=== PATIENT | female | born 1970 | race Caucasian/White ===

== ENCOUNTER 2020-02-19 14:56 | Outpatient (REF) | payer BC, SELFPAY | END 2020-02-19 14:57 | disposition home or self-care (01) | LOC: HO.LNP 14:56 | PROVIDERS: Visit Provider Hospitalist | DX: Z20.828 Contact with and (suspected) exposure to other viral communicable diseases (principal) | CPT/HCPCS: 87635 ==

== ENCOUNTER 2020-08-29 07:58 | Outpatient (REF) | payer BC, SELFPAY ==
[2020-08-29 08:45] LABS: MANUAL DIFF FLAG NO
[2020-08-29 08:47] LABS: Color Urine YELLOW; Glucose Urine UA NEG (NEG); Leukocyte Esterase Urine NEG (NEG); Nitrite Urine NEG (NEG); PH 5.5 (5.0-8.0); Specific Gravity - Urine >= 1.030 (1.005-1.025); Urine Blood NEG (NEG); Urine Ketones NEG (NEG); Urine Protein NEG (NEG-TRACE)
[2020-08-29 08:48] LABS: Appearance Urine CLEAR
[2020-08-29 08:51] LABS: Basophils Percent Auto 0.9 % (0-2); Eosinophils Absolute Auto 0.2 X10*3/uL (0.0-0.4); Eosinophils Percent Auto 3.8 % (0-4); Hematocrit 35.8 % (37-47); Hemoglobin 11.8 g/dl (12.0-16.0); Imm Gran Abs Auto 0.01 X10*3/uL (0.00-0.03); Imm Gran Pct Auto 0.2 % (0.0-0.4); Lymphocytes Absolute Auto 1.7 X10*3/uL (1.2-4.9); Lymphocytes Percent Auto 37.5 % (20-40); Mean Platelet Volume 10.1 fL (9.4-12.3); Monocytes Absolute Auto 0.3 X10*3/uL (0.1-1.2); Monocytes Percent Auto 7.1 % (2-11); Neutrophils Absolute Auto 2.3 X10*3/uL (2.0-8.3); Neutrophils Percent Auto 50.5 % (45-73); Platelet Count 261 X10*3/uL (160-400); Red Blood Count 3.81 X10*6/uL (4.20-5.50); Red Cell Distribution Width 12.1 % (11.0-16.0); White Blood Count 4.5 X10*3/uL (4.8-10.8)
[2020-08-29 09:10] LABS: Alanine Aminotransferase 21 U/L (0-31); Albumin Level 4.6 g/dL (3.5-5.0); Alkaline Phosphatase 55 U/L (39-117); Anion Gap 10 (12-20); Aspartate Amino Transferase 21 U/L (5-31); Bilirubin Total 0.3 mg/dL (0.0-1.0); Blood Urea Nitrogen 22 mg/dL (9-16); Calcium 9.3 mg/dL (8.4-10.2); Carbon Dioxide 28 mmol/L (22-29); Chloride 108 mmol/L (96-108); Cholesterol 227 mg/dL; Estimated Glomerular Filt Rate > 60; Glucose Fasting 100 mg/dL (60-99); HDL Cholesterol 51 mg/dL; LDL Cholesterol Calculated 161 mg/dl; Potassium 5.4 mmol/L (3.3-5.1); Sodium 141 mmol/L (135-145); Total Protein 6.8 g/dL (6.5-8.0); Triglycerides 76 mg/dL
[2020-08-29 09:35] LABS: TSH reflex Free T4 0.45 uIU/mL (0.32-4.0)
[2020-08-29 09:36] LABS: Erythrocyte Sedimentation Rate 6 MM/HR (0-20)
== END 2020-08-29 07:59 | disposition home or self-care (01) ==
LOC: HO.LAB 07:58
PROVIDERS: PCP Internal Medicine; Visit Provider Internal Medicine
DX: J30.9 Allergic rhinitis, unspecified (principal); K29.70 Gastritis, unspecified, without bleeding; G90.512 Complex regional pain syndrome I of left upper limb; M19.011 Primary osteoarthritis, right shoulder; M47.26 Other spondylosis with radiculopathy, lumbar region; M47.812 Spondylosis without myelopathy or radiculopathy, cervical region; E66.3 Overweight; E78.00 Pure hypercholesterolemia, unspecified
CPT/HCPCS: 36415; 80053; 80061; 81003; 84443; 85025; 85652

== ENCOUNTER 2020-12-06 12:15 | Outpatient (REF) | payer BC, SELFPAY ==
[2020-12-06 14:01] LABS: MANUAL DIFF FLAG NO
[2020-12-06 14:06] LABS: Basophils Percent Auto 0.5 % (0-2); Eosinophils Absolute Auto 0.2 X10*3/uL (0.0-0.4); Eosinophils Percent Auto 2.5 % (0-4); Hemoglobin 12.2 g/dl (12.0-16.0); Imm Gran Abs Auto 0.02 X10*3/uL (0.00-0.03); Imm Gran Pct Auto 0.3 % (0.0-0.4); Lymphocytes Absolute Auto 2.4 X10*3/uL (1.2-4.9); Lymphocytes Percent Auto 39.6 % (20-40); Mean Corpuscular Hemoglobin 30.7 pg (27.0-33.0); Mean Corpuscular Volume 93.2 fL (80-98); Mean Platelet Volume 10.4 fL (9.4-12.3); Monocytes Absolute Auto 0.4 X10*3/uL (0.1-1.2); Monocytes Percent Auto 6.5 % (2-11); Neutrophils Percent Auto 50.6 % (45-73); Platelet Count 339 X10*3/uL (160-400); Red Blood Count 3.97 X10*6/uL (4.20-5.50); Red Cell Distribution Width 12.1 % (11.0-16.0)
[2020-12-06 14:18] LABS: Anion Gap 13 (12-20); Blood Urea Nitrogen 16 mg/dL (9-16); Calcium 9.2 mg/dL (8.4-10.2); Carbon Dioxide 26 mmol/L (22-29); Chloride 109 mmol/L (96-108); Estimated Glomerular Filt Rate > 60; Glucose Random 94 mg/dL (60-115); Potassium 4.5 mmol/L (3.3-5.1); Sodium 143 mmol/L (135-145)
== END 2020-12-06 12:16 | disposition home or self-care (01) ==
LOC: HO.HMGCLDS 12:15
PROVIDERS: PCP Internal Medicine; Visit Provider Nurse Practitioner Family
DX: Z20.822 Contact with and (suspected) exposure to COVID-19 (principal); R19.7 Diarrhea, unspecified
CPT/HCPCS: 36415; 80048; 85025; U0003; U0005

== ENCOUNTER → 2021-01-16 13:03 | Outpatient (BNVA) | payer BC, SELFPAY | PROVIDERS: PCP Internal Medicine; Visit Provider Internal Medicine ==

== ENCOUNTER 2021-03-01 06:07 | Outpatient (REF) | payer BC, SELFPAY ==
--- NOTE | ~2021-03-01 | FL_ITS ---
EXAMINATION: XR FLUOROSCOPY WITH IMAGES CLINICAL INFORMATION: M47.26 - Other spondylosis with radiculopathy, lumbar region COMPARISON: Radiographs lumbar spine 02/03/2019 TECHNIQUE: Fluoroscopy performed by Dr. Chen. Fluoroscopy time: 1.0 minutes DAP: 2.56 Gycm2 Images: 3 FINDINGS: There are spinal needles overlying the outer left L4, and L5 neural foramen. There is contrast seen in the respective nerve sheaths. Some early transforaminal epidural extension is suggested. No visible vascular communication. FL/FL guidance in treatment room IMPRESSION: Fluoroscopy for pain management procedures.
== END 2021-03-01 06:08 | disposition home or self-care (01) ==
LOC: HO.RADIR 06:07
PROVIDERS: Visit Provider Internal Medicine
DX: M47.26 Other spondylosis with radiculopathy, lumbar region (principal); M53.86 Other specified dorsopathies, lumbar region
CPT/HCPCS: 64483; 64484; J1100; Q9967

== ENCOUNTER → 2021-04-07 08:02 | Outpatient (BNVA) | payer BC, SELFPAY | PROVIDERS: PCP Internal Medicine; Visit Provider Internal Medicine ==

== ENCOUNTER → 2021-05-15 14:17 | Outpatient (BNVA) | payer BC, SELFPAY | PROVIDERS: PCP Internal Medicine; Visit Provider Internal Medicine ==

== ENCOUNTER 2021-06-14 06:21 | Outpatient (REF) | payer BC, SELFPAY ==
--- NOTE | ~2021-06-14 | FL_ITS ---
EXAMINATION: XR FLUOROSCOPY WITH IMAGES CLINICAL INFORMATION: Pain lumbar region COMPARISON: 03/01/2021 TECHNIQUE: Fluoroscopy performed by Dr. Chen. Fluoroscopy time: 0.1 minutes DAP: 0.306 Gycm2 Images: 2 images are saved. FL/FL guidance in treatment room FINDINGS AND IMPRESSION: Fluoroscopic imaging equipment was needed during injection procedure at the left L5-S1 level. For details regarding the procedure, please refer to Dr. Chen' report.
== END 2021-06-14 06:22 | disposition home or self-care (01) ==
LOC: HO.RADIR 06:21
PROVIDERS: Visit Provider Internal Medicine
DX: M53.86 Other specified dorsopathies, lumbar region (principal)
CPT/HCPCS: 62323; J1040; Q9967

== ENCOUNTER → 2021-06-23 11:17 | Outpatient (BNVA) | payer BC, SELFPAY | PROVIDERS: PCP Internal Medicine; Visit Provider Internal Medicine ==

== ENCOUNTER 2021-06-29 11:00 | Outpatient (RCR) | payer BC, SELFPAY ==
--- NOTE | 2021-06-20 18:11 | MHC.PT.EP ---
[facility] [place] Office [place] Office [place] Office [address] Bandra Nichols [address] [phone] F: [phone] F: [phone] F: [phone] F: [phone] Physical Therapy Plan of Care Date of Evaluation: Date of Surgery: N/A Diagnosis: Sciatica associated with lumbar spine Assessment: Pt is a 51yo F who presents to PT with low back pain radiating into L LE. She presents today with current impairments in pain, decreased lumbar ROM, decreased core stab, decreased LE strength, impaired postured, gait, and balance. She had increased pain when assessing L knee extension and L dorsiflexion which may be due to increased neural tension. She is limited functionally by prolonged sitting, prolonged standing, walking, bending, and stair navigation. Her radiating symptoms were centralizing with extension based exercises on initial evaluation. Her signs and symptoms may be consistent with lumbar radiculopathy. She is a good candidate for skilled PT in order to address current impairments to decrease pain and maximize functional mobility. She will be seen 2x/week for 5 weeks and will be reassessed at that time. Frequency and Duration: The patient will be seen 2x/week for 5 weeks Short Term Goals: Pt will be I with HEP to promote self management of symptoms Pt will have centralization of symptoms Pt will demonstrate improvements in postural awareness and body mechanics Vp Home Health Goals: Pt will tolerate ambulation > 30 min with improved gait mechanics with pain < 4 /10 Pt will demonstrate ability to squat to cotton picker object from the floor with proper mechanics Pt will demonstrate improvements in functional mobility as evidenced by statistically significant improvement in Modified Oswestry Low Back Pain Disability Questionnaire Treatment Plan: Modalities to reduce pain, spasms and effusion. Manual therapy to restore motion and function. Therapeutic exercise to improve strength and flexibility. Neuromuscular re-education for posture and balance. Therapeutic activities to return to functional activities of daily living. Electronically signed by: Fallon Bartholomew, PT, DPT Please sign and return to therapist. Thank you for your referral.
--- NOTE | 2021-07-10 10:23 | MHC.PT.DC ---
[facility] [place] Office [place] Office [place] Office [address] Bandar Nichols [address] [phone] F: [phone] F: [phone] F: [phone] F: [phone] Physical Therapy Discharge Report Diagnosis: Sciatica associated with lumbar spine Date of Surgery: N/A Date of Evaluation: 06/20/21 Date of Discharge: 07/10/21 Treatments to Date: 2 Cancellations to Date: 2 No Shows to Date: 0 Discharge Status: Patient Elected to Stop Discharge Summary: Pt attended initial PT evaluation and 1 treatment session. Her last attended PT appointment was 06/29/21. Pt called [facility] 07/06/21 and reports that she fell and requested to self D/C from PT. Pt is being D/C from skilled PT at this time. Pt current level of function unknown at this time. Electronically signed by: Fallon Bartholomew, PT, DPT Please sign and return to therapist. Thank you for your referral.
== END 2021-07-10 10:24 | disposition home or self-care (01) ==
LOC: HO.PT 11:00
PROVIDERS: PCP Internal Medicine; Visit Provider Internal Medicine
DX: M53.88 Other specified dorsopathies, sacral and sacrococcygeal region (principal)
CPT/HCPCS: 97014; 97110; 97162

== ENCOUNTER → 2021-07-14 08:34 | Outpatient (BNVA) | payer BC, SELFPAY | PROVIDERS: PCP Internal Medicine; Visit Provider Internal Medicine ==

== ENCOUNTER 2021-11-25 09:56 | Emergency (ER) | payer BC, SELFPAY ==
--- NOTE | ~2021-11-25 | XR_ITS ---
EXAMINATION: XR HAND, LEFT CLINICAL INFORMATION: Pain. Evaluate for a fracture. COMPARISON: Left hand radiographs dated 02/23/2019. TECHNIQUE: PA, lateral, and oblique views of the left hand. FINDINGS: No acute fracture or dislocation. Severe joint space narrowing with prominent bony remodeling and marginal osteophytes at the 1st carpometacarpal joint. More moderate osteoarthritis at the triscaphe joint as well as scattered throughout the metacarpophalangeal and interphalangeal joints. No abnormal soft tissue calcification. XR/XR hand LT 2V IMPRESSION: No acute fracture or dislocation. Severe osteoarthritis at the 1st carpometacarpal joint with additional osteoarthritis throughout the triscaphe, metacarpophalangeal, and interphalangeal joints, slightly progressed.
[2021-11-25 10:51] VITALS: BP 131/73; PULSE 88; RESP 16; TEMP 35.7; O2SAT 100; BMI 21.7
--- NOTE | 2021-11-25 12:45 | ED.EXTPRO ---
HPI - Extremity Problem General Chief complaint: Extremity Injury, Upper Stated complaint: ? Fx L Thumb Time Seen by Provider: 11/25/21 12:32 Source: patient Mode of arrival: ambulatory Limitations: no limitations History of Present Illness HPI Narrative: Patient is a 51 year old female presenting to the emergency department today with left thumb pain. Patient states that she was attempting to break up a fight between her dog and another dog when her left thumb was pushed backwards and she felt a pop. Patient states that the left thumb still hurts and she is unable to move it. Patient denies any dizziness, lightheadedness, abdominal pain, nausea, vomiting, fever, chills, blurry vision, double vision, loss of vision, chest pain, difficulty breathing, shortness of breath, back pain, night sweats, pain with urination, increased urinary frequency, increased urinary urgency, blood in her urine or stool, syncope or a near syncopal episode, bowel incontinence, bladder incontinence, bowel retention, bladder retention, or any other complaints at this time. MD Complaint: extremity pain Onset (ago): hour(s) Pain Consistency: constant Location: left and other (thumb) Severity scale (1-10): 3 Quality: aching and dull Radiation: none Relieving factors: nothing Exacerbating factors: range of motion Associated symptoms: denies other symptoms Related Data Home Medications Medication Instructions Recorded Confirmed omeprazole 20 mg capsule,delayed 20 mg PO DAILY 02/19/20 10/16/21 release sennosides 8.6 mg tablet (Senna 8.6 mg PO BEDTIME 03/10/20 10/16/21 Laxative) Previous Rx's Medication Instructions Recorded citalopram 20 mg tablet 20 mg PO DAILY 90 days #90 tabs 07/10/21 sumatriptan succinate 100 mg tablet 100 mg PO .COMPLEX 30 days #10 tabs 10/13/21 cyclobenzaprine 10 mg tablet 10 mg PO Q8H PRN for muscle spasm 11/20/21 #90 tabs hydrocodone 7.5 mg-acetaminophen 1 tab PO .4x a day PRN pain 28 11/20/21 325 mg tablet days #112 tabs lorazepam 1 mg tablet 1 mg PO QID PRN anxiety 30 days 11/20/21 #120 tabs Allergies Allergy/AdvReac Type Severity Reaction Status Date / Time amoxicillin [Amoxicillin] Allergy Severe RASH Verified 11/25/21 10:55 Sulfa (Sulfonamide Allergy Severe RASH Verified 11/25/21 10:55 Antibiotics) pravastatin Allergy Unknown myalgia Verified 11/25/21 10:55 pregabalin Allergy Unknown Muscle Verified 11/25/21 10:55 cramps atorvastatin AdvReac Unknown leg pain Verified 11/25/21 10:55 and swelling ezetimibe [Zetia] AdvReac Unknown joint pain Verified 11/25/21 10:55 oxycodone [Percocet] AdvReac Unknown nausea, Verified 11/25/21 10:55 upset stomach, increased headaches rosuvastatin AdvReac Unknown myalgia Verified 11/25/21 10:55 Review of Systems Constitutional: Constitutional: Reports no additional constitutional complaints, Denies chills, Denies fever(s) and Denies night sweats Eyes: Eyes: Reports no additional eye complaints, Denies blurry vision, Denies change in vision, Denies diplopia, Denies eye discharge, Denies loss of vision and Denies eye pain ENT: Denies dizziness Cardiovascular: Cardiovascular: Reports no additional cardiovascular complaints, Denies chest pain, Denies lightheadedness, Denies Loss of Consciousness and Denies dyspnea Respiratory: Respiratory: Reports no additional respiratory complaints and Denies dyspnea Gastrointestinal: Gastrointestinal: Reports no additional gastrointestinal complaints, Denies abdominal pain, Denies melena, Denies hematochezia, Denies change in bowel habits and Denies change in stool character Genitourinary: Genitourinary: Denies hematuria, Denies urinary frequency, Denies dysuria, Denies urinary incontinence, Denies urinary hesitancy and Denies urinary urgency Musculoskeletal: Musculoskeletal: Reports no additional musculoskeletal complaints, Denies numbness and Denies tingling Comments: left thumb pain Neurologic: Denies dizziness, Denies loss of vision, Denies numbness and Denies tingling Psychiatric: Psychiatric: Reports no additional psychiatric complaints Endocrine: Endocrine: Reports no additional endocrine complaints Hematologic/Lymphatic: Hematologic/Lymphatic: Reports no additional hematologic/lymphatic complaints Allergic/Immunologic: Allergic/Immunologic: Reports no additional allergic/immunologic complaints PMFSH Past Medical History Attestation statement: The following information was validated with the patient. Source: old records reviewed Medical History Allergic rhinitis Anxiety Cervical spondylosis Depression Gastritis Migraine Osteoarthritis of spine with radiculopathy, lumbar region Overweight (BMI 25.0-29.9) Primary osteoarthritis of right shoulder Pure hypercholesterolemia Reflex sympathetic dystrophy of left upper extremity Surgical History History of carpal tunnel release History of cervical discectomy History of colonoscopy History of removal of cyst History of repair of rotator cuff S/P JOLENE-BSO (total abdominal hysterectomy and bilateral salpingo-oophorectomy) Family History Family History Father Prostate cancer Mother Lung cancer Hypertension CVD (cardiovascular disease) Diabetes Chronic mental illness Maternal Grandmother Colon cancer Other Mental health problem Social History Social History Housing: House Alcohol intake: never Patient Tobacco Use Status: Former Tobacco user e-Cigarette/Vaping Use: Never Used Second Hand Smoke Exposure: Yes Use of substances other than those prescribed or required for medical reasons: No Advance Directives: No Advance Directives Information Provided: No service: No Current occupational status: employed Cognitive needs: No Hearing needs: No Vision needs: Yes Physical Exam Vital Signs: Vital Signs: Last Vital Signs Temp 96.2 F L 11/25/21 10:51 Pulse 88 11/25/21 10:51 Resp 16 11/25/21 10:51 BP 131/73 11/25/21 10:51 Pulse Ox 100 11/25/21 10:51 O2 Del Method 11/25/21 10:51 BMI result Body Mass Index 21.7 Const: General: cooperative, no acute distress, alert and awake Nutritional Appearance: well nourished Orientation/consciousness: patient oriented x3 Limitations: no limitations HEENT: Head: Yes normal to inspection and Yes atraumatic Ears: hearing grossly normal bilaterally and external ears normal General nose exam: Normal external nose present, no nasal discharge noted and no epistaxis Face and sinus: Yes normal facial exam, No abrasion and No laceration Mouth: Normal oral and palatal mucosa present, no drooling and no muffled voice Eyes: General: appearance normal, both eyes and all related structures Periorbital: periorbital findings normal Eyelids: Yes eyelids normal Conjunctivae: conjunctivae normal Pupils: Equal, round and reactive pupils present EOM: EOMs intact bilaterally Neck: Neck: Yes normal visual inspection, Yes full ROM and Yes no lymphadenopathy Chest: Chest palpation & inspection: normal inspection of the chest Resp: Effort & Inspection: normal respiratory effort and able to speak in complete sentences Auscultation: clear to auscultation bilaterally Cardio: Rate: regular rate Rhythm: regular rhythm GI: Inspection: Yes normal to inspection Neuro: General: patient oriented x3 and moves all extremities Cranial nerves: Yes Equal, round and reactive pupils present Cognition (Neuro): normal cognition Motor exam (neuro): 5/5 motor strength present throughout Sensory Exam: Normal double simultaneous stimulation for sensation Coordination: [id number] test normal Extrem: Other: decreased ROM of the left thumb, unable to touch left thumb to finger tips General: Yes normal to inspection and Yes capillary refill normal Psych: Appearance: grossly normal Mental Status: mental status grossly normal Affect: normal affect Attitude: cooperative Thought process: Normal thought process present Thought content: Normal thought content present Insight: Good insight present (Psych) MDM - Extremity (Nontraumatic) MDM Narrative Medical decision making narrative: Patient is a 51 year old female presenting to the emergency department today with left thumb pain. Patient's physical exam showed decreased ROM of the left thumb. Patient was unable to touch left thumb to left finger tips. Patient's left hand x-ray showed no acute fracture but did show worsening osteoarthritis. I explained my physical exam findings as well as all test results to the patient. I answered all questions asked by the patient. Thumb spica splint applied to the patient's left thumb, without incident. Patient's PMS was in tact prior to and after splint placement. I stressed the importance of the patient taking her medication as prescribed. I stressed the importance of the patient following up with her primary care provider. I stressed the importance of the patient returning to the emergency department immediately if her symptoms were to worsen or if she were to develop any dizziness, shortness of breath, difficulty breathing, chest pain, blurry vision, loss of vision, nausea, vomiting, abdominal pain, fever, chills, back pain, or any other complaints. Patient verbalized agreement and understanding with this treatment plan and discharge. Medical Records Attestation: I reviewed the patient's medical records. Imaging Data Left hand x-ray: Attestation: I personally reviewed and interpreted this imaging study as follows: My impression: No acute fracture. Radiologist's impression: EXAMINATION: XR HAND, LEFT CLINICAL INFORMATION: Pain. Evaluate for a fracture.? COMPARISON: Left hand radiographs dated 02/23/2019.? TECHNIQUE: PA, lateral, and oblique views of the left hand. FINDINGS: No acute fracture or dislocation. Severe joint space narrowing with prominent bony remodeling and marginal osteophytes at the 1st carpometacarpal joint. More moderate osteoarthritis at the triscaphe joint as well as scattered throughout the metacarpophalangeal and interphalangeal joints. No abnormal soft tissue calcification.? XR/XR hand LT 2V IMPRESSION: No acute fracture or dislocation. ? Severe osteoarthritis at the 1st carpometacarpal joint with additional osteoarthritis throughout the triscaphe, metacarpophalangeal, and interphalangeal joints, slightly progressed. Dictated By: Daniel Castellanos MD Signed By: Electronically signed by Daniel Castellanos MD 11/25/21 1137 Procedures Orthopedic Splinting/Casting Injury #1: Side: left Upper Extremity Injury Location: hand Upper Extremity Immobilizer: thumb spica Discharge Plan Discharge Clinical Impression: Skier's thumb Patient Disposition: Home, Self-Care Instructions: Carolinaer's Thumb (ED) Additional Instructions: Follow up with your primary care provider and an orthopedic provider. Return to the emergency department immediately if your symptoms worsen or if you develop any dizziness, shortness of breath, difficulty breathing, chest pain, blurry vision, loss of vision, nausea, vomiting, abdominal pain, fever, chills, back pain, or any other complaints. Prescriptions: No Action sumatriptan succinate 100 mg tablet 100 mg PO .COMPLEX 30 Days Qty: 10 3RF Rx Instructions: 100 mg PO as directed as needed. may repeat one more time if needed; hydrocodone-acetaminophen 7.5-325 mg tablet 1 tab PO .4x a day PRN (Reason: pain) 28 Days Qty: 112 0RF lorazepam 1 mg tablet 1 mg PO QID PRN (Reason: anxiety) 30 Days Qty: 120 1RF cyclobenzaprine 10 mg tablet 10 mg PO Q8H PRN (Reason: for muscle spasm) Qty: 90 1RF omeprazole 20 mg capsule,delayed release(DR/EC) 20 mg PO DAILY sennosides [Senna Laxative] 8.6 mg tablet 8.6 mg PO BEDTIME citalopram 20 mg tablet 20 mg PO DAILY 90 Days Qty: 90 3RF Referrals: [facility] [place] [Provider Group] (Call to establish and follow up with an orthopedic provider. ) Claude Steele MD [Primary Care Provider] - Interventions: ED Discharge Assessment Last Done: 11/25/21 13:03 Discharge Date/Time: 11/25/21 13:04 Print Language: Ethiopian
== END 2021-11-25 13:03 | disposition home or self-care (01) ==
PROVIDERS: Emergency Provider Student in an Organized Health Care Education/Training Program; PCP Internal Medicine
DX: S63.622A Sprain of interphalangeal joint of left thumb, initial encounter (principal); W54.8XXA Other contact with dog, initial encounter; Y93.89 Activity, other specified; Y92.9 Unspecified place or not applicable; Y99.9 Unspecified external cause status; M19.042 Primary osteoarthritis, left hand; M18.12 Unilateral primary osteoarthritis of first carpometacarpal joint, left hand
CPT/HCPCS: 29125; 73120; 99283

== ENCOUNTER 2021-11-28 13:11 | Outpatient (REF) | payer BC, SELFPAY ==
--- NOTE | ~2021-11-28 | XR_ITS ---
EXAMINATION: XR HAND, LEFT CLINICAL INFORMATION: Hand pain COMPARISON: 11/25/2021 TECHNIQUE: PA, lateral, and oblique views of the left hand. FINDINGS: Radiopaque rings are present on the third and fourth digits. No acute fracture or dislocation. Mild degenerative changes at the first interphalangeal joint and first metacarpophalangeal joint with osteophytes present. Severe degenerative change of the first carpometacarpal joint with narrowing, sclerosis, and osteophyte formation. Additional mild degenerative changes throughout the interphalangeal joints of the remaining digits with small osteophytes noted. The soft tissues are unremarkable. XR/XR hand LT min 3V IMPRESSION: Degenerative changes throughout, which are similar to the recent prior imaging.
== END 2021-11-28 13:12 | disposition home or self-care (01) ==
LOC: HO.HOSX 13:11
PROVIDERS: Visit Provider Orthopaedic Surgery
DX: M79.642 Pain in left hand (principal)
CPT/HCPCS: 73130

== ENCOUNTER 2021-12-27 08:27 | Outpatient (REF) | payer BC, SELFPAY ==
--- NOTE | ~2021-12-27 | XR_ITS ---
EXAMINATION: XR WRIST, LEFT CLINICAL INFORMATION: Pain. COMPARISON: None TECHNIQUE: PA, lateral, and oblique views of the left wrist, together with a dedicated navicular view. FINDINGS: There is bony demineralization. There is a neutral ulnar variance. There is marked osteoarthritic change of the first carpometacarpal joint. There is mild to moderate osteoarthritic change of the triscaphe joint. The proximal and distal carpal rows are intact. No fracture or dislocation is seen. There is no abnormal bone erosion. No soft tissue swelling, gas or foreign body is seen. XR/XR wrist LT w scaphoid IMPRESSION: There is osteoarthritic change of the left first carpometacarpal and triscaphe joints. No fracture or dislocation is seen. There is no abnormal bone erosion.
== END 2021-12-27 08:28 | disposition home or self-care (01) ==
LOC: HO.HOSX 08:27
PROVIDERS: Visit Provider Orthopaedic Surgery
DX: M25.532 Pain in left wrist (principal)
CPT/HCPCS: 73110

== ENCOUNTER 2022-01-23 10:01 | Outpatient (REF) | payer BC, SELFPAY ==
--- NOTE | ~2022-01-23 | MR_ITS ---
EXAMINATION: MRI OF THE LEFT WRIST WITHOUT CONTRAST CLINICAL INFORMATION: Left wrist pain. COMPARISON: Radiograph dated 12/27/2021. TECHNIQUE: Multiplanar MR imaging was obtained through the left wrist without contrast on a 1.5 Debra magnet. FINDINGS: LIGAMENTS/TFCC: Ill-defined intermediate signal intensity is present throughout 3 bands of the scapholunate ligament, likely due to intraligamentous degenerative signal. A sprain is less likely. Small ganglion cyst likely arises at the palmar aspect of the scapholunate ligament with small cystic foci extending into the scaphoid and lunate. Lunotriquetral ligament and the TFCC are intact. BONES AND ARTICULAR CARTILAGE: Severe osteoarthritis is evident at the 1st CMC joint with marked nonuniform articular cartilage loss, articular cortical remodeling, subarticular sclerosis, large marginal osteophytes, and subchondral cystic change. There is more [id number] osteoarthritis in the triscaphe joint as well as mild osteoarthritis in the radiocarpal, 2nd CMC, and pisotriquetral joints. Multiple carpal cysts are evident in the carpal bones without appreciable erosions. No fractures. Alignment appears appropriate. JOINT FLUID: No effusion. Small volume of intra-articular debris in the radiocarpal joint. MUSCLES AND TENDONS: Intact. No tendon tears or tenosynovitis. Normal muscle signal.l NERVES: Carpal tunnel and Guyon's canal are unremarkable. SUPERFICIAL SOFT TISSUES: No significant ganglion cysts. MR/MR wrist LT wo con IMPRESSION: 1. Severe osteoarthritis of the 1st CMC joint. More mild osteoarthritis in other wrist joints, most notably the triscaphe joint. 2. Intermediate signal in the scapholunate ligament is likely due to intrasubstance degeneration. No discrete tears. A mild sprain is possible, though felt to be less likely.
== END 2022-01-23 10:02 | disposition home or self-care (01) ==
LOC: HO.MRI 10:01
PROVIDERS: Visit Provider Orthopaedic Surgery
DX: M25.532 Pain in left wrist (principal)
CPT/HCPCS: 73221

== ENCOUNTER 2022-06-12 14:09 | Outpatient (REF) | payer BC, SELFPAY ==
[2022-06-12 15:03] LABS: Influenza A PCR NEGATIVE (Negative); Influenza B PCR NEGATIVE (Negative); Resp Syncy Virus RNA Qual PCR NEGATIVE (Negative); SARS COV2 PCR INHOUSE NEGATIVE (Negative)
== END 2022-06-12 14:10 | disposition home or self-care (01) ==
LOC: HO.LNP 14:09
PROVIDERS: Visit Provider Nurse Practitioner Family
DX: R09.89 Other specified symptoms and signs involving the circulatory and respiratory systems (principal); Z20.822 Contact with and (suspected) exposure to COVID-19
CPT/HCPCS: 0241U

== ENCOUNTER 2022-11-20 09:13 | Outpatient (REF) | payer MEDICAID, SELFPAY ==
[2022-11-20 09:32] LABS: MANUAL DIFF FLAG NO
[2022-11-20 09:58] LABS: Appearance Urine Clear; Color Urine Yellow; Glucose Urine UA Negative (Negative); Leukocyte Esterase Urine Negative (Negative); Nitrite Urine Negative (Negative); PH 5.5 (5.0-9.0); Specific Gravity - Urine 1.025 (1.005-1.025); Urine Blood Negative (Negative); Urine Ketones Negative (Negative); Urine Protein Negative (Neg-Trace)
[2022-11-20 09:58] LABS: Basophils Percent Auto 0.7 % (0-2); Eosinophils Absolute Auto 0.1 X10*3/uL (0.0-0.4); Eosinophils Percent Auto 1.2 % (0-4); Hematocrit 37.3 % (37.0-47.0); Hemoglobin 12.4 g/dl (12.0-16.0); Imm Gran Abs Auto 0.01 X10*3/uL (0.00-0.03); Imm Gran Pct Auto 0.2 % (0.0-0.4); Lymphocytes Absolute Auto 1.6 X10*3/uL (1.2-4.9); Mean Corpuscular HGB Conc 33.2 g/dl (31.0-35.0); Mean Corpuscular Hemoglobin 31.5 pg (27.0-33.0); Mean Corpuscular Volume 94.7 fL (80.0-98.0); Mean Platelet Volume 10.3 fL (9.4-12.3); Monocytes Absolute Auto 0.3 X10*3/uL (0.1-1.2); Monocytes Percent Auto 5.4 % (2-11); Neutrophils Percent Auto 65.5 % (45-73); Platelet Count 312 X10*3/uL (160-400); Red Blood Count 3.94 X10*6/uL (4.20-5.50); Red Cell Distribution Width 12.3 % (11.0-16.0); White Blood Count 6.1 X10*3/uL (4.8-10.8)
[2022-11-20 10:37] LABS: Erythrocyte Sedimentation Rate 4 MM/HR (0-20)
[2022-11-20 10:49] LABS: Alanine Aminotransferase 16 U/L (0-31); Albumin Level 4.7 g/dL (3.5-5.0); Alkaline Phosphatase 60 U/L (39-117); Anion Gap 13 (12-20); Aspartate Amino Transferase 13 U/L (5-31); Bilirubin Total 0.3 mg/dL (0.0-1.0); Blood Urea Nitrogen 19 mg/dL (9-16); Calcium 9.1 mg/dL (8.4-10.2); Carbon Dioxide 25 mmol/L (22-29); Chloride 107 mmol/L (96-108); Cholesterol 231 mg/dL; Estimated Glomerular Filt Rate > 60; Glucose Fasting 97 mg/dL (60-99); HDL Cholesterol 55 mg/dL; LDL Cholesterol Calculated 157 mg/dl; Potassium 4.7 mmol/L (3.3-5.1); Sodium 140 mmol/L (135-145); Total Protein 7.1 g/dL (6.5-8.0); Triglycerides 99 mg/dL
[2022-11-20 11:05] LABS: TSH reflex Free T4 0.46 uIU/mL (0.32-4.0)
== END 2022-11-20 09:14 | disposition home or self-care (01) ==
LOC: HO.LAB 09:13
PROVIDERS: PCP Internal Medicine; Visit Provider Internal Medicine
DX: Z00.00 Encounter for general adult medical examination without abnormal findings (principal); E55.9 Vitamin D deficiency, unspecified; J30.9 Allergic rhinitis, unspecified; E78.00 Pure hypercholesterolemia, unspecified; R30.0 Dysuria; M79.7 Fibromyalgia
CPT/HCPCS: 36415; 80053; 80061; 81003; 82306; 84443; 85025; 85652

== ENCOUNTER 2023-01-31 09:04 | Outpatient (AMB) | payer OTHER, SELFPAY ==
[2023-01-31 09:08] VITALS: BP 124/80; PULSE 75; O2SAT 99; BMI 19.4
--- NOTE | 2023-01-31 09:08 | MHC.PC.OV ---
Vital Signs 01/31/23 09:08 Height 5 ft 6 in Weight 120 lb BMI 19.4 BP 124/80 Blood Pressure Location Lt brachial Position Sitting Pulse 75 Pulse Source Pulse Oximeter Pulse Oximetry (%) 99 Oxygen Delivery Method Room Air Intake Visit Reasons: 3 month f/u Logistician Required: No Accompanied by: Self / Same As Patient Allergies amoxicillin [Amoxicillin] Allergy (Severe, Verified 01/31/23 09:56) RASH Sulfa (Sulfonamide Antibiotics) Allergy (Severe, Verified 01/31/23 09:56) RASH pravastatin Allergy (Unknown, Verified 01/31/23 09:56) myalgia pregabalin Allergy (Unknown, Verified 01/31/23 09:56) Muscle cramps atorvastatin Adverse Reaction (Unknown, Verified 01/31/23 09:56) leg pain and swelling ezetimibe [Zetia] Adverse Reaction (Unknown, Verified 01/31/23 09:56) joint pain oxycodone [Percocet] Adverse Reaction (Unknown, Verified 01/31/23 09:56) nausea, upset stomach, increased headaches rosuvastatin Adverse Reaction (Unknown, Verified 01/31/23 09:56) myalgia Medication List - Last Reconciled 01/31/23 by Claude Steele MD citalopram 20 mg PO DAILY 90 days hydrocodone-acetaminophen 7.5-325 mg 1 tab PO .4x a day PRN 28 days lorazepam 1 mg PO QID PRN 30 days omeprazole 20 mg PO DAILY sennosides (Senna Laxative) 8.6 mg PO BEDTIME sumatriptan succinate 100 mg PO as directed as needed. may repeat one more time if needed; 30 days zolpidem 10 mg PO BEDTIME PRN NS Tobacco use date assessed: 01/31/23 Dental Screening Dental Screen Date: 01/31/23 Did you have a dental visit in the last 12 months?: Yes Did you have a dental problem in the last 6 months where you did not have access to dental care?: No Was dental information given to patient?: Patient has dentist HPI 3 month f/u HPI Details Patient comes in today for her follow up visit States that she has been losing a lot of weight (unintentionally) lately Is still experiencing increased pain (chronic) over her lower back and over her left SI joint area She underwent MIS fixation of the left SI joint for stabilization with Dr. Salvador Hurt last February 2022 at the [facility] States that the surgery helped somewhat in the beginning but her pain seems to have gotten worse again lately She was seen by orthopedics at [facility] last month for her recurrent right shoulder pain Was reportedly diagnosed with a frozen shoulder and given a cortisone injection, which she states helped a lot Relates increased pain over her back at the lower thoracic area bilaterally (at the bra line) for the past 3 months Notes that the pain there feels worse with deep breathing and with movement and exertion Does not recall any recent injury or trauma to her back States that she also had trouble getting her pain med Rx refilled recently due to some dispute between her pharmacy chain and her insurance company and she had to switch her pharmacy now to [facility] in [place] Also relates experiencing recurrent sharp pains in her right ear for over a month now She denies any fever or sore throat; denies any cough or cold symptoms lately Denies any chest pains, no shortness of breath No nausea/ vomiting, no abdominal pain No change in bowel habits noted She had her follow-up labs done a couple of months ago - to discuss her results [facility] Medical History Overweight (BMI 25.0-29.9) Depression Anxiety Allergic rhinitis Gastritis Reflex sympathetic dystrophy of left upper extremity Cervical spondylosis Osteoarthritis of spine with radiculopathy, lumbar region Primary osteoarthritis of right shoulder Pure hypercholesterolemia Migraine Surgical History History of cervical discectomy S/P JOLENE-BSO (total abdominal hysterectomy and bilateral salpingo-oophorectomy) History of carpal tunnel release History of removal of cyst History of colonoscopy History of repair of rotator cuff Family History Father Prostate cancer Mother Lung cancer Hypertension CVD (cardiovascular disease) Diabetes Chronic mental illness Maternal Grandmother Colon cancer Other Mental health problem Social History Housing: House Alcohol intake: never Patient Tobacco Use Status: Former Tobacco user e-Cigarette/Vaping Use: Never Used Second Hand Smoke Exposure: Yes service: No Current occupational status: employed 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 1. Little interest or pleasure in doing things: not at all 2. Feeling down, depressed, or hopeless: not at all 3. Trouble falling or staying asleep, or sleeping too much: not at all 4. Feeling tired or having little energy: not at all 5. Poor appetite or overeating: not at all 6. Feeling bad about yourself - or that you are a failure or have let yourself or your family down: not at all 7. Trouble concentrating on things, such as reading the newspaper or watching television: not at all 8. Moving or speaking so slowly that other people could have noticed. Or the opposite - being so fidgety or restless that you have been moving around a lot more than usual: not at all 9. Thoughts that you would be better off or of hurting yourself in some way: not at all Total score: 0 Depression Screening Interpretation: Negative (is on Rx) 83464 - PHQ-9 Billing: Yes Source: Developed by Drs. Eulogio Obregon, Marianela Smith, Alec Zapata and colleagues, with an educational sunshine from [employer]. Thrive Questionnaire Date Thrive assessed: 01/31/23 I am a: Patient What is your living situation today?: I have a steady place to live Within the past 12 months, did the food you bought not last and you didn't have the money to get more?: Never true Within the past 12 months, did you worry whether your food would run out before you got money to buy more?: Never true Do you have trouble paying for medicines?: No Do you have trouble getting transportation to medical appointments?: No Do you have trouble paying your heating and electricity bill?: No Do you have trouble taking care of your child, family member or friend?: No Do you have trouble with day-to-day activities such as bathing, preparing meals, shopping, managing finances, etc.?: No Are you currently unemployed and looking for a job?: No Are you interested in more education?: No Currently or been in a relationship where the following occur: no concerns reported AUDIT C Alcohol Use Questionnaire (AUDIT-C) 1. How often do you have a drink containing alcohol?: Never 3. How often do you have six or more drinks on one occasion?: Never Total Score: 0 Score Reviewed/Action Taken: Yes WALE-7 AMB Questionnaire WALE-7 Date WALE - 7 assessed: 01/31/23 Feeling nervous, anxious, or on edge: 1 = Several days Not being able to stop or control worryin = Several days Worrying too much about different things: 1 = Several days Trouble relaxin = Several days Being so restless that it is hard to sit still: 1 = Several days Becoming easily annoyed or irritable: 1 = Several days Feeling afraid as if something awful might happen: 1 = Several days Total WALE-7 score (0-4 normal; 5-9 mild; 10-14 moderate; 15-21 severe): 7 Source: Developed by Drs. Eulogio Obregon, Marianela Smith, Alec Zapata and colleagues, with an educational sunshine from [employer]. Review of Systems Const Denies chills, Reports fatigue, Denies fever(s) and Denies headache(s) ENT Denies dysphagia, Denies dizziness, Denies otalgia, Denies headache(s), Reports neck pain (chronic), Denies odynophagia and Denies sore throat Card Denies chest pain, Denies rapid heart rate, Denies irregular heart rhythm, Denies palpitations and Denies dyspnea Resp Denies chest congestion, Denies cough, Denies dyspnea and Denies wheezing GI Denies abdominal pain, Denies bloating, Reports constipation (chronic - mainly due to her pain meds), Denies dysphagia, Denies heartburn, Denies diarrhea, Denies nausea, Denies odynophagia and Denies vomiting Denies hematuria, Denies nocturia, Denies dysuria, Denies urinary incontinence and Denies urinary urgency Musc Reports back pain (chronic, over the lower back), Reports arthralgias (over the left shoulder and left wrist), Denies joint swelling, Denies muscle weakness, Reports neck pain (chronic) and Reports radiating pain into limb (left arm) Skin/Breast Denies rash Neuro Denies dizziness, Denies headache(s) and Denies paresthesias Endo Reports fatigue and Denies palpitations Jose/Lymph Denies easy bruising Aller/Immun Denies wheezing Physical exam (Primary Care) Vital Signs: Last Vital Signs Pulse 75 01/31/23 09:08 BP 124/80 01/31/23 09:08 Pulse Ox 99 01/31/23 09:08 Oxygen Delivery Method Room Air 01/31/23 09:08 BMI result Body Mass Index 19.4 Tobacco/Smoking Status: Tobacco use Status Tobacco use date assessed 01/31/23 01/31/23 09:10 Patient Tobacco Use Status Former Tobacco user 01/31/23 09:10 e-Cigarette/Vaping Use Never Used 01/31/23 09:10 PHQ-9: PHQ-9 Score PHQ-9: Total score 0 01/31/23 21:27 Depression Screening Interpretation: Negative (is on Rx) Thrive Assessment: Date of Thrive Assessment Date Thrive assessed 01/31/23 01/31/23 09:10 Currently or been in a relationship where the following occur: no concerns reported Const General: no acute distress and alert HENMT Ears: TM normal on the left and TM abnormal bulging on the right, erythematous on the right and perforated without discharge on the right Throat: Yes posterior oropharynx normal and Yes tonsils normal (no TP congestion) Neck Neck: Yes no lymphadenopathy and Yes supple Thyroid: Thyroid normal Resp Auscultation: clear to auscultation bilaterally, no rales and no wheezes Cardio Rate: regular rate Rhythm: regular rhythm Heart sounds: no murmurs GI Palpation (GI): Soft to palpation and nontender Auscultation: normal bowel sounds General: Yes no CVA tenderness Back/Spine/Pelvis Back: no CVA tenderness Cervical Spine: Cervical spine tenderness Thoracic/Lumbar Spine: paraspinal muscle tenderness bilaterally in the lower thoracic and lumbar spinal tenderness Sacroiliac joints: on the left tender to palpation Skin Rashes: no rashes Extrem General: Yes no clubbing, cyanosis or edema Left upper extremity: wrist ((+) tenderness) Results Reviewed Results Reviewed: Laboratory Tests 11/20/22 11/20/22 11/20/22 09:28 09:28 09:31 WBC 6.1 Hgb 12.4 Hct 37.3 Plt Count 312 ESR 4 Sodium 140 Potassium 4.7 Creatinine 0.76 Estimated GFR > 60 Fasting Glucose 97 Calcium 9.1 AST 13 ALT 16 Triglycerides 99 Cholesterol 231 LDL Cholesterol, Calc 157 HDL Cholesterol 55 25-OH Vitamin D Total 54.0 TSH Urine pH 5.5 Ur Specific Nelson 1.025 Urine Protein Negative Urine Glucose (UA) Negative Urine Blood Negative 11/20/22 09:31 WBC Hgb Hct Plt Count ESR Sodium Potassium Creatinine Estimated GFR Fasting Glucose Calcium AST ALT Triglycerides Cholesterol LDL Cholesterol, Calc HDL Cholesterol 25-OH Vitamin D Total TSH 0.46 Urine pH Ur Specific Nelson Urine Protein Urine Glucose (UA) Urine Blood Assessment and Plan Assessment & Plan (1) Pure hypercholesterolemia: Code(s): E78.00 - Pure hypercholesterolemia, unspecified Plan: Results of her labs done a couple of months ago reviewed and discussed with patient - advised that her cholesterol levels are still elevated Reinforced low cholesterol diet Patient has been tried on and has not been able to tolerate all of the available statins in the past, including pravastatin, simvastatin, atorvastatin and rosuvastatin; she has also been tried on ezetimibe and could not tolerate that as well Will refer her to cardiology for consultation / recommendations regarding further treatment for her high cholesterol levels (2) Migraine: Code(s): G43.909 - Migraine, unspecified, not intractable, without status migrainosus Qualifiers: Migraine type: unspecified Status migrainosus presence: without status migrainosus Intractability: not intractable Qualified Code(s): G43.909 - Migraine, unspecified, not intractable, without status migrainosus Plan: Reinforced avoidance of migraine triggers Continue Sumatriptan 50 mg PRN (3) Reflex sympathetic dystrophy of left upper extremity: Code(s): G90.512 - Complex regional pain syndrome I of left upper limb Plan: States that her chronic arm pain remains adequately controlled on her current Rx (4) Cervical spondylosis: Comment: S/P C5-C6 ACDF a couple of years ago - neck still feels sore frequently but left arm weakness has improved with surgery Code(s): M47.812 - Spondylosis without myelopathy or radiculopathy, cervical region Plan: Continue Cyclobenzaprine 10 mg 3 times a day as needed (5) Otitis media of right ear: Code(s): H66.91 - Otitis media, unspecified, right ear Qualifiers: Otitis media type: unspecified Qualified Code(s): H66.91 - Otitis media, unspecified, right ear Plan: Will start patient on Cefuroxime 500 mg BID x 10 days (6) Weight loss, unintentional: Code(s): R63.4 - Abnormal weight loss Plan: Will send her for some additional labs MANDI for further evaluation of her recent weight loss (7) Acute bilateral thoracic back pain: Code(s): M54.6 - Pain in thoracic spine Plan: Unclear etiology but advised that this is most likely due to some musculoskeletal strain involving the back muscles along her lower thoracic area Will send her for thoracic spine and chest x-rays for further evaluation but advised it is likely that other than some degenerative changes in the spine, there may not be any other pertinent findings seen (8) Osteoarthritis of spine with radiculopathy, lumbar region: Code(s): M47.26 - Other spondylosis with radiculopathy, lumbar region Plan: Reinforced activity and weight-lifting restrictions Could not tolerate physical therapy in the past; cortisone injections in the past at [facility] have helped temporarily Has also received epidural injections from [facility] for a few months a couple of years ago, with variable results Was seen by Dr. Darien Monroe at [facility] and also had a couple of SI joint injections that she states helped only temporarily as well Has been referred to and she is now seeing Dr. Salvador Hurt in [place]; underwent MIS fixation of left sacroiliac joint for stabilization on 02/28/22, then underwent physical therapy once cleared by surgeon States that the surgery helped her somewhat but we have not received any further updates on her condition via correspondence or OV notes from her doctors in [place] since her surgery Have instructed patient to remind them at her next follow-up appointment with them to continue sending us all of their follow-up notes and records to keep us updated of patient's condition Continue Hydrocodone-Acetaminophen 7.5-325 mg 1 tablet 4 times a day as needed for increased pain (9) Arthritis of carpometacarpal (CMC) joint of left thumb: Code(s): M18.12 - Unilateral primary osteoarthritis of first carpometacarpal joint, left hand Plan: MRI of the left wrist done last year revealed (+) severe OA changes in the wrist Follow up with orthopedics as scheduled (10) Gastritis: Code(s): K29.70 - Gastritis, unspecified, without bleeding Qualifiers: Gastritis type: unspecified gastritis Chronicity: unspecified Gastritis bleeding: without bleeding Qualified Code(s): K29.70 - Gastritis, unspecified, without bleeding Plan: Reinforced dietary restrictions Continue Omeprazole 20 mg QD (11) Allergic rhinitis: Code(s): J30.9 - Allergic rhinitis, unspecified Qualifiers: Allergic rhinitis trigger: unspecified Allergic rhinitis seasonality: unspecified Qualified Code(s): J30.9 - Allergic rhinitis, unspecified Plan: Continue Fluticasone 50 mcg nasal spray QD PRN (12) Anxiety: Code(s): F41.9 - Anxiety disorder, unspecified Plan: Continue Lorazepam 1 mg 4 times a day as needed (13) Depression: Code(s): F32.9 - Major depressive disorder, single episode, unspecified Qualifiers: Depression Type: major depressive disorder Major depression recurrence: recurrent Active/Remission status: currently active Major depression episode severity: unspecified Qualified Code(s): F33.9 - Major depressive disorder, recurrent, unspecified Plan: Continue Citalopram 20 mg once a day Follow-up with Psychiatry as scheduled Plan Follow up in 3 months Orders: Orders TSH reflex Free T4 01/31/23 G90.512 - Complex regional pain syndrome I of left upper limb, R63.4 - Abnormal weight loss Erythrocyte Sedimentation Rate 01/31/23 G90.512 - Complex regional pain syndrome I of left upper limb, R63.4 - Abnormal weight loss C Reactive Protein 01/31/23 G90.512 - Complex regional pain syndrome I of left upper limb, R63.4 - Abnormal weight loss XR thoracic spine 3V 01/31/23 M54.6 - Pain in thoracic spine XR chest 2V 01/31/23 M54.6 - Pain in thoracic spine, R63.4 - Abnormal weight loss Complete Blood Count Auto Diff 01/31/23 G90.512 - Complex regional pain syndrome I of left upper limb, R63.4 - Abnormal weight loss Comprehensive Met. Panel 01/31/23 G90.512 - Complex regional pain syndrome I of left upper limb, R63.4 - Abnormal weight loss UA CC w/rflx Micro + Cult 01/31/23 G90.512 - Complex regional pain syndrome I of left upper limb, R30.0 - Dysuria, R63.4 - Abnormal weight loss Referrals Cardiology Referral E78.00 - Pure hypercholesterolemia, unspecified Medications: New cefuroxime axetil 500 mg PO BID 10 days 20 tabs 0RF H66.91 - Otitis media, unspecified, right ear Coding Level of Care Code Est Pt Level 4 (24021) Diagnoses Pure hypercholesterolemia E78.00 Migraine without status migrainosus, not intractable, unspecified migraine type G43.909 Migraine type: unspecified Status migrainosus presence: without status migrainosus Intractability: not intractable Reflex sympathetic dystrophy of left upper extremity G90.512 Cervical spondylosis M47.812 Right otitis media, unspecified otitis media type H66.91 Otitis media type: unspecified Weight loss, unintentional R63.4 Acute bilateral thoracic back pain M54.6 Osteoarthritis of spine with radiculopathy, lumbar region M47.26 Arthritis of carpometacarpal (CMC) joint of left thumb M18.12 Gastritis without bleeding, unspecified chronicity, unspecified gastritis type K29.70 Gastritis type: unspecified gastritis Chronicity: unspecified Gastritis bleeding: without bleeding Allergic rhinitis, unspecified seasonality, unspecified trigger J30.9 Allergic rhinitis trigger: unspecified Allergic rhinitis seasonality: unspecified Anxiety F41.9 Episode of recurrent major depressive disorder, unspecified depression episode severity F33.9 Depression Type: major depressive disorder Major depression recurrence: recurrent Active/Remission status: currently active Major depression episode severity: unspecified
== END 2023-01-31 10:14 | disposition home or self-care (01) ==
PROVIDERS: PCP Internal Medicine; Visit Provider Internal Medicine
DX: E78.00 Pure hypercholesterolemia, unspecified (principal); G43.909 Migraine, unspecified, not intractable, without status migrainosus; G90.512 Complex regional pain syndrome I of left upper limb; F33.9 Major depressive disorder, recurrent, unspecified; M47.812 Spondylosis without myelopathy or radiculopathy, cervical region; H66.91 Otitis media, unspecified, right ear; R63.4 Abnormal weight loss; M54.6 Pain in thoracic spine; M47.26 Other spondylosis with radiculopathy, lumbar region; M18.12 Unilateral primary osteoarthritis of first carpometacarpal joint, left hand; K29.70 Gastritis, unspecified, without bleeding; J30.9 Allergic rhinitis, unspecified
CPT/HCPCS: 99214

== ENCOUNTER 2023-02-20 12:58 | Outpatient (REF) | payer OTHER, SELFPAY ==
--- NOTE | ~2023-02-20 | XR_ITS ---
EXAMINATION: XR CHEST, THORACIC SPINE CLINICAL INFORMATION: Pain in thoracic spine. COMPARISON: Chest 07/06/2014. TECHNIQUE: 3 views of the thoracic spine. PA and lateral views of the chest. FINDINGS: CHEST: There is no gross pneumothorax. Lungs are well inflated. Heart size is normal. No focal consolidation to suggest pneumonia. No pleural effusion. THORACIC SPINE: Mild multilevel degenerative changes in the thoracic spine. Minimal rightward curvature of the thoracic spine. Anterior plate and screws identified in the partially imaged lower cervical spine. No thoracic vertebral body compression fractures are identified. XR/XR thoracic spine 3V IMPRESSION: 1. No evidence of pneumonia. 2. Mild degenerative changes in the thoracic spine.
--- NOTE | ~2023-02-20 | XR_ITS ---
EXAMINATION: XR CHEST, THORACIC SPINE CLINICAL INFORMATION: Pain in thoracic spine. COMPARISON: Chest 07/06/2014. TECHNIQUE: 3 views of the thoracic spine. PA and lateral views of the chest. FINDINGS: CHEST: There is no gross pneumothorax. Lungs are well inflated. Heart size is normal. No focal consolidation to suggest pneumonia. No pleural effusion. THORACIC SPINE: Mild multilevel degenerative changes in the thoracic spine. Minimal rightward curvature of the thoracic spine. Anterior plate and screws identified in the partially imaged lower cervical spine. No thoracic vertebral body compression fractures are identified. XR/XR chest 2V IMPRESSION: 1. No evidence of pneumonia. 2. Mild degenerative changes in the thoracic spine.
[2023-02-20 13:20] LABS: MANUAL DIFF FLAG NO
[2023-02-20 13:55] LABS: Basophils Percent Auto 0.6 % (0-2); Eosinophils Absolute Auto 0.1 X10*3/uL (0.0-0.4); Eosinophils Percent Auto 1.6 % (0-4); Hematocrit 32.9 % (37.0-47.0); Hemoglobin 11.2 g/dl (12.0-16.0); Imm Gran Abs Auto 0.01 X10*3/uL (0.00-0.03); Imm Gran Pct Auto 0.2 % (0.0-0.4); Lymphocytes Absolute Auto 1.9 X10*3/uL (1.2-4.9); Lymphocytes Percent Auto 38.1 % (20-40); Mean Corpuscular Hemoglobin 31.2 pg (27.0-33.0); Mean Corpuscular Volume 91.6 fL (80.0-98.0); Mean Platelet Volume 10.7 fL (9.4-12.3); Monocytes Absolute Auto 0.3 X10*3/uL (0.1-1.2); Neutrophils Absolute Auto 2.7 x10*3/uL (2.0-8.3); Neutrophils Percent Auto 53.5 % (45-73); Platelet Count 311 X10*3/uL (160-400); Red Blood Count 3.59 X10*6/uL (4.20-5.50); Red Cell Distribution Width 12.5 % (11.0-16.0)
[2023-02-20 14:50] LABS: TSH reflex Free T4 0.91 uIU/mL (0.32-4.0)
[2023-02-20 14:53] LABS: Appearance Urine Clear; Color Urine Yellow; Glucose Urine UA Negative (Negative); Leukocyte Esterase Urine Negative (Negative); Nitrite Urine Negative (Negative); Specific Gravity - Urine 1.025 (1.005-1.025); Urine Blood Negative (Negative); Urine Ketones Negative (Negative); Urine Protein Negative (Neg-Trace)
[2023-02-20 14:53] LABS: Anion Gap 15 (12-20)
[2023-02-20 14:54] LABS: Erythrocyte Sedimentation Rate 4 MM/HR (0-20)
[2023-02-20 14:58] LABS: Alanine Aminotransferase 18 U/L (0-31); Albumin Level 4.6 g/dL (3.5-5.0); Alkaline Phosphatase 52 U/L (39-117); Aspartate Amino Transferase 19 U/L (5-31); Bilirubin Total 0.5 mg/dL (0.0-1.0); Blood Urea Nitrogen 14 mg/dL (9-16); C Reactive Protein < 0.04 mg/dL (< or = 0.50); Calcium 9.6 mg/dL (8.4-10.2); Carbon Dioxide 24 mmol/L (22-29); Chloride 105 mmol/L (96-108); Estimated Glomerular Filt Rate > 60; Glucose Random 143 mg/dL (60-115); Potassium 4.1 mmol/L (3.3-5.1); Sodium 140 mmol/L (135-145); Total Protein 6.7 g/dL (6.5-8.0)
== END 2023-02-20 12:59 | disposition home or self-care (01) ==
LOC: HO.LAB 12:58
PROVIDERS: PCP Internal Medicine; Visit Provider Internal Medicine
DX: M54.6 Pain in thoracic spine (principal); R63.4 Abnormal weight loss; G90.512 Complex regional pain syndrome I of left upper limb; R30.0 Dysuria
CPT/HCPCS: 36415; 71046; 72072; 80053; 81003; 84443; 85025; 85652; 86140

== ENCOUNTER 2023-05-23 13:05 | Outpatient (AMB) | payer OTHER, SELFPAY ==
[2023-05-23 13:27] VITALS: BP 140/50; PULSE 77; BMI 18.1
--- NOTE | 2023-05-23 13:27 | A.OFFVIS_ITS ---
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 Accompanied by: Self / Same As Patient Allergies amoxicillin [Amoxicillin] Allergy (Severe, Verified 01/31/23 09:56) RASH Sulfa (Sulfonamide Antibiotics) Allergy (Severe, Verified 01/31/23 09:56) RASH pravastatin Allergy (Unknown, Verified 01/31/23 09:56) myalgia pregabalin Allergy (Unknown, Verified 01/31/23 09:56) Muscle cramps atorvastatin Adverse Reaction (Unknown, Verified 01/31/23 09:56) leg pain and swelling ezetimibe [Zetia] Adverse Reaction (Unknown, Verified 01/31/23 09:56) joint pain oxycodone [Percocet] Adverse Reaction (Unknown, Verified 01/31/23 09:56) nausea, upset stomach, increased headaches rosuvastatin Adverse Reaction (Unknown, Verified 01/31/23 09:56) myalgia Medication List - Last Reconciled 05/23/23 by Maria Fernanda Bahena NP alirocumab (Praluent Pen) 75 mg subcut Q2W citalopram 20 mg PO DAILY 90 days hydrocodone-acetaminophen 7.5-325 mg 1 tab PO .4x a day PRN 28 days lorazepam 1 mg PO QID PRN 30 days omeprazole 20 mg PO DAILY sennosides (Senna Laxative) 8.6 mg PO BEDTIME sumatriptan succinate 100 mg PO as directed as needed. may repeat one more time if needed; 30 days zolpidem 10 mg PO BEDTIME PRN NS HPI HPI Comments History of Present Illness Details 53-year-old female presents today for a new patient visit for her cholesterol. She has a history of statin intolerance including (zetia, pravastatin, simvastatin, atorvastatin, rosuvastatin) which causes muscle pains, joint pains, and swelling. She reports no cardiac history for herself but her mother had heart disease/multiple heart attacks and her uncles also had heart attacks. She has had unintentional weight loss with poor appetite that she is working on with her primary doctor. She has been eating healthier foods when she can eat and avoiding fatty and fried foods without significant changes in her cholesterol. She has not been exercising due to uninteltional weight loss but she does not get chest pain or shortness of breath. [facility] Medical History (Updated 05/23/23 @ 14:25 by Maria Fernanda Bahena NP) Family history of myocardial infarction Overweight (BMI 25.0-29.9) Depression Anxiety Allergic rhinitis Gastritis Reflex sympathetic dystrophy of left upper extremity Cervical spondylosis Osteoarthritis of spine with radiculopathy, lumbar region Primary osteoarthritis of right shoulder Pure hypercholesterolemia Migraine Surgical History History of cervical discectomy S/P JOLENE-BSO (total abdominal hysterectomy and bilateral salpingo-oophorectomy) History of carpal tunnel release History of removal of cyst History of colonoscopy History of repair of rotator cuff Family History Father Prostate cancer Mother Lung cancer Hypertension CVD (cardiovascular disease) Diabetes Chronic mental illness Maternal Grandmother Colon cancer Other Mental health problem Social History Housing: House Alcohol intake: never Patient Tobacco Use Status: Former Tobacco user e-Cigarette/Vaping Use: Never Used Second Hand Smoke Exposure: Yes service: No Current occupational status: employed 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 Cognitive needs: No Hearing needs: No Vision needs: Yes Review of Systems Const Reports chills, Reports fatigue, Reports fever(s), Reports frequent falls, Reports weakness, Reports weight gain and Reports weight loss ENT Reports dizziness Card Reports chest pain, Reports leg edema, Reports lightheadedness, Reports palpitations, Reports dyspnea, Reports dyspnea on exertion and Reports orthopnea Resp Reports cough, Reports dyspnea and Reports dyspnea on exertion GI Reports bloating and Reports change in bowel habits Musc Reports muscle weakness, Reports numbness and Reports tingling Neuro Reports dizziness, Reports frequent falls, Reports numbness, Reports tingling and Reports weakness Endo Reports fatigue and Reports palpitations Physical Exam Vital Signs: BMI result Body Mass Index 18.1 Office Procedures EKG Details: EKG today Normal Sinus Rhythm. rate 77 bpm. QRS 92ms. QTc 432ms. [id number], Complete Assessment & Plan Assessment & Plan (1) Pure hypercholesterolemia: Code(s): E78.00 - Pure hypercholesterolemia, unspecified (2) Statin intolerance: Code(s): Z78.9 - Other specified health status (3) Family history of myocardial infarction: Code(s): Z82.49 - Family history of ischemic heart disease and other diseases of the circulatory system Plan Will obtain an echo due to close family history of heart disease and residential elevated cholesterol levels for baseline. Will try PCSK9 inhibitor to reduce cholesterol due to history of statin intolerance. Recheck fasting lipids in three months. Continue to eat heart healthy diet and work with primary doctor on the weight loss concern. Orders: Orders Basic Metabolic Panel Today E78.00 - Pure hypercholesterolemia, unspecified Lipid Panel Today E78.00 - Pure hypercholesterolemia, unspecified CA echo transthoracic complete Today E78.00 - Pure hypercholesterolemia, unspecified, Z82.49 - Family history of ischemic heart disease and other diseases of the circulatory system Medications: New alirocumab (Praluent Pen) inject into abdomen, thigh, or upper arm (deltoid muscle); rotate sites 75 mg subcut Q2W 2 mL 3RF Coding Level of Care Code New Pt Level 4 (83314) Diagnoses Pure hypercholesterolemia E78.00 Statin intolerance Z78.9 Family history of myocardial infarction Z82.49 CPT Codes EKG - CPT: 85893-[id number], Complete ([id number])
[2023-05-23 14:05] VITALS: BP 118/62
== END 2023-05-23 14:13 | disposition home or self-care (01) ==
PROVIDERS: PCP Internal Medicine; Visit Provider Nurse Practitioner
DX: E78.00 Pure hypercholesterolemia, unspecified (principal); Z78.9 Other specified health status; Z82.49 Family history of ischemic heart disease and other diseases of the circulatory system
CPT/HCPCS: 93010; 99204

== ENCOUNTER → 2023-05-23 13:05 | Outpatient (BNVA) | payer OTHER, SELFPAY | PROVIDERS: PCP Internal Medicine; Visit Provider Nurse Practitioner | DX: E78.00 Pure hypercholesterolemia, unspecified (principal); Z78.9 Other specified health status; Z82.49 Family history of ischemic heart disease and other diseases of the circulatory system | CPT/HCPCS: 93005; 99202 ==

== ENCOUNTER → 2023-06-26 08:04 | Outpatient (REF) | payer OTHER, SELFPAY ==
--- NOTE | 2023-06-26 08:07 | CA_ITS ---
Transthoracic Echocardiogram Patient (Last, First, Middle): Dulce Junior M Gender: Female Date of : 1970 Age: 53 Procedure Date: 06/26/2023 Procedure Type: Transthoracic Echocardiogram Location: OP Height: 167.64 cm Weight: 48.99 kg BSA: 1.54 m2 Heart Rate: bpm BP: 122 / 68 mmHg Body Designer: STEPHANIE Referring MD: Maria Fernanda Bahena NP Leather Roller: Adam Cornejo MD Symptoms: Z82.49 - Family history of ischemic heart disease and other diseases of ... Study Quality: Fair ECG Rhythm: Sinus Conclusions: - 1. Normal LV ejection fraction of 60 65% with grade 1 diastolic dysfunction 2. Mild mitral regurgitation 3. Normal RV systolic pressure 4. No gross pericardial effusion Findings Left Ventricle Normal left ventricular size, thickness, and systolic function. The visually estimated ejection fraction is between 60-65%. Spectral Doppler is indicative of an impaired relaxation filling pattern. E/E prime ratio is <8, consistent with normal filling pressures. Evidence suggests grade I (mild) diastolic dysfunction. Right Ventricle Normal right ventricular cavity size and systolic function. Atria Both atria are normal in size. There is no evidence of interatrial shunt. Aortic Valve Normal aortic valve structure and function. There is no aortic valve stenosis. There is no aortic valve regurgitation. Mitral Valve Normal mitral valve structure and function. There is mild mitral valve regurgitation. There is no mitral valve stenosis. Pulmonic Valve The pulmonic valve is likely normal. Tricuspid Valve Normal tricuspid valve structure. There is trace tricuspid valve regurgitation. The right ventricular systolic pressure is normal. The right ventricular systolic pressure is 23 mmHg. Normal right atrial pressure. There is no evidence of pulmonary hypertension. Great Vessels All visible segments of the aorta are normal in size. The pulmonary artery was not well visualized. Venous The inferior vena cava is normal in size and collapses greater than 50% with inspiration. Pericardium/Pleural There is no evidence of pericardial effusion. Prior Study Comparison No prior study available for comparison. Measurements 2D Linear Measurements IVSd: 0.75 0.6-0.9/0.6-1.0 cm LVIDd: 4.57 3.9-5.3/4.2-5.9 cm LVIDd Index: 2.97 2.4-3.2/2.2-3.1 cm/m2 LVIDs: 3.10 2.0-3.6 cm LVPWd: 0.92 0.7-1.1 cm Ao Root: 3.10 2.1-3.5 cm LA Diam: 3.50 2.7-3.8/3.0-4.0 cm LAIDs Index: 2.27 1.5-2.3 cm/m2 LV Mass: 152.58 67-162/88-224 g LV Mass Index: 99.08 43-95/49-115 g/m2 LVOT Diam: 2.10 3.0+(-)1.3 cm 2D Systolic Function EF 4C: 63.50 >55% EF 2C: 61.10 >55% EF BiP: 62.20 >55% Mitral Valve MV Pk E: 0.69 MV PK A: 0.82 MV Decel Time: 236.00 E/A: 0.80 E'Lateral: 13.60 E'Medial: 8.92 E/E' Med: 7.70 E/E' Lat: 5.10 PHT: 69.00 MVA PHT: 3.19 Decel [place]: 2.92 Aortic Valve AoV Pk Osvaldo: 1.58 AoV Mn Osvaldo: 0.96 AoV VTI: 0.40 AoV Pk Grad: 10.00 Aov Mn Grad: 5.00 CORINE Cont.VTI: 1.81 LVOT LVOT Pk [place]do: 0.94 LVOT Mn [place]do: 0.60 LVOT VTI: 0.21 LVOT Pk Grad: 4.00 LVOT Mn Grad: 2.00 LVOT Diam: 2.10 LVOT Area: 3.46 Diastolic Function MV Pk E: 0.69 MV Pk A: 0.82 E/A: 0.80 E'Medial: 8.92 E/E' Med: 7.70 E' Laterial: 13.60 E/E' Lat: 5.10 Right Ventricle TAPSE (mm): 24.00 TVS' Osvaldo: 11.00 Tricuspid Valve TR Pk Osvaldo: 2.21 TR Pk Grad: 20.00 RA Press: 3.00 RVSP: 23.00 Great Vessels Aorta Ao Root-2D: 3.10 2.0-3.7 cm Ao Asc: 2.90 2.1-3.4 cm Pulmonary Valve PV Pk Osvaldo: 0.90 Peak PV Grad: 3.00 Updated in Other Vendor System with Status of Final Adam Cornejo MD electronically signed on 06/27/2023 10:38:42 AM with status of Final
== END ==
LOC: HO.CARD 08:04
PROVIDERS: PCP Internal Medicine; Visit Provider Nurse Practitioner
DX: E78.00 Pure hypercholesterolemia, unspecified (principal); Z82.49 Family history of ischemic heart disease and other diseases of the circulatory system
CPT/HCPCS: 93306

== ENCOUNTER → 2023-06-26 08:07 | Outpatient (BNV) | payer OTHER, SELFPAY | PROVIDERS: PCP Internal Medicine; Visit Provider Internal Medicine Cardiovascular Disease | DX: I34.0 Nonrheumatic mitral (valve) insufficiency (principal) | CPT/HCPCS: 93306 ==

== ENCOUNTER 2023-07-15 14:56 | Outpatient (AMB) | payer OTHER, SELFPAY ==
[2023-07-15 15:19] VITALS: BP 122/58; PULSE 80; O2SAT 98; BMI 18.2
--- NOTE | 2023-07-15 15:19 | A.OFFPC_ITS ---
Vital Signs 07/15/23 15:19 Height 5 ft 6 in Weight 113 lb BMI 18.2 BP 122/58 L Blood Pressure Location Lt brachial Position Sitting Pulse 80 Pulse Source Pulse Oximeter Pulse Oximetry (%) 98 Oxygen Delivery Method Room Air Intake Visit Reasons: 3M. F/U- Lumbar DDD/Left SI Joint Dysfunction Intake Note: Secured Entrance Monitor Required: No Level Vial Sealer: Not Required per policy Accompanied by: Self / Same As Patient Allergies amoxicillin [Amoxicillin] Allergy (Severe, Verified 07/16/23 10:23) RASH Sulfa (Sulfonamide Antibiotics) Allergy (Severe, Verified 07/16/23 10:23) RASH pravastatin Allergy (Unknown, Verified 07/16/23 10:23) myalgia pregabalin Allergy (Unknown, Verified 07/16/23 10:23) Muscle cramps atorvastatin Adverse Reaction (Unknown, Verified 07/16/23 10:23) leg pain and swelling ezetimibe [Zetia] Adverse Reaction (Unknown, Verified 07/16/23 10:23) joint pain oxycodone [Percocet] Adverse Reaction (Unknown, Verified 07/16/23 10:23) nausea, upset stomach, increased headaches rosuvastatin Adverse Reaction (Unknown, Verified 07/16/23 10:23) myalgia Medication List - Last Reconciled 07/15/23 by Claude Steele MD alirocumab (Praluent Pen) 75 mg subcut Q2W citalopram 20 mg PO DAILY 90 days hydrocodone-acetaminophen 7.5-325 mg 1 tab PO .4x a day PRN 28 days lorazepam 1 mg PO QID PRN 30 days omeprazole 20 mg PO DAILY sennosides (Senna Laxative) 8.6 mg PO BEDTIME sumatriptan succinate 100 mg PO as directed as needed. may repeat one more time if needed; 30 days zolpidem 10 mg PO BEDTIME PRN NS Tobacco use date assessed: 07/15/23 Dental Screening Dental Screen Date: 07/15/23 Did you have a dental visit in the last 12 months?: Yes Did you have a dental problem in the last 6 months where you did not have access to dental care?: No Was dental information given to patient?: Patient has dentist HPI 3M. F/U- Lumbar DDD/Left SI Joint Dysfunction HPI Details Patient comes in today for her follow up visit She appears to have lost some more weight (7 pounds) since her last visit in January 2023 She weighed about 135 pounds back in October 2022 and is now down to about 117 pounds today Patient states that she is not really trying to lose any weight although she has not been eating well for a while now - feels like her stomach is full and bloated often but she denies any abdominal pain She also continues to experience increased pain (chronic) over her lower back and over her left SI joint area She underwent MIS fixation of the left SI joint for stabilization with Dr. Salvador Hurt back in February 2022 at the [facility] Relates that the surgery helped somewhat in the beginning but her pain seems to have gotten worse again after a few months and that her current pain meds help keep them at least somewhat manageable She denies any headaches or dizziness but she continues to complain of increased pain and discomfort in her right ear She denies any fever or sore throat Denies any chest pains, no SOB No nausea/vomiting and no change in bowel habits noted States that she had her follow up labs done in February 2023, a few weeks after her last visit, and would like to know how she did back then She is also requesting for a referral to OB-Superintendent Tests as it has been a few years now since she had her gynecology exam and pap smear done [facility] Medical History Family history of myocardial infarction Overweight (BMI 25.0-29.9) Depression Anxiety Allergic rhinitis Gastritis Reflex sympathetic dystrophy of left upper extremity Cervical spondylosis Osteoarthritis of spine with radiculopathy, lumbar region Primary osteoarthritis of right shoulder Pure hypercholesterolemia Migraine Surgical History History of cervical discectomy S/P JOLENE-BSO (total abdominal hysterectomy and bilateral salpingo-oophorectomy) History of carpal tunnel release History of removal of cyst History of colonoscopy History of repair of rotator cuff Family History Father Prostate cancer Mother Lung cancer Hypertension CVD (cardiovascular disease) Diabetes Chronic mental illness Maternal Grandmother Colon cancer Other Mental health problem Social History Housing: House Alcohol intake: never Patient Tobacco Use Status: Former Tobacco user e-Cigarette/Vaping Use: Never Used Second Hand Smoke Exposure: Yes service: No Current occupational status: employed 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 1. Little interest or pleasure in doing things: several days 2. Feeling down, depressed, or hopeless: several days 3. Trouble falling or staying asleep, or sleeping too much: nearly every day 4. Feeling tired or having little energy: several days 5. Poor appetite or overeating: nearly every day 6. Feeling bad about yourself - or that you are a failure or have let yourself or your family down: several days 7. Trouble concentrating on things, such as reading the newspaper or watching te levision: nearly every day 8. Moving or speaking so slowly that other people could have noticed. Or the opposite - being so fidgety or restless that you have been moving around a lot more than usual: more than half the days 9. Thoughts that you would be better off or of hurting yourself in some way: not at all Total score: 15 Depression Screening Interpretation: Positive Depression Screening Follow-up: Existing condition and In treatment Depression Screening Done: Yes [id number] - PHQ-9 Billing: Yes Source: Developed by Drs. Eulogio Obregon, Marianela Smith, Alec Zapata and colleagues, with an educational sunshine from [employer]. Thrive Questionnaire Date Thrive assessed: 07/15/23 I am a: Patient What is your living situation today?: I have a steady place to live Within the past 12 months, did the food you bought not last and you didn't have the money to get more?: Never true Within the past 12 months, did you worry whether your food would run out before you got money to buy more?: Never true Do you have trouble paying for medicines?: No Do you have trouble getting transportation to medical appointments?: No Do you have trouble paying your heating and electricity bill?: No Do you have trouble taking care of your child, family member or friend?: No Do you have trouble with day-to-day activities such as bathing, preparing meals, shopping, managing finances, etc.?: No Are you currently unemployed and looking for a job?: No Are you interested in more education?: No Please select the resources that you would like help with: None Currently or been in a relationship where the following occur: no concerns reported THRIVE Score: 0 AUDIT C Alcohol Use Questionnaire (AUDIT-C) 1. How often do you have a drink containing alcohol?: Never 3. How often do you have six or more drinks on one occasion?: Never Total Score: 0 Score Reviewed/Action Taken: Yes WALE-7 AMB Questionnaire WALE-7 Date WALE - 7 assessed: 07/15/23 Feeling nervous, anxious, or on edge: 1 = Several days Not being able to stop or control worryin = Nearly every day Worrying too much about different things: 3 = Nearly every day Trouble relaxin = More than half the days Being so restless that it is hard to sit still: 2 = More than half the days Becoming easily annoyed or irritable: 3 = Nearly every day Feeling afraid as if something awful might happen: 3 = Nearly every day Total WALE-7 score (0-4 normal; 5-9 mild; 10-14 moderate; 15-21 severe): 17 Source: Developed by Drs. Eulogio Obregon, Marianela Smith, Alec Zapata and colleagues, with an educational sunshine from [employer]. Review of Systems Const Denies chills, Reports fatigue, Denies fever(s), Denies headache(s), Reports poor appetite and Reports weight loss ENT Denies dysphagia, Denies dizziness, Reports otalgia (in the right ear), Denies headache(s), Reports neck pain (chronic), Denies odynophagia and Denies sore throat Card Denies chest pain, Denies rapid heart rate, Denies irregular heart rhythm, Denies palpitations and Denies dyspnea Resp Denies chest congestion, Denies cough, Denies dyspnea and Denies wheezing GI Denies abdominal pain, Reports bloating, Reports constipation (chronic - mainly due to her pain meds), Denies dysphagia, Reports early satiety, Denies heartburn, Denies diarrhea, Denies nausea, Denies odynophagia and Denies vomiting Denies hematuria, Denies nocturia, Denies dysuria, Denies urinary incontinence and Denies urinary urgency Musc Reports back pain (chronic, over the lower back), Reports arthralgias (over the left shoulder and left wrist), Denies joint swelling, Denies muscle weakness, Reports neck pain (chronic) and Reports radiating pain into limb (left arm) Skin/Breast Denies rash Neuro Denies dizziness, Denies headache(s) and Denies paresthesias Endo Reports fatigue and Denies palpitations Jose/Lymph Denies easy bruising Aller/Immun Denies wheezing Physical exam (Primary Care) Vital Signs: Last Vital Signs Pulse 80 07/15/23 15:19 BP 122/58 L 07/15/23 15:19 Pulse Ox 98 07/15/23 15:19 Oxygen Delivery Method Room Air 07/15/23 15:19 BMI result Body Mass Index 18.2 Tobacco/Smoking Status: Tobacco use Status Tobacco use date assessed 07/15/23 07/15/23 15:20 Patient Tobacco Use Status Former Tobacco user 07/15/23 15:20 e-Cigarette/Vaping Use Never Used 07/15/23 15:20 PHQ-9: PHQ-9 Score PHQ-9: Total score 15 07/25/23 18:19 Depression Screening Interpretation: Positive Depression Screening Follow-up: Existing condition and In treatment Thrive Assessment: Date of Thrive Assessment Date Thrive assessed 07/15/23 07/15/23 15:20 Currently or been in a relationship where the following occur: no concerns reported Const General: no acute distress and alert HENMT Ears: TM normal on the left and TM abnormal bulging, erythematous (mild) on the right and perforated without discharge on the right; not with effusion Throat: Yes posterior oropharynx normal and Yes tonsils normal (no TP congestion) Neck Neck: Yes no lymphadenopathy and Yes supple Thyroid: Thyroid normal Resp Auscultation: clear to auscultation bilaterally, no rales and no wheezes Cardio Rate: regular rate Rhythm: regular rhythm Heart sounds: no murmurs GI Palpation (GI): Soft to palpation and nontender Auscultation: normal bowel sounds General: Yes no CVA tenderness Back/Spine/Pelvis Back: no CVA tenderness Cervical Spine: Cervical spine tenderness Thoracic/Lumbar Spine: paraspinal muscle tenderness bilaterally in the lower thoracic and lumbar spinal tenderness Sacroiliac joints: on the left tender to palpation Skin Rashes: no rashes Extrem General: Yes no clubbing, cyanosis or edema Left upper extremity: wrist ((+) tenderness) Results Reviewed Results Reviewed: Laboratory Tests 11/20/22 02/20/23 02/20/23 09:31 13:13 13:13 WBC Hgb Hct Plt Count ESR Sodium Potassium Creatinine Estimated GFR Random Glucose Calcium AST ALT 25-OH Vitamin D Total 54.0 TSH Ur Specific [place] 1.025 Urine Protein Negative Urine Glucose (UA) Negative Urine Blood Negative 02/20/23 02/20/23 02/20/23 13:17 13:17 13:17 WBC 5.0 Hgb 11.2 L Hct 32.9 L Plt Count 311 ESR 4 Sodium 140 Potassium 4.1 Creatinine 0.74 Estimated GFR > 60 Random Glucose 143 H Calcium 9.6 AST 19 ALT 18 25-OH Vitamin D Total TSH 0.91 Ur Specific [place] Urine Protein Urine Glucose (UA) Urine Blood Assessment and Plan Assessment & Plan (1) Early satiety: Code(s): R68.81 - Early satiety Plan: Will send patient for an upper GI series MANDI for further evaluation Will also refer her to GI for further evaluation and management (2) Weight loss, unintentional: Code(s): R63.4 - Abnormal weight loss Plan: Will send her for some additional labs MANDI for further evaluation of her recent weight loss Will also refer her to GI for further evaluation and management (3) Gastritis: Code(s): K29.70 - Gastritis, unspecified, without bleeding Qualifiers: Chronicity: unspecified Gastritis bleeding: without bleeding Gastritis type: unspecified gastritis Qualified Code(s): K29.70 - Gastritis, unspecified, without bleeding Plan: Reinforced dietary restrictions Continue Omeprazole 20 mg QD for now but suspect that her gastritis may also be contributing to her recent weight loss and poor oral intake She is being referred to GI for further evaluation and management (4) Pure hypercholesterolemia: Code(s): E78.00 - Pure hypercholesterolemia, unspecified Plan: Results of her labs done back in February 2023 reviewed and discussed with patient but she is advised that her labs back then were non-fasting and did not include her lipid profile She has not had her cholesterol levels checked since November 2022 Reinforced low cholesterol diet Patient has been tried on and has not been able to tolerate all of the available statins in the past, including pravastatin, simvastatin, atorvastatin and rosuvastatin; she has also been tried on ezetimibe and could not tolerate that as well She has been referred to cardiology for consultation / recommendations regarding further treatment for her high cholesterol levels (5) Migraine: Code(s): G43.909 - Migraine, unspecified, not intractable, without status migrainosus Qualifiers: Intractability: not intractable Migraine type: unspecified Status migrainosus presence: without status migrainosus Qualified Code(s): G43.909 - Migraine, unspecified, not intractable, without status migrainosus Plan: Reinforced avoidance of migraine triggers Continue Sumatriptan 50 mg PRN (6) Reflex sympathetic dystrophy of left upper extremity: Code(s): G90.512 - Complex regional pain syndrome I of left upper limb Plan: States that her chronic arm pain remains adequately controlled on her current Rx (7) Cervical spondylosis: Comment: S/P C5-C6 ACDF a couple of years ago - neck still feels sore frequently but left arm weakness has improved with surgery Code(s): M47.812 - Spondylosis without myelopathy or radiculopathy, cervical region Plan: Continue Cyclobenzaprine 10 mg 3 times a day as needed (8) Osteoarthritis of spine with radiculopathy, lumbar region: Code(s): M47.26 - Other spondylosis with radiculopathy, lumbar region Plan: Reinforced activity and weight-lifting restrictions Could not tolerate physical therapy in the past; cortisone injections in the past at [facility] have helped temporarily Has also received epidural injections from [facility] for a few months a couple of years ago, with variable results She was seen by Dr. Darien Monroe at [facility] in the past and also had a couple of SI joint injections that she states helped only temporarily She was then referred to Dr. Salvador Hurt in [place] and underwent MIS fixation of left sacroiliac joint for stabilization on 02/28/22, followed by physical therapy when she was cleared by her surgeon for rehab States that the surgery helped her somewhat but we have not received any further updates on her condition via correspondence or OV notes from her doctors in [place] since her surgery Reports that her pain seems to have gotten worse again a few months after her surgery and her symptoms have persisted since Continue Hydrocodone-Acetaminophen 7.5-325 mg 1 tablet 4 times a day as needed for increased pain (9) Arthritis of carpometacarpal (CMC) joint of left thumb: Code(s): M18.12 - Unilateral primary osteoarthritis of first carpometacarpal joint, left hand Plan: MRI of the left wrist done last year revealed (+) severe OA changes in the wrist Follow up with orthopedics as scheduled (10) Allergic rhinitis: Code(s): J30.9 - Allergic rhinitis, unspecified Qualifiers: Allergic rhinitis seasonality: unspecified Allergic rhinitis trigger: unspecified Qualified Code(s): J30.9 - Allergic rhinitis, unspecified Plan: Continue Fluticasone 50 mcg nasal spray QD PRN (11) Otitis media of right ear: Code(s): H66.91 - Otitis media, unspecified, right ear Qualifiers: Otitis media type: unspecified Qualified Code(s): H66.91 - Otitis media, unspecified, right ear Plan: Will start patient empirically on Doxycycline 100 mg BID x 10 days (12) Anxiety: Code(s): F41.9 - Anxiety disorder, unspecified Plan: Continue Lorazepam 1 mg 4 times a day as needed (13) Depression: Code(s): F32.9 - Major depressive disorder, single episode, unspecified Qualifiers: Active/Remission status: currently active Depression Type: major depressive disorder Major depression episode severity: unspecified Major depression recurrence: recurrent Qualified Code(s): F33.9 - Major depressive disorder, recurrent, unspecified Plan: Continue Citalopram 20 mg once a day Follow-up with Psychiatry as scheduled (14) Cervical cancer screening: Code(s): Z12.4 - Encounter for screening for malignant neoplasm of cervix Plan: Per request, will refer her to gynecology for her annual pap smear and gynecology exam, as it has been a few years now since she had her gynecology ex am done Plan Follow up in 3 months Orders: Orders FL upper GI small bowel 07/15/23 R68.81 - Early satiety, R13.10 - Dysphagia, unspecified, R63.4 - Abnormal weight loss Complete Blood Count Auto Diff 07/15/23 D64.9 - Anemia, unspecified Comprehensive [place]. Panel Fast 07/15/23 E78.00 - Pure hypercholesterolemia, unspecified TSH reflex Free T4 07/15/23 E78.00 - Pure hypercholesterolemia, unspecified C Reactive Protein 07/15/23 R68.81 - Early satiety, R63.4 - Abnormal weight loss Lipid Panel 07/15/23 E78.00 - Pure hypercholesterolemia, unspecified UA CC w/rflx Micro + Cult 07/15/23 R30.0 - Dysuria Vitamin D 25-OH Total 07/15/23 E55.9 - Vitamin D deficiency, unspecified Vitamin B12 and Folate 07/15/23 E53.8 - Deficiency of other specified B group vitamins Erythrocyte Sedimentation Rate 07/15/23 R68.81 - Early satiety, R63.4 - Abnormal weight loss Referrals Gastroenterology Referral R68.81 - Early satiety, R13.10 - Dysphagia, unspecif ied, R63.4 - Abnormal weight loss HOUSING INSPECTOR Referral Z12.4 - Encounter for screening for malignant neoplasm of cervix Medications: New doxycycline monohydrate 100 mg PO BID 20 caps 0RF 10 days Coding Level of Care Code Est Pt Level 4 (19615) Diagnoses Early satiety R68.81 Weight loss, unintentional R63.4 Gastritis without bleeding, unspecified chronicity, unspecified gastritis type K29.70 Chronicity: unspecified Gastritis bleeding: without bleeding Gastritis type: unspecified gastritis Pure hypercholesterolemia E78.00 Migraine without status migrainosus, not intractable, unspecified migraine type G43.909 Intractability: not intractable Migraine type: unspecified Status migrainosus presence: without status migrainosus Reflex sympathetic dystrophy of left upper extremity G90.512 Cervical spondylosis M47.812 Osteoarthritis of spine with radiculopathy, lumbar region M47.26 Arthritis of carpometacarpal (CMC) joint of left thumb M18.12 Allergic rhinitis, unspecified seasonality, unspecified trigger J30.9 Allergic rhinitis seasonality: unspecified Allergic rhinitis trigger: unspecified Right otitis media, unspecified otitis media type H66.91 Otitis media type: unspecified Anxiety F41.9 Episode of recurrent major depressive disorder, unspecified depression episode severity F33.9 Active/Remission status: currently active Depression Type: major depressive disorder Major depression episode severity: unspecified Major depression recurrence: recurrent Cervical cancer screening Z12.4
== END 2023-07-15 16:30 | disposition home or self-care (01) ==
PROVIDERS: PCP Internal Medicine; Visit Provider Internal Medicine
DX: R68.81 Early satiety (principal); F33.9 Major depressive disorder, recurrent, unspecified; R63.4 Abnormal weight loss; K29.70 Gastritis, unspecified, without bleeding; E78.00 Pure hypercholesterolemia, unspecified; G43.909 Migraine, unspecified, not intractable, without status migrainosus; G90.512 Complex regional pain syndrome I of left upper limb; M47.812 Spondylosis without myelopathy or radiculopathy, cervical region; M47.26 Other spondylosis with radiculopathy, lumbar region; M18.12 Unilateral primary osteoarthritis of first carpometacarpal joint, left hand; J30.9 Allergic rhinitis, unspecified; H66.91 Otitis media, unspecified, right ear
CPT/HCPCS: 99214

== ENCOUNTER 2023-07-16 10:09 | Outpatient (AMB) | payer OTHER, SELFPAY ==
[2023-07-16 10:15] VITALS: BMI 18.2
--- NOTE | 2023-07-16 10:15 | MHC.OFFVIS ---
Intake Vital Signs 07/16/23 10:15 Height 5 ft 6 in Weight 113 lb BMI 18.2 Intake Visit Reasons: OV-Skiers thumb, left Intake Note: Dulce 53 yr old female presents today for her follow up visit for her Left thumb ulnar collateral ligament sprain/ skiers thumb, from an injury DOI: 11/25/21. Patient reports she is still limited with her thumb ROM. She is experiencing a sharp pain in her MCP with grabbing and gripping. Also she is on pain medication due to a recent back surgery and in ABX for an current ear infection. Allergies amoxicillin [Amoxicillin] Allergy (Severe, Verified 07/16/23 10:23) RASH Sulfa (Sulfonamide Antibiotics) Allergy (Severe, Verified 07/16/23 10:23) RASH pravastatin Allergy (Unknown, Verified 07/16/23 10:23) myalgia pregabalin Allergy (Unknown, Verified 07/16/23 10:23) Muscle cramps atorvastatin Adverse Reaction (Unknown, Verified 07/16/23 10:23) leg pain and swelling ezetimibe [Zetia] Adverse Reaction (Unknown, Verified 07/16/23 10:23) joint pain oxycodone [Percocet] Adverse Reaction (Unknown, Verified 07/16/23 10:23) nausea, upset stomach, increased headaches rosuvastatin Adverse Reaction (Unknown, Verified 07/16/23 10:23) myalgia HPI OV-Skiers thumb, left HPI Details Dulce is a 53 year old right hand dominant woman returning with complaints of left thumb pain & stiffness. She has a hx of a left UCL sprain, from an injury on 11/25/21, as well as severe basal joint OA. She complains of sharp pain at the base of her thumb, worse with pinching & gripping activities. She also complains of some stiffness in her thumb and says this causes her pain when trying to bend it. She denies any locking or catching. She says she is currently on Alexandria due to a back surgery ~1 year ago, and is on Abx for a right ear infection. She also reports having a torn RTC & biceps in 2020. [facility] Medical History Family history of myocardial infarction Overweight (BMI 25.0-29.9) Depression Anxiety Allergic rhinitis Gastritis Reflex sympathetic dystrophy of left upper extremity Cervical spondylosis Osteoarthritis of spine with radiculopathy, lumbar region Primary osteoarthritis of right shoulder Pure hypercholesterolemia Migraine Surgical History History of cervical discectomy S/P JOLENE-BSO (total abdominal hysterectomy and bilateral salpingo-oophorectomy) History of carpal tunnel release History of removal of cyst History of colonoscopy History of repair of rotator cuff Family History Father Prostate cancer Mother Lung cancer Hypertension CVD (cardiovascular disease) Diabetes Chronic mental illness Maternal Grandmother Colon cancer Other Mental health problem Social History Housing: House Alcohol intake: never Patient Tobacco Use Status: Former Tobacco user e-Cigarette/Vaping Use: Never Used Second Hand Smoke Exposure: Yes service: No Current occupational status: employed 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 Cognitive needs: No Hearing needs: No Vision needs: Yes Review of Systems Const All systems reviewed & are unremarkable except as noted in HPI and below Physical Exam Vital Signs: BMI result Body Mass Index 18.2 Const General: cooperative, healthy appearing and no acute distress Orientation/consciousness: patient oriented x3 Neuro General: patient oriented x3 Extrem Other: Evaluation of Left Upper Extremity: The patient is alert, oriented, and in no acute distress Neuro: Median, Ulnar, Radial nerves motor and sensory intact and sensation is normal to the tips of all digits Vascular: Cap refill brisk ROM: Can bring fingers closed to a fist and back out to full extension. She continues to have some generalized stiffness in her wrist and thumb Using a 0-10 pain scale: 5/10 Basal joint tenderness + Shoulder sign 4 MCP joint tenderness MCP joint stable on exam 3/10 a1 abel tenderness No locking or catching Not tender over the distal radius, DRUJ, or distal Ulna DRUJ is stable No snuffbox tenderness and scaphoid tubercle tenderness Radiographs: 3 views of the left hand, with attention to the thumb, plus a scaphoid view, from 12/27/21 were reviewed by me today in clinic. They show end-stage BJA with near complete loiss of joint space, posteophyte formation, subchondral sclerosis Psych Appearance: grossly normal Affect: normal affect Attitude: cooperative Office Procedures Fracture Care Details: No fracture, injection Fracture Billing Code: Fracture Billing Code Assessment & Plan Assessment & Plan (1) Arthritis of carpometacarpal (CMC) joint of left thumb: Code(s): M18.12 - Unilateral primary osteoarthritis of first carpometacarpal joint, left hand Plan Assessment & Plan: 1. Left Basal joint Arthritis This appears to be her chief complaint today. I educated her about this condition, and about activity modification I discussed operative and non-operative treatment options. The patient would like to proceed with an injection I discussed activity modification, she should limit or avoid any heavy or repetitive pinching or gripping activities She was fitted for a comfort cool brace to wear with daily activity Injection #1 : The risks and benefits of a steroid injection including but not limited to risk of damage to blood vessels, nerve, tendon, infection, skin bleaching, persistent or worsening pain, and failure to improve symptoms were discussed with the patient and they wish to proceed with the steroid injection. Once consent was obtained the skin over the dorsum of the Left basal joint was sterilely prepped. The joint was then injected with a combination of 1 mL of (40 mg/ml} Depo-Medrol and 1% plain Lidocaine. The patient appears to have tolerated the procedure well and with no complications. She had good early relief before leaving clinic today. She knows that they may not have another steroid injection into this joint for least 4 months. Please note that she is taking Alexandria 7.5/325 daily for chronic back pain following back surgery a year ago 2. Left thumb UCL tear DOI: 11/25/21 Treated non operatively with casting. The went on to heal well with good MCP stability. She complains about some mild stiffness. I did offer OT hand therapy, but she would rather just continue to work on range of motion exercises at home. Scribed for Kaylynn Thomas MD by Travis Roy, medical record administrator, on 07/16/23 at 10:37 AM, EST. Coding Level of Care Code Est Pt Level 3 (96373) Diagnoses Arthritis of carpometacarpal (CMC) joint of left thumb M18.12 CPT Codes Fracture Care - Fracture Billing Code: Fracture Billing Code ([id number])
== END 2023-07-16 10:55 | disposition home or self-care (01) ==
PROVIDERS: PCP Internal Medicine; Visit Provider Orthopaedic Surgery
DX: M18.12 Unilateral primary osteoarthritis of first carpometacarpal joint, left hand (principal)
CPT/HCPCS: 20600; 99213

== ENCOUNTER → 2023-07-16 10:09 | Outpatient (BNVA) | payer OTHER, SELFPAY | PROVIDERS: PCP Internal Medicine; Visit Provider Orthopaedic Surgery | DX: M18.12 Unilateral primary osteoarthritis of first carpometacarpal joint, left hand (principal) | CPT/HCPCS: 20600; 99212; J1020 ==

== ENCOUNTER 2023-09-09 08:15 | Outpatient (REF) | payer MEDICARE, MEDICAID, SELFPAY ==
[2023-09-09 08:30] LABS: MANUAL DIFF FLAG NO
[2023-09-09 09:05] LABS: Basophils Absolute Auto 0.1 X10*3/uL (0.0-0.2); Eosinophils Absolute Auto 0.1 X10*3/uL (0.0-0.4); Eosinophils Percent Auto 2.3 % (0-4); Hematocrit 36.8 % (37.0-47.0); Hemoglobin 12.2 g/dl (12.0-16.0); Imm Gran Abs Auto 0.01 X10*3/uL (0.00-0.03); Imm Gran Pct Auto 0.2 % (0.0-0.4); Lymphocytes Absolute Auto 1.7 X10*3/uL (1.2-4.9); Lymphocytes Percent Auto 32.6 % (20-40); Mean Corpuscular HGB Conc 33.2 g/dl (31.0-35.0); Mean Corpuscular Hemoglobin 31.9 pg (27.0-33.0); Mean Corpuscular Volume 96.3 fL (80.0-98.0); Monocytes Absolute Auto 0.3 X10*3/uL (0.1-1.2); Monocytes Percent Auto 6.6 % (2-11); Neutrophils Percent Auto 57.3 % (45-73); Platelet Count 279 X10*3/uL (160-400); Red Blood Count 3.82 X10*6/uL (4.20-5.50); Red Cell Distribution Width 12.2 % (11.0-16.0); White Blood Count 5.2 X10*3/uL (4.8-10.8)
[2023-09-09 09:15] LABS: Appearance Urine Clear; Color Urine Yellow; Glucose Urine UA Negative (Negative); Leukocyte Esterase Urine Negative (Negative); Nitrite Urine Negative (Negative); Specific Gravity - Urine 1.025 (1.005-1.025); Urine Blood Negative (Negative); Urine Ketones Negative (Negative); Urine Protein Negative (Neg-Trace)
[2023-09-09 09:41] LABS: Erythrocyte Sedimentation Rate 3 MM/HR (0-20)
[2023-09-09 09:58] LABS: Alanine Aminotransferase 30 U/L (0-31); Albumin Level 4.7 g/dL (3.5-5.0); Alkaline Phosphatase 45 U/L (39-117); Anion Gap 15 (12-20); Aspartate Amino Transferase 21 U/L (5-31); Bilirubin Total 0.4 mg/dL (0.0-1.0); Blood Urea Nitrogen 23 mg/dL (9-16); C Reactive Protein < 0.04 mg/dL (< or = 0.50); Calcium 9.6 mg/dL (8.4-10.2); Carbon Dioxide 27 mmol/L (22-29); Chloride 106 mmol/L (96-108); Cholesterol 147 mg/dL (<200); Estimated Glomerular Filt Rate > 60; Glucose Fasting 90 mg/dL (60-99); HDL Cholesterol 68 mg/dL (>40); LDL Cholesterol Calculated 58 mg/dL (<100); Sodium 143 mmol/L (135-145); Triglycerides 105 mg/dL (<150)
[2023-09-09 10:10] LABS: TSH reflex Free T4 1.08 uIU/mL (0.32-4.0)
[2023-09-09 10:17] LABS: Folate 15.6 ng/mL (> or = 4.0); Vitamin B12 1336 pg/mL (200-900)
== END 2023-09-09 08:16 | disposition home or self-care (01) ==
LOC: HO.LAB 08:15
PROVIDERS: PCP Internal Medicine; Visit Provider Internal Medicine
DX: E78.00 Pure hypercholesterolemia, unspecified (principal); R68.81 Early satiety; R63.4 Abnormal weight loss; R30.0 Dysuria; E53.8 Deficiency of other specified B group vitamins; D64.9 Anemia, unspecified; E55.9 Vitamin D deficiency, unspecified
CPT/HCPCS: 36415; 80053; 80061; 81003; 82306; 82607; 82746; 84443; 85025; 85652; 86140

== ENCOUNTER 2023-09-12 07:49 | Outpatient (REF) | payer MEDICARE, MEDICAID, SELFPAY ==
--- NOTE | ~2023-09-12 | FL_ITS ---
EXAMINATION: XR FLUOROSCOPY UPPER GI WITH AIR, WITH SMALL BOWEL FOLLOW-THROUGH. CLINICAL INFORMATION: Abdominal pain. Weight loss COMPARISON: None TECHNIQUE: Fluoroscopic air contrast upper GI examination was performed utilizing standard techniques with thin and thick barium and effervescent granules. Numerous spot images were obtained. FINDINGS: Status post ACDF C5-C7. No obvious complication. There is fusion of the left SI joint. Dual and single contrast images of the esophagus demonstrate a normal caliber, and contour. There is felinization of the mid and distal esophageal mucosa. No masses or ulcerations are identified. There is mild narrowing of the GE junction. Esophageal peristalsis is mildly disorganized. No evidence of hiatus hernia identified. No significant gastroesophageal reflux was seen during the course of the examination and on reflux views. Dual contrast and single contrast images of the stomach demonstrated a normal contour. The gastric rugal folds have a thickened appearance. No masses or ulcerations are seen Contrast freely passed into the gastric antrum and duodenal bulb without delay. Single and air-contrast images of the duodenal bulb demonstrate no abnormality. The duodenal sweep has a normal appearance, course, and mucosal fold appearance. No malrotation. The imaged small bowel has a normal fold pattern and caliber. No strictures or masses are present. There is rapid transit of the barium column, with contrast observed in the left colon at 30 minutes. The ileocecal valve could not be visualized. FLUOROSCOPY TIME: 4 minutes 39 seconds Number of Spot Images: 12 Number of Cine: 12 DOSE AREA PRODUCT: 2328 uGy-m2 (microgray-meter squared) FL/FL upper GI small bowel IMPRESSION: 1. Felinization of the mid and distal esophageal mucosa. This is a benign finding that is associated with gastroesophageal reflux. While gastroesophageal reflux was not seen during this examination, suspect at least moderate reflux. 2. Mild narrowing of the GE junction that may represent achalasia. A benign stricture cannot be ruled out. Recommend correlation with EGD. 3. Thickened gastric rugal folds that likely represents gastritis. 4. Rapid transit of the barium column. Contrast is seen in the left colon after 30 minutes. The differential is broad. This procedure was performed by Eugene Collins PA-C, and supervised by Dr. Bahena
== END 2023-09-12 07:50 | disposition home or self-care (01) ==
LOC: HO.XRAY 07:49
PROVIDERS: PCP Internal Medicine; Visit Provider Internal Medicine
DX: R13.10 Dysphagia, unspecified (principal); R68.81 Early satiety; R63.4 Abnormal weight loss
CPT/HCPCS: 74240; 74248

== ENCOUNTER → 2023-09-12 07:50 | Outpatient (BNV) | payer MEDICARE, MEDICAID, SELFPAY | PROVIDERS: PCP Internal Medicine; Visit Provider Physician Assistant Surgical | DX: R63.4 Abnormal weight loss (principal); R10.9 Unspecified abdominal pain | CPT/HCPCS: 74246; 74248 ==

== ENCOUNTER 2023-12-26 12:06 | Outpatient (REF) | payer MEDICARE, MEDICAID, SELFPAY ==
[2023-12-26 15:02] LABS: C Reactive Protein < 0.04 mg/dL (< or = 0.50)
[2023-12-26 15:20] LABS: Erythrocyte Sedimentation Rate 7 MM/HR (0-20)
[2024-01-01 10:57] LABS: Cyclic Citrullinated Peptide <16 UNITS
[2024-01-01 20:04] LABS: Anti Nuclear Antibody Screen NEGATIVE (NEGATIVE)
[2024-01-02 10:38] LABS: ANA Pattern 3 TPN
== END 2023-12-26 12:07 | disposition home or self-care (01) ==
LOC: HO.LAB 12:06
PROVIDERS: PCP Internal Medicine; Visit Provider Nurse Practitioner
DX: D69.6 Thrombocytopenia, unspecified (principal); R63.4 Abnormal weight loss; M25.50 Pain in unspecified joint; R68.81 Early satiety
CPT/HCPCS: 36415; 85652; 86038; 86140; 86200; 99202

== ENCOUNTER 2023-12-26 12:06 | Outpatient (AMB) | payer MEDICARE, MEDICAID, SELFPAY ==
--- NOTE | 2023-12-26 12:18 | A.OFFVIS_ITS ---
Vital Signs 3 12/26/23 12:27 Height 5 ft 6 in Weight 125 lb 3.561 oz BMI 20.2 BP 132/62 Blood Pressure Location Rt brachial Position Sitting Pulse 58 Pulse Source Pulse Oximeter Pulse Oximetry (%) 100 Oxygen Delivery Method Room Air Intake Visit Reasons: Dysphagia Intake Note: Dulce presents in office today for a scheduled initial assessment. CC; Pt reports onset of sx approximately 1 year ago. Pt reports that they have had some significant unintentional weight loss. Pt reports that they have LLQ pain upon any intake. Pt also reports having significant bloating when eating. Pt also reports fatigue and general malaise. Pt has had inconsistent appetite. Pt also reports having dysphagia while eating. Pt reports that they experience a sensation like someone is choking them. Pt also reports having hair loss within the last year as well. Pt states that they are having normal BM, approximately every day if not every other day. Pt reports taking senna at night. Pt does report occasional constipation with significant straining. Pt did notice some mild hematochezia with these episodes. Pt denies any nausea or vomiting. Marketing Underwriter Required: No Accompanied by: Significant Other Allergies amoxicillin [Amoxicillin] Allergy (Severe, Verified 12/26/23 12:27) RASH Sulfa (Sulfonamide Antibiotics) Allergy (Severe, Verified 12/26/23 12:27) RASH pravastatin Allergy (Unknown, Verified 12/26/23 12:27) myalgia pregabalin Allergy (Unknown, Verified 12/26/23 12:27) Muscle cramps atorvastatin Adverse Reaction (Unknown, Verified 12/26/23 12:27) leg pain and swelling ezetimibe [Zetia] Adverse Reaction (Unknown, Verified 12/26/23 12:27) joint pain oxycodone [Percocet] Adverse Reaction (Unknown, Verified 12/26/23 12:27) nausea, upset stomach, increased headaches rosuvastatin Adverse Reaction (Unknown, Verified 12/26/23 12:27) myalgia HPI HPI Dysphagia: Details: 53-year-old female here for initial evaluation of dysphagia. She is referred by Claude Steele PMX Overweight High cholesterol Generalized osteoarthritis Degenerative disc disease of the lumbar thoracic and cervical spines Depression with anxiety Allergic rhinitis Migraines * SURGICAL HISTORY Cervical diskectomy Total hysterectomy Carpal tunnel release bilateral Left breast cyst removal Rotator cuff repair Colonoscopy 2008, 2009, 2016 with haley normal and hyperplastic polyp * ALLERGIES AMOXICILLIN SULFA STATINS PREGABALIN OXYCODONE * Urbasolar LABS: Laboratory Tests 09/09/23 08:24 WBC 5.2 Hgb 12.2 Hct 36.8 L MCV 96.3 MCH 31.9 Plt Count 279 Total Bilirubin 0.4 AST 21 ALT 30 Alkaline Phosphatase 45 TSH 1.08 UPPER GI WITH SMALL BOWEL FOLLOW THROUGH 09/13/23 FINDINGS: Status post ACDF C5-C7. No obvious complication. There is fusion of the left SI joint. Dual and single contrast images of the esophagus demonstrate a normal caliber, and contour. There is felinization of the mid and distal esophageal mucosa. No masses or ulcerations are identified. There is mild narrowing of the GE junction. Esophageal peristalsis is mildly disorganized. No evidence of hiatus hernia identified. No significant gastroesophageal reflux was seen during the course of the examination and on reflux views. Dual contrast and single contrast images of the stomach demonstrated a normal contour. The gastric rugal folds have a thickened appearance. No masses or ulcerations are seen Contrast freely passed into the gastric antrum and duodenal bulb without delay. Single and air-contrast images of the duodenal bulb demonstrate no abnormality. The duodenal sweep has a normal appearance, course, and mucosal fold appearance. No malrotation. The imaged small bowel has a normal fold pattern and caliber. No strictures or masses are present. There is rapid transit of the barium column, with contrast observed in the left colon at 30 minutes. The ileocecal valve could not be visualized. FLUOROSCOPY TIME: 4 minutes 39 seconds Number of Spot Images: 12 Number of Cine: 12 DOSE AREA PRODUCT: 2328 uGy-m2 (microgray-meter squared) FL/FL upper GI small bowel IMPRESSION: 1. Felinization of the mid and distal esophageal mucosa. This is a benign finding that is associated with gastroesophageal reflux. While gastroesophageal reflux was not seen during this examination, suspect at least moderate reflux. 2. Mild narrowing of the GE junction that may represent achalasia. A benign stricture cannot be ruled out. Recommend correlation with EGD. 3. Thickened gastric rugal folds that likely represents gastritis. 4. Rapid transit of the barium column. Contrast is seen in the left colon after 30 minutes. The differential is broad. TODAY'S VISIT Onset 1 year ago with rapid wt loss and a severe lack of appetite not hungry after 2 bites. She started losing s lot of hair. She will frequently have pain in the LLQ after eating and increased gas and bloating. She is having dy sphagia at the level of the voice box mostly with liquids and I will choke. She also will have the feeling like someone has their hand around my neck and is choking me. This will happen randomly and intermittently and is not r/t eating. She takes senna to offset CIC r/t pain medication. This is working well. No new meds, no illness preceding. Her mother and sister had cholecystectomy and a sister has colitis. She moves her bowels well formed with corn and ice cream at times causing CIC, no diarrhea. No N/V. No pain except LLQ occasional. She is NOT diabetic but has significant early satiety. Getting EGD, US, GES, autoimmune work up as well. Start protonix and ROV 6 weeks. [facility] Medical History (Updated 12/26/23 @ 13:16 by STEVE Lazcano) Encounter for screening laboratory testing for COVID-19 virus Viral syndrome UTI (urinary tract infection) Osteoarthritis of spine with radiculopathy, lumbar region Gastritis Annual physical exam Colon cancer screening Breast cancer screening Osteoporosis screening Sprain of ulnar collateral ligament Tenderness of anatomical snuffbox Arthritis of carpometacarpal (CMC) joint of left thumb Sinusitis URI (upper respiratory infection) Breast cancer screening by mammogram Acute bilateral thoracic back pain Otitis media of right ear Family history of myocardial infarction Cervical cancer screening Overweight (BMI 25.0-29.9) Depression Anxiety Allergic rhinitis Reflex sympathetic dystrophy of left upper extremity Cervical spondylosis Primary osteoarthritis of right shoulder Pure hypercholesterolemia Migraine Surgical History (Updated 12/26/23 @ 12:55 by STEVE Lazcano) History of cervical discectomy S/P JOLENE-BSO (total abdominal hysterectomy and bilateral salpingo-oophorectomy) History of carpal tunnel release History of removal of cyst History of colonoscopy History of repair of rotator cuff Family History (Reviewed 12/26/23 @ 12:26 by Luis Eduardo Lainez [facility]) Father Prostate cancer Mother Lung cancer Hypertension CVD (cardiovascular disease) Diabetes Chronic mental illness Maternal Grandmother Colon cancer Other Mental health problem Social History Housing: House Alcohol intake: never Patient Tobacco Use Status: Former Tobacco user e-Cigarette/Vaping Use: Never Used Second Hand Smoke Exposure: Yes service: No Current occupational status: employed 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 Cognitive needs: No Hearing needs: No Vision needs: Yes Review of Systems Const Denies fatigue, Denies fever(s), Denies night sweats, Denies poor appetite and Reports weight loss ENT Reports Normal hearing present, Denies dental pain, Reports dysphagia, Denies hearing loss, Denies mouth pain, Denies odynophagia, Denies throat swelling, Denies tongue swelling and Reports other (Dentition adequate) Card Reports no additional complaints Resp Reports no additional complaints GI Details: Reports abdominal pain, Denies melena, Denies bloating, Denies hematochezia, Denies constipation, Denies GI cramping, Reports dysphagia, Denies excessive flatus, Denies early satiety, Reports heartburn, Reports diarrhea, Reports nausea, Denies odynophagia, Denies vomiting and Denies hematemesis Skin/Breast Denies pruritus, Denies lesions, Denies rash and Denies jaundice Neuro Reports Normal hearing present and Denies Abnormal speech present Endo Denies fatigue Aller/Immun Denies throat swelling and Denies tongue swelling Physical Exam Vital Signs: Last Vital Signs Pulse 58 12/26/23 12:27 BP 132/62 12/26/23 12:27 Pulse Ox 100 12/26/23 12:27 Oxygen Delivery Method Room Air 12/26/23 12:27 BMI result Body Mass Index 20.2 Const General: cooperative, no acute distress, well developed and well groomed Nutritional Appearance: average body habitus and well nourished Orientation/consciousness: oriented to person, oriented to place and oriented to time Limitations: No language barrier HEENT Head: Yes normocephalic and Yes atraumatic Head images: 2 1. surgical scar Eyes General: appearance normal, both eyes and all related structures Pupils: Equal, round and reactive pupils present Neck Neck: Yes normal visual inspection and Yes no lymphadenopathy Thyroid: Thyroid normal Resp Effort & Inspection: normal respiratory effort and able to speak in complete sentences Auscultation: clear to auscultation bilaterally Cardio Rate: regular rate Rhythm: regular rhythm Heart sounds: Normal, physiologic split S2 sound present Peripheral pulses: radial pulses present and posterior tibial pulses present GI Inspection: No distended and No Abdominal panniculus present Palpation (GI): Soft to palpation, nontender, no guarding, not rigid and No hepatosplenomegaly present Percussion: Yes normal to percussion Auscultation: normal bowel sounds Rectal Exam - Female: deferred Abdomen image: 2 1. surgical scars Skin General skin exam: no rashes or lesions noted, turgor normal, skin not dry, no jaundice, No spider nevi and no striae Rashes: no rashes Nails: normal Neuro General: oriented to person, oriented to place and oriented to time Cranial nerves: Yes Equal, round and reactive pupils present and Yes Normal hearing present Speech: No Abnormal speech present Extrem General: Yes normal to inspection, No clubbing, No cyanosis and No edema Psych Appearance: grossly normal and well kempt Mental Status: mental status grossly normal Speech and movement: Normal speech and movement present Affect: normal affect Attitude: cooperative Thought process: Normal thought process present and not confabulating Thought content: Normal thought content present Insight: Fair insight present (Psych) Judgement: Fair judgement present (Psych) Assessment & Plan Assessment & Plan (1) Dysphagia: Code(s): R13.10 - Dysphagia, unspecified Category: Medical (2) Early satiety: Code(s): R68.81 - Early satiety Category: Medical (3) Weight loss, unintentional: Code(s): R63.4 - Abnormal weight loss Category: Medical (4) Thrombocytopenia: Code(s): D69.6 - Thrombocytopenia, unspecified Category: Medical (5) Arthralgia: Code(s): M25.50 - Pain in unspecified joint Category: Medical Plan Onset 1 year ago with rapid wt loss and a severe lack of appetite not hungry after 2 bites. She started losing s lot of hair. She will frequently have pain in the LLQ after eating and increased gas and bloating. She is having dy sphagia at the level of the voice box mostly with liquids and I will choke. She also will have the feeling like someone has their hand around my neck and is choking me. This will happen randomly and intermittently and is not r/t eating. She takes senna to offset CIC r/t pain medication. This is working well. No new meds, no illness preceding. Her mother and sister had cholecystectomy and a sister has colitis. She moves her bowels well formed with corn and ice cream at times causing CIC, no diarrhea. No N/V. No pain except LLQ occasional. She is NOT diabetic but has significant early satiety. Getting EGD, US, GES, autoimmune work up as well. Start protonix and ROV 6 weeks. Orders: Orders 2 EGD - GI Use Only 12/26/23 R13.10 - Dysphagia, unspecified NM gastric emptying study 12/26/23 R63.4 - Abnormal weight loss, R13.10 - Dysphagia, unspecified C Reactive Protein 12/26/23 D69.6 - Thrombocytopenia, unspecified, R63.4 - Abnormal weight loss, M25.50 - Pain in unspecified joint Cyclic Citrullinated Peptide 12/26/23 D69.6 - Thrombocytopenia, unspecified, R63.4 - Abnormal weight loss, M25.50 - Pain in unspecified joint US abdomen complete 12/26/23 R13.10 - Dysphagia, unspecified FLOYD Reflex Titer and Pattern 12/26/23 D69.6 - Thrombocytopenia, unspecified, R63.4 - Abnormal weight loss, M25.50 - Pain in unspecified joint Erythrocyte Sedimentation Rate 12/26/23 D69.6 - Thrombocytopenia, unspecified, R63.4 - Abnormal weight loss, M25.50 - Pain in unspecified joint Medications: New 2 pantoprazole (Protonix) 40 mg PO DAILY 30 tabs 6RF 30 days Coding Level of Care Code New Pt Level 3 (85743) Diagnoses Dysphagia R13.10 Early satiety R68.81 Weight loss, unintentional R63.4 Thrombocytopenia D69.6 Arthralgia M25.50
[2023-12-26 12:27] VITALS: BP 132/62; PULSE 58; O2SAT 100; BMI 20.2
== END 2023-12-26 13:22 | disposition home or self-care (01) ==
PROVIDERS: PCP Internal Medicine; Visit Provider Nurse Practitioner
DX: R13.10 Dysphagia, unspecified (principal); R68.81 Early satiety; R63.4 Abnormal weight loss; D69.6 Thrombocytopenia, unspecified; M25.50 Pain in unspecified joint
CPT/HCPCS: 99203

== ENCOUNTER 2024-01-29 16:08 | Outpatient (AMB) | payer MEDICARE, MEDICAID, SELFPAY ==
[2024-01-29 16:20] VITALS: BP 124/82; PULSE 67; O2SAT 99; BMI 21.2
--- NOTE | 2024-01-29 16:20 | A.OFFPC_ITS ---
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 Required: No Accompanied by: Self / Same As Patient Allergies amoxicillin [Amoxicillin] Allergy (Severe, Verified 02/02/24 17:57) RASH Sulfa (Sulfonamide Antibiotics) Allergy (Severe, Verified 02/02/24 17:57) RASH pravastatin Allergy (Unknown, Verified 02/02/24 17:57) myalgia pregabalin Allergy (Unknown, Verified 02/02/24 17:57) Muscle cramps atorvastatin Adverse Reaction (Unknown, Verified 02/02/24 17:57) leg pain and swelling ezetimibe [Zetia] Adverse Reaction (Unknown, Verified 02/02/24 17:57) joint pain oxycodone [Percocet] Adverse Reaction (Unknown, Verified 02/02/24 17:57) nausea, upset stomach, increased headaches rosuvastatin Adverse Reaction (Unknown, Verified 02/02/24 17:57) myalgia Medication List - Last Reconciled 01/29/24 by Claude Steele MD alirocumab (Praluent Pen) 75 mg subcut Q2W chlorhexidine gluconate 0.12% PO citalopram 20 mg PO DAILY 90 days clindamycin HCl 150 mg PO Q6H hydrocodone-acetaminophen 7.5-325 mg 1 tab PO .4x a day PRN 28 days lorazepam 1 mg PO QID PRN 30 days pantoprazole (Protonix) 40 mg PO DAILY 30 days sennosides (Senna Laxative) 8.6 mg PO BEDTIME sumatriptan succinate 100 mg PO as directed as needed. may repeat one more time if needed; 30 days zolpidem 10 mg PO BEDTIME PRN NS Tobacco use date assessed: 01/29/24 Dental Screening Dental Screen Date: 01/29/24 Did you have a dental visit in the last 12 months?: Yes Did you have a dental problem in the last 6 months where you did not have access to dental care?: No Was dental information given to patient?: Patient has dentist HPI f\u HPI Details Patient comes in today for her follow up visit She was seen by GI last month for her symptoms of unintentional weight loss, early satiety, difficulty with swallowing and other related GI complaints that she's had over the past year or so and she is being sent for additional testing for further evaluation, including labs, abdominal US, gastric emptying time and EGD Upper GI series done a few months ago revealed findings suggestive of GERD, achalasia and gastritis She denies any headaches or dizziness but she continues to complain of increased pain and discomfort in her right ear She denies any fever or sore throat Denies any chest pains, no SOB No nausea/vomiting and no change in bowel habits noted She would like to know how she did on her labs done back in September 2023 [facility] Medical History (Updated 02/02/24 @ 18:08 by Claude Steele MD) Osteoarthritis of spine with radiculopathy, lumbar region Gastritis Sprain of ulnar collateral ligament Arthritis of carpometacarpal (CMC) joint of left thumb Acute bilateral thoracic back pain Family history of myocardial infarction Overweight (BMI 25.0-29.9) Depression Anxiety Allergic rhinitis Reflex sympathetic dystrophy of left upper extremity Cervical spondylosis Primary osteoarthritis of right shoulder Pure hypercholesterolemia Migraine Surgical History History of cervical discectomy S/P JOLENE-BSO (total abdominal hysterectomy and bilateral salpingo-oophorectomy) History of carpal tunnel release History of removal of cyst History of colonoscopy History of repair of rotator cuff Family History Father Prostate cancer Mother Lung cancer Hypertension CVD (cardiovascular disease) Diabetes Chronic mental illness Maternal Grandmother Colon cancer Sister History of breast cancer, Onset Age: 64 Other Mental health problem Social History Housing: House Alcohol intake: never Patient Tobacco Use Status: Former Tobacco user e-Cigarette/Vaping Use: Never Used Second Hand Smoke Exposure: Yes service: No Current occupational status: employed 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 1. Little interest or pleasure in doing things: several days 2. Feeling down, depressed, or hopeless: several days 3. Trouble falling or staying asleep, or sleeping too much: nearly every day 4. Feeling tired or having little energy: several days 5. Poor appetite or overeating: nearly every day 6. Feeling bad about yourself - or that you are a failure or have let yourself or your family down: several days 7. Trouble concentrating on things, such as reading the newspaper or watching television: nearly every day 8. Moving or speaking so slowly that other people could have noticed. Or the opposite - being so fidgety or restless that you have been moving around a lot more than usual: more than half the days 9. Thoughts that you would be better off or of hurting yourself in some way: not at all Total score: 15 Depression Screening Interpretation: Positive Depression Screening Follow-up: Existing condition and In treatment Depression Screening Done: Yes 09904 - PHQ-9 Billing: Yes Source: Developed by Drs. Eulogio Obregon, Marianela Smith, Alec Zapata and colleagues, with an educational sunshine from [employer]. Thrive Questionnaire Date Thrive assessed: 01/29/24 I am a: Patient What is your living situation today?: I have a steady place to live Within the past 12 months, did the food you bought not last and you didn't have the money to get more?: Never true Within the past 12 months, did you worry whether your food would run out before you got money to buy more?: Never true Do you have trouble paying for medicines?: No Do you have trouble getting transportation to medical appointments?: No Do you have trouble paying your heating and electricity bill?: No Do you have trouble taking care of your child, family member or friend?: No Do you have trouble with day-to-day activities such as bathing, preparing meals, shopping, managing finances, etc.?: No Are you currently unemployed and looking for a job?: No Are you interested in more education?: No Please select the resources that you would like help with: None Currently or been in a relationship where the following occur: No concerns reported THRIVE Score: 0 AUDIT C Alcohol Use Questionnaire (AUDIT-C) 1. How often do you have a drink containing alcohol?: Never 3. How often do you have six or more drinks on one occasion?: Never Total Score: 0 Score Reviewed/Action Taken: Yes WALE-7 AMB Questionnaire WALE-7 Date WALE - 7 assessed: 01/29/24 Feeling nervous, anxious, or on edge: 1 = Several days Not being able to stop or control worryin = Nearly every day Worrying too much about different things: 3 = Nearly every day Trouble relaxin = More than half the days Being so restless that it is hard to sit still: 2 = More than half the days Becoming easily annoyed or irritable: 3 = Nearly every day Feeling afraid as if something awful might happen: 3 = Nearly every day Total WALE-7 score (0-4 normal; 5-9 mild; 10-14 moderate; 15-21 severe): 17 Source: Developed by Drs. Eulogio Obregon, Marianela Smith, Alec Zapata and colleagues, with an educational sunshine from [employer]. Review of Systems Const Denies chills, Reports fatigue, Denies fever(s), Denies headache(s) and Reports poor appetite ENT Reports dysphagia (feels like she is choking at times), Denies dizziness, Reports otalgia (in the right ear), Denies headache(s), Reports neck pain (chronic), Denies odynophagia and Denies sore throat Card Denies chest pain, Denies rapid heart rate, Denies irregular heart rhythm, Denies palpitations and Denies dyspnea Resp Denies chest congestion, Denies cough and Denies dyspnea GI Denies abdominal pain, Reports bloating, Reports constipation (chronic - mainly due to her pain meds), Reports dysphagia (feels like she is choking at times), Reports early satiety, Denies heartburn, Denies diarrhea, Denies nausea, Denies odynophagia and Denies vomiting Denies hematuria, Denies nocturia, Denies dysuria, Denies urinary incontinence and Denies urinary urgency Musc Reports back pain (chronic, over the lower back), Reports arthralgias (over the left shoulder and left wrist), Reports neck pain (chronic) and Reports radiating pain into limb (left arm) Skin/Breast Denies rash Neuro Denies dizziness, Denies headache(s) and Denies paresthesias Endo Reports fatigue and Denies palpitations Jose/Lymph Denies easy bruising Physical exam (Primary Care) Vital Signs: Last Vital Signs Pulse 67 01/29/24 16:20 BP 124/82 01/29/24 16:20 Pulse Ox 99 01/29/24 16:20 Oxygen Delivery Method Room Air 01/29/24 16:20 BMI result Body Mass Index 21.2 Tobacco/Smoking Status: Tobacco use Status Tobacco use date assessed 01/29/24 01/29/24 16:23 Patient Tobacco Use Status Former Tobacco user 01/29/24 16:23 e-Cigarette/Vaping Use Never Used 01/29/24 16:23 PHQ-9: PHQ-9 Score PHQ-9: Total score 15 01/29/24 16:57 Depression Screening Interpretation: Positive Depression Screening Follow-up: Existing condition and In treatment Thrive Assessment: Date of Thrive Assessment Date Thrive assessed 01/29/24 01/29/24 16:27 Currently or been in a relationship where the following occur: No concerns reported Const General: no acute distress and alert HENMT Ears: TM normal on the left and TM abnormal perforated without discharge on the right; not with effusion and not erythematous Throat: Yes posterior oropharynx normal and Yes tonsils normal (no TP congestion) Neck Neck: Yes no lymphadenopathy and Yes supple Thyroid: Thyroid normal Resp Auscultation: clear to auscultation bilaterally, no rales and no wheezes Cardio Rate: regular rate Rhythm: regular rhythm Heart sounds: no murmurs GI Palpation (GI): Soft to palpation and nontender Auscultation: normal bowel sounds General: Yes no CVA tenderness Back/Spine/Pelvis Back: no CVA tenderness Cervical Spine: Cervical spine tenderness Thoracic/Lumbar Spine: paraspinal muscle tenderness bilaterally in the lower thoracic and lumbar spinal tenderness Sacroiliac joints: on the left tender to palpation Skin Rashes: no rashes Extrem General: Yes no clubbing, cyanosis or edema Left upper extremity: wrist ((+) tenderness) Results Reviewed Results Reviewed: Laboratory Tests 09/09/23 09/09/23 08:21 08:24 WBC 5.2 Hgb 12.2 Hct 36.8 L Plt Count 279 Sodium 143 Potassium 5.0 Creatinine 0.81 Estimated GFR > 60 Fasting Glucose 90 AST 21 ALT 30 Triglycerides 105 Cholesterol 147 LDL Cholesterol, Calc 58 HDL Cholesterol 68 Vitamin B12 1336 H 25-OH Vitamin D Total 79.0 TSH 1.08 Urine pH 6.0 Ur Specific [place] 1.025 Urine Protein Negative Urine Glucose (UA) Negative Urine Blood Negative Urine Nitrite Negative Ur Leukocyte Esterase Negative Assessment and Plan Assessment & Plan (1) Early satiety: Code(s): R68.81 - Early satiety Plan: Upper GI series done a few months ago revealed findings suggestive of GERD, achalasia and gastritis She was referred to and seen by GI last month for her GI symptoms and she is being sent for additional testing for further evaluation, including labs, abdominal US, gastric emptying time and EGD Follow up with GI as scheduled (2) Gastritis: Code(s): K29.70 - Gastritis, unspecified, without bleeding Qualifiers: Chronicity: unspecified Gastritis bleeding: without bleeding Gastritis type: unspecified gastritis Qualified Code(s): K29.70 - Gastritis, unspecified, without bleeding Plan: Reinforced dietary restrictions Continue Omeprazole 20 mg QD for now but suspect that her gastritis may also be contributing to her recent GI symptoms She is now seeing GI for further evaluation and management - will likely benefit from EGD for further clarification of her symptoms (3) Pure hypercholesterolemia: Code(s): E78.00 - Pure hypercholesterolemia, unspecified Plan: Results of her labs done back in September 2023 reviewed and discussed with patient - she is advised that her cholesterol levels have improved significantly from previous, with her LDL cholesterol now at 58 mg/dl (was at 157 mg/dl previously) Reinforced low cholesterol diet Patient has been tried on and was not able to tolerate all of the available statins in the past, including pravastatin, simvastatin, atorvastatin and rosuvastatin; she has also been tried on ezetimibe and could not tolerate that as well She is now on Praluent 75 mg SQ every 2 weeks and has been tolerating the Rx so far without any problems Will recheck her labs and fasting lipids in a few months for follow up (4) Migraine: Code(s): G43.909 - Migraine, unspecified, not intractable, without status migrainosus Qualifiers: Intractability: not intractable Migraine type: unspecified Status migrainosus presence: without status migrainosus Qualified Code(s): G43.909 - Migraine, unspecified, not intractable, without status migrainosus Plan: Reinforced avoidance of all potential migraine triggers Continue Sumatriptan 50 mg PRN (5) Reflex sympathetic dystrophy of left upper extremity: Code(s): G90.512 - Complex regional pain syndrome I of left upper limb Plan: States that her chronic arm pain remains adequately controlled on her current Rx (6) Cervical spondylosis: Comment: S/P C5-C6 ACDF a couple of years ago - neck still feels sore frequently but left arm weakness has improved with surgery Code(s): M47.812 - Spondylosis without myelopathy or radiculopathy, cervical region Plan: Continue Cyclobenzaprine 10 mg 3 times a day as needed (7) Osteoarthritis of spine with radiculopathy, lumbar region: Code(s): M47.26 - Other spondylosis with radiculopathy, lumbar region Plan: Reinforced activity and weight-lifting restrictions She could not tolerate physical therapy in the past; cortisone injections in the past at [facility] have helped temporarily She has also received epidural injections from [facility] for a few months a couple of years ago, with variable results She was seen by Dr. Darien Monroe at [facility] in the past and also had a couple of SI joint injections that she states helped only temporarily She was then referred to Dr. Salvador Hurt in [place] and underwent MIS fixation of left sacroiliac joint for stabilization on 02/28/22, followed by physical therapy when she was cleared by her surgeon for rehab States that the surgery helped her somewhat but we have not received any further updates on her condition via correspondence or OV notes from her doctors in [place] since her surgery Reports that her pain seems to have gotten worse again a few months after her surgery and her symptoms have persisted since Continue Hydrocodone-Acetaminophen 7.5-325 mg 1 tablet 4 times a day as needed for increased pain (8) Arthritis of carpometacarpal (CMC) joint of left thumb: Code(s): M18.12 - Unilateral primary osteoarthritis of first carpometacarpal joint, left hand Plan: MRI of the left wrist done last year revealed (+) severe OA changes in the wrist Follow up with orthopedics as scheduled (9) Allergic rhinitis: Code(s): J30.9 - Allergic rhinitis, unspecified Qualifiers: Allergic rhinitis seasonality: unspecified Allergic rhinitis trigger: unspecified Qualified Code(s): J30.9 - Allergic rhinitis, unspecified Plan: Continue Fluticasone 50 mcg nasal spray QD PRN (10) Anxiety: Code(s): F41.9 - Anxiety disorder, unspecified Plan: Continue Lorazepam 1 mg 4 times a day as needed (11) Depression: Code(s): F32.9 - Major depressive disorder, single episode, unspecified Qualifiers: Active/Remission status: currently active Depression Type: major depressive disorder Major depression episode severity: unspecified Major depression recurrence: recurrent Qualified Code(s): F33.9 - Major depressive disorder, recurrent, unspecified Plan: Continue Citalopram 20 mg once a day Follow-up with Psychiatry as scheduled Plan Follow up in 3 months Orders: Orders Complete Blood Count Auto Diff 3 Months D64.9 - Anemia, unspecified Comprehensive [place]. Panel Fast 3 Months E78.00 - Pure hypercholesterolemia, unspecified Lipid Panel 3 Months E78.00 - Pure hypercholesterolemia, unspecified Coding Level of Care Code Est Pt Level 4 (68727) Diagnoses Early satiety R68.81 Gastritis without bleeding, unspecified chronicity, unspecified gastritis type K29.70 Chronicity: unspecified Gastritis bleeding: without bleeding Gastritis type: unspecified gastritis Pure hypercholesterolemia E78.00 Migraine without status migrainosus, not intractable, unspecified migraine type G43.909 Intractability: not intractable Migraine type: unspecified Status migrainosus presence: without status migrainosus Reflex sympathetic dystrophy of left upper extremity G90.512 Cervical spondylosis M47.812 Osteoarthritis of spine with radiculopathy, lumbar region M47.26 Arthritis of carpometacarpal (CMC) joint of left thumb M18.12 Allergic rhinitis, unspecified seasonality, unspecified trigger J30.9 Allergic rhinitis seasonality: unspecified Allergic rhinitis trigger: unspecified Anxiety F41.9 Episode of recurrent major depressive disorder, unspecified depression episode severity F33.9 Active/Remission status: currently active Depression Type: major depressive disorder Major depression episode severity: unspecified Major depression recurrence: recurrent
== END 2024-01-29 16:59 | disposition home or self-care (01) ==
PROVIDERS: PCP Internal Medicine; Visit Provider Internal Medicine
DX: K29.70 Gastritis, unspecified, without bleeding (principal); E78.00 Pure hypercholesterolemia, unspecified; F33.9 Major depressive disorder, recurrent, unspecified; R68.81 Early satiety; G43.909 Migraine, unspecified, not intractable, without status migrainosus; G90.512 Complex regional pain syndrome I of left upper limb; M47.812 Spondylosis without myelopathy or radiculopathy, cervical region; M47.26 Other spondylosis with radiculopathy, lumbar region; M18.12 Unilateral primary osteoarthritis of first carpometacarpal joint, left hand; J30.9 Allergic rhinitis, unspecified; F41.9 Anxiety disorder, unspecified

== ENCOUNTER → 2024-01-29 16:08 | Outpatient (BNVA) | payer MEDICARE, MEDICAID, SELFPAY | PROVIDERS: PCP Internal Medicine; Visit Provider Internal Medicine | DX: R68.81 Early satiety (principal); K29.70 Gastritis, unspecified, without bleeding; E78.00 Pure hypercholesterolemia, unspecified; F41.9 Anxiety disorder, unspecified; F33.9 Major depressive disorder, recurrent, unspecified; G43.909 Migraine, unspecified, not intractable, without status migrainosus | CPT/HCPCS: 99212 ==

== ENCOUNTER 2024-01-31 13:02 | Outpatient (AMB) | payer MEDICARE, MEDICAID, SELFPAY ==
--- NOTE | 2024-01-31 13:27 | A.OFFVIS_ITS ---
Vital Signs 01/31/24 13:28 Height 5 ft 6 in Weight 132 lb BMI 21.3 BP 122/80 Intake Visit Reasons: New patient Annual Musician Instrumental: Musician Instrumental Present (Danielle) Allergies amoxicillin [Amoxicillin] Allergy (Severe, Verified 01/31/24 13:28) RASH Sulfa (Sulfonamide Antibiotics) Allergy (Severe, Verified 01/31/24 13:28) RASH pravastatin Allergy (Unknown, Verified 01/31/24 13:28) myalgia pregabalin Allergy (Unknown, Verified 01/31/24 13:28) Muscle cramps atorvastatin Adverse Reaction (Unknown, Verified 01/31/24 13:28) leg pain and swelling ezetimibe [Zetia] Adverse Reaction (Unknown, Verified 01/31/24 13:28) joint pain oxycodone [Percocet] Adverse Reaction (Unknown, Verified 01/31/24 13:28) nausea, upset stomach, increased headaches rosuvastatin Adverse Reaction (Unknown, Verified 01/31/24 13:28) myalgia HPI Comments Details: She is a postmenopausal woman 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 She is doing well with no concerns. Attempting to eat a healthy diet with calcium and vitamin D and stays active with exercise. Currently not sexually active. Denies any vaginal dryness or irritation. STI testing offered; she declines. Hysterectomy in 2011 due to endometriosis. JOLENE and BSO. Last mammogram; 2023. Colonoscopy is UTD. Family history of breast cancer sister, has 2nd occurrence requiring surgery next week, unknown if she has had BRCA testing. Colon cancer-maternal grandmother. [facility] Medical History Encounter for screening laboratory testing for COVID-19 virus Viral syndrome UTI (urinary tract infection) Osteoarthritis of spine with radiculopathy, lumbar region Gastritis Annual physical exam Colon cancer screening Breast cancer screening Osteoporosis screening Sprain of ulnar collateral ligament Tenderness of anatomical snuffbox Arthritis of carpometacarpal (CMC) joint of left thumb Sinusitis URI (upper respiratory infection) Breast cancer screening by mammogram Acute bilateral thoracic back pain Otitis media of right ear Family history of myocardial infarction Cervical cancer screening Overweight (BMI 25.0-29.9) Depression Anxiety Allergic rhinitis Reflex sympathetic dystrophy of left upper extremity Cervical spondylosis Primary osteoarthritis of right shoulder Pure hypercholesterolemia Migraine Surgical History History of cervical discectomy S/P JOLENE-BSO (total abdominal hysterectomy and bilateral salpingo-oophorectomy) History of carpal tunnel release History of removal of cyst History of colonoscopy History of repair of rotator cuff Family History (Updated 01/31/24 @ 14:00 by Mary Grace Cedillo CNM) Father Prostate cancer Mother Lung cancer Hypertension CVD (cardiovascular disease) Diabetes Chronic mental illness Maternal Grandmother Colon cancer Sister History of breast cancer, Onset Age: 64 Other Mental health problem Social History Housing: House Alcohol intake: never Patient Tobacco Use Status: Former Tobacco user e-Cigarette/Vaping Use: Never Used Second Hand Smoke Exposure: Yes service: No Current occupational status: employed 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 Cognitive needs: No Hearing needs: No Vision needs: Yes Female Reproductive History Menstrual Menopause type: surgical Total pregnancies: 0 Date of Mammogram: 06/14/23 (Birad 1) Review of Systems Const All systems reviewed & are unremarkable except as noted in HPI and below Reports as per HPI Eyes Reports no additional complaints ENT Reports no additional complaints Card Reports no additional complaints Resp Reports no additional complaints GI Reports as per HPI and Reports no additional complaints Reports as per HPI Musc Reports no additional complaints Skin/Breast Reports as per HPI Neuro Reports no additional complaints Psych Reports no additional complaints Endo Reports no additional complaints Jose/Lymph Reports no additional complaints Aller/Immun Reports no additional complaints Physical Exam Vital Signs: Last Vital Signs BP 122/80 01/31/24 13:28 BMI result Body Mass Index 21.3 Const General: cooperative, healthy appearing, no acute distress, well developed and alert Orientation/consciousness: patient oriented x3 HEENT Head: Yes normal to inspection Eyes General: appearance normal, both eyes and all related structures Neck Neck: Yes normal visual inspection Thyroid: Thyroid normal Chest Other: Scar right breast Chest palpation & inspection: normal inspection of the chest and other (no puckering, dimpling, peau de orange, retraction, discharge, masses) Breast/axilla inspection: normal inspection of the breasts Breast/axilla palpation: normal palpation of the breasts Resp Effort & Inspection: normal respiratory effort GI Inspection: Yes normal to inspection Palpation (GI): Soft to palpation Rectal Exam - Female: deferred General: Yes bladder normal to palpation External Female Exam: normal external appearance and normal appearance of the urethra Speculum Exam - Vagina: normal appearance of the vagina, normal palpation, normal vaginal discharge and vagina atrophic Speculum Exam - Cervix: Cervix absent (Vaginal cuff no lesions or nodules) Bimanual exam- vagina & uterus: normal bimanual exam, normal palpation, bladder normal to palpation and uterus absent Bimanual Exam- Adnexa, other: no masses Skin General skin exam: no rashes or lesions noted Rashes: no rashes Neuro General: patient oriented x3 Cognition (Neuro): normal cognition Extrem General: Yes normal to inspection Psych Attitude: cooperative Thought process: Normal thought process present Assessment & Plan Assessment & Plan (1) Encounter for well woman exam with routine gynecological exam: Code(s): Z01.419 - Encounter for gynecological examination (general) (routine) without abnormal findings Category: Medical Plan Discussed: Current recommendations for pap smears per ASCCP guidelines-not required Breast awareness, periodic self breast exams and yearly mammogram. Maintain a healthy lifestyle, well balanced diet including Calcium 1,200 mg and Vitamin D 600 IU daily, and routine exercise. Replens moisturizer, lubricants. BRCA testing, call if considering, will check with sister if had BRCA testing. Patient verbalizes understanding and agrees to the plan of care. She was given opportunity to ask questions and all questions were answered to the best of my ability. RTO in 1 year for annual personal injury paralegal exam. This note is constructed using voice recognition software. While every effort has been made to ensure accuracy, molder closed molds errors may have been included. Coding Level of Care Code New Pt Prev Care 40-64y(77857) Diagnoses Encounter for well woman exam with routine gynecological exam Z01.419
[2024-01-31 13:28] VITALS: BP 122/80; BMI 21.3
== END 2024-01-31 14:12 | disposition home or self-care (01) ==
PROVIDERS: PCP Internal Medicine; Visit Provider Advanced Practice Midwife
DX: Z01.419 Encounter for gynecological examination (general) (routine) without abnormal findings (principal)
CPT/HCPCS: G0101

== ENCOUNTER → 2024-01-31 13:02 | Outpatient (BNVA) | payer MEDICARE, SELFPAY | PROVIDERS: PCP Internal Medicine; Visit Provider Advanced Practice Midwife | DX: Z01.419 Encounter for gynecological examination (general) (routine) without abnormal findings (principal) | CPT/HCPCS: G0101 ==

== ENCOUNTER 2024-03-19 11:57 | Outpatient (REF) | payer MEDICARE, MEDICAID, SELFPAY | END 2024-03-19 11:58 | disposition home or self-care (01) | LOC: HO.LAB 11:57 | PROVIDERS: PCP Internal Medicine; Visit Provider Nurse Practitioner Family | DX: Z13.89 Encounter for screening for other disorder (principal) ==

== ENCOUNTER 2024-05-07 09:28 | Outpatient (AMB) | payer MEDICARE, MEDICAID, SELFPAY ==
[2024-05-07 09:29] VITALS: BP 102/66; PULSE 75; O2SAT 97; BMI 21.1
--- NOTE | 2024-05-07 09:29 | MHC.PC.OV ---
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 Accompanied by: Self / Same As Patient Allergies amoxicillin [Amoxicillin] Allergy (Severe, Verified 05/07/24 10:14) RASH Sulfa (Sulfonamide Antibiotics) Allergy (Severe, Verified 05/07/24 10:14) RASH pravastatin Allergy (Unknown, Verified 05/07/24 10:14) myalgia pregabalin Allergy (Unknown, Verified 05/07/24 10:14) Muscle cramps atorvastatin Adverse Reaction (Unknown, Verified 05/07/24 10:14) leg pain and swelling ezetimibe [Zetia] Adverse Reaction (Unknown, Verified 05/07/24 10:14) joint pain oxycodone [Percocet] Adverse Reaction (Unknown, Verified 05/07/24 10:14) nausea, upset stomach, increased headaches rosuvastatin Adverse Reaction (Unknown, Verified 05/07/24 10:14) myalgia Medication List - Last Reconciled 05/07/24 by Claude Steele MD alirocumab (Praluent Pen) 75 mg subcut Q2W citalopram 20 mg PO DAILY 90 days hydrocodone-acetaminophen 7.5-325 mg 1 tab PO .4x a day PRN 28 days lorazepam 1 mg PO QID PRN 30 days pantoprazole (Protonix) 40 mg PO DAILY 30 days sennosides (Senna Laxative) 8.6 mg PO BEDTIME sumatriptan succinate 100 mg PO as directed as needed. may repeat one more time if needed; 30 days zolpidem 10 mg PO BEDTIME PRN NS Tobacco use date assessed: 05/07/24 Dental Screening Dental Screen Date: 05/07/24 Did you have a dental visit in the last 12 months?: Yes Did you have a dental problem in the last 6 months where you did not have access to dental care?: No Was dental information given to patient?: Patient has dentist HPI 3 month f/u HPI Details Patient comes in today for her follow-up visit States that she has been experiencing increased sinus congestion, pressure and discomfort for the past 1-1/2 weeks Notes (+) sinus tenderness at times (R>L) and thinks that she may have a sinus infection as she's had a couple of episodes of bloody nasal discharge lately She denies any fever or sore throat; denies any headaches or dizziness Denies any chest pains, no increased shortness of breath No nausea/vomiting, no abdominal pain No change in bowel habits noted Adds that she has been feeling very depressed lately and does not think that her current Rx is helping She was not able to get her follow up labs done prior to her appointment today [facility] Medical History (Updated 05/10/24 @ 21:25 by Claude Steele MD) Arthritis of carpometacarpal (CMC) joint of left thumb Gastritis Osteoarthritis of spine with radiculopathy, lumbar region Sprain of ulnar collateral ligament Acute bilateral thoracic back pain Family history of myocardial infarction Overweight (BMI 25.0-29.9) Depression Anxiety Allergic rhinitis Reflex sympathetic dystrophy of left upper extremity Cervical spondylosis Primary osteoarthritis of right shoulder Pure hypercholesterolemia Migraine Surgical History History of cervical discectomy S/P JOLENE-BSO (total abdominal hysterectomy and bilateral salpingo-oophorectomy) History of carpal tunnel release History of removal of cyst History of colonoscopy History of repair of rotator cuff Family History Father Prostate cancer Mother Lung cancer Hypertension CVD (cardiovascular disease) Diabetes Chronic mental illness Maternal Grandmother Colon cancer Sister History of breast cancer, Onset Age: 64 Other Mental health problem Social History Housing: House Alcohol intake: never Patient Tobacco Use Status: Former Tobacco user e-Cigarette/Vaping Use: Never Used Second Hand Smoke Exposure: Yes service: No Current occupational status: employed 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 1. Little interest or pleasure in doing things: several days 2. Feeling down, depressed, or hopeless: several days 3. Trouble falling or staying asleep, or sleeping too much: nearly every day 4. Feeling tired or having little energy: several days 5. Poor appetite or overeating: nearly every day 6. Feeling bad about yourself - or that you are a failure or have let yourself or your family down: several days 7. Trouble concentrating on things, such as reading the newspaper or watching television: nearly every day 8. Moving or speaking so slowly that other people could have noticed. Or the opposite - being so fidgety or restless that you have been moving around a lot more than usual: more than half the days 9. Thoughts that you would be better off or of hurting yourself in some way: not at all Total score: 15 Depression Screening Interpretation: Positive Depression Screening Follow-up: Existing condition, In treatment, New Medication prescribed and Change in Medication (dose increase) Depression Screening Done: Yes 77169 - PHQ-9 Billing: Yes Source: Developed by Drs. Eulogio Obregon, Marianela Smith, Alec Zapata and colleagues, with an educational sunshine from [employer]. Thrive Questionnaire Date Thrive assessed: 05/07/24 I am a: Patient What is your living situation today?: I have a steady place to live Within the past 12 months, did the food you bought not last and you didn't have the money to get more?: Never true Within the past 12 months, did you worry whether your food would run out before you got money to buy more?: Never true Do you have trouble paying for medicines?: No Do you have trouble getting transportation to medical appointments?: No Do you have trouble paying your heating and electricity bill?: No Do you have trouble taking care of your child, family member or friend?: No Do you have trouble with day-to-day activities such as bathing, preparing meals, shopping, managing finances, etc.?: No Are you currently unemployed and looking for a job?: No Are you interested in more education?: No Please select the resources that you would like help with: None Currently or been in a relationship where the following occur: No concerns reported THRIVE Score: 0 AUDIT C Alcohol Use Questionnaire (AUDIT-C) 1. How often do you have a drink containing alcohol?: Monthly or less 2. How many drinks containing alcohol do you have on a typical day when you are drinking?: 1 or 2 3. How often do you have six or more drinks on one occasion?: Never Total Score: 1 Score Reviewed/Action Taken: Yes WALE-7 AMB Questionnaire WALE-7 Date WALE - 7 assessed: 05/07/24 Feeling nervous, anxious, or on edge: 1 = Several days Not being able to stop or control worryin = Nearly every day Worrying too much about different things: 3 = Nearly every day Trouble relaxin = More than half the days Being so restless that it is hard to sit still: 2 = More than half the days Becoming easily annoyed or irritable: 3 = Nearly every day Feeling afraid as if something awful might happen: 3 = Nearly every day Total WALE-7 score (0-4 normal; 5-9 mild; 10-14 moderate; 15-21 severe): 17 Source: Developed by Drs. Eulogio Obregon, Marianela Smith, Alec Zapata and colleagues, with an educational sunshine from [employer]. Review of Systems Const Denies chills, Reports fatigue, Denies fever(s) and Denies headache(s) ENT Reports dysphagia (feels like she is choking at times), Denies dizziness, Reports otalgia (in the right ear), Denies headache(s), Reports nasal congestion, Reports nasal discharge, Reports neck pain (chronic), Denies odynophagia, Reports sinus pain, Reports sinus pressure and Denies sore throat Card Denies chest pain, Denies rapid heart rate, Denies irregular heart rhythm, Denies palpitations and Denies dyspnea Resp Denies chest congestion, Denies cough and Denies dyspnea GI Denies abdominal pain, Reports bloating (at times), Reports constipation (chronic - mainly due to her pain meds), Reports dysphagia (feels like she is choking at times), Denies heartburn, Denies diarrhea, Denies nausea, Denies odynophagia and Denies vomiting Denies hematuria, Denies nocturia, Denies dysuria, Denies urinary incontinence and Denies urinary urgency Musc Reports back pain (chronic, over the lower back), Reports arthralgias (over the left shoulder and left wrist), Reports neck pain (chronic) and Reports radiating pain into limb (left arm) Skin/Breast Denies rash Neuro Denies dizziness, Denies headache(s) and Denies paresthesias Endo Reports fatigue and Denies palpitations Jose/Lymph Denies easy bruising Physical exam (Primary Care) Vital Signs: Last Vital Signs Pulse 75 05/07/24 09:29 BP 102/66 05/07/24 09:29 Pulse Ox 97 05/07/24 09:29 Oxygen Delivery Method Room Air 05/07/24 09:29 BMI result Body Mass Index 21.1 Tobacco/Smoking Status: Tobacco use Status Tobacco use date assessed 05/07/24 05/07/24 09:33 Patient Tobacco Use Status Former Tobacco user 05/07/24 09:33 e-Cigarette/Vaping Use Never Used 05/07/24 09:33 PHQ-9: PHQ-9 Score PHQ-9: Total score 15 05/07/24 10:18 Depression Screening Interpretation: Positive Depression Screening Follow-up: Existing condition, In treatment, New Medication prescribed and Change in Medication (dose increase) Thrive Assessment: Date of Thrive Assessment Date Thrive assessed 05/07/24 05/07/24 09:33 Currently or been in a relationship where the following occur: No concerns reported Const General: no acute distress and alert HENMT Ears: TM normal on the left and TM abnormal perforated without discharge on the right; not with effusion and not erythematous Face and sinus: Yes sinus tenderness (R>L) Throat: Yes posterior oropharynx normal and Yes tonsils normal (no TP congestion) Neck Neck: Yes no lymphadenopathy and Yes supple Thyroid: Thyroid normal Resp Auscultation: clear to auscultation bilaterally, no rales and no wheezes Cardio Rate: regular rate Rhythm: regular rhythm Heart sounds: no murmurs GI Palpation (GI): Soft to palpation and nontender Auscultation: normal bowel sounds General: Yes no CVA tenderness Back/Spine/Pelvis Back: no CVA tenderness Cervical Spine: Cervical spine tenderness Thoracic/Lumbar Spine: paraspinal muscle tenderness bilaterally in the lower thoracic and lumbar spinal tenderness Sacroiliac joints: on the left tender to palpation Skin Rashes: no rashes Extrem General: Yes no clubbing, cyanosis or edema Left upper extremity: wrist ((+) tenderness) Coding Level of Care Code Est Pt Level 4 (40588) Diagnoses Acute non-recurrent frontal sinusitis J01.10 Sinusitis location: frontal Chronicity: acute Recurrence: non-recurrent Early satiety R68.81 Gastritis without bleeding, unspecified chronicity, unspecified gastritis type K29.70 Gastritis type: unspecified gastritis Chronicity: unspecified Gastritis bleeding: without bleeding Pure hypercholesterolemia E78.00 Migraine without status migrainosus, not intractable, unspecified migraine type G43.909 Migraine type: unspecified Status migrainosus presence: without status migrainosus Intractability: not intractable Reflex sympathetic dystrophy of left upper extremity G90.512 Cervical spondylosis M47.812 Osteoarthritis of spine with radiculopathy, lumbar region M47.26 Arthritis of carpometacarpal (CMC) joint of left thumb M18.12 Allergic rhinitis, unspecified seasonality, unspecified trigger J30.9 Allergic rhinitis trigger: unspecified Allergic rhinitis seasonality: unspecified Anxiety F41.9 Episode of recurrent major depressive disorder, unspecified depression episode severity F33.9 Depression Type: major depressive disorder Major depression recurrence: recurrent Active/Remission status: currently active Major depression episode severity: unspecified Additional Codes PHQ-9 - 17398 - PHQ-9 Billing: Yes ([id number]) Assessment & Plan Assessment & Plan (1) Sinusitis: Code(s): J32.9 - Chronic sinusitis, unspecified Category: Medical Qualifiers: Sinusitis location: frontal Chronicity: acute Recurrence: non-recurrent Qualified Code(s): J01.10 - Acute frontal sinusitis, unspecified Plan: Will start patient empirically on Azithromycin QD x 5 days - she has responded well to this in the past and is allergic to Amoxicillin and Sulfas, which would be the first 2 Abx of choice for sinus and respiratory infections (2) Early satiety: Code(s): R68.81 - Early satiety Category: Medical Plan: Upper GI series done last year revealed findings suggestive of GERD, achalasia and gastritis She was referred to and seen by GI a few months ago for her GI symptoms and she was sent for additional testing for further evaluation, including labs, abdominal US, gastric emptying time and EGD For unclear reasons, she has not yet been scheduled for her EGD Follow up with GI as scheduled (3) Gastritis: Code(s): K29.70 - Gastritis, unspecified, without bleeding Category: Medical Qualifiers: Gastritis type: unspecified gastritis Chronicity: unspecified Gastritis bleeding: without bleeding Qualified Code(s): K29.70 - Gastritis, unspecified, without bleeding Plan: Reinforced dietary restrictions Continue Pantoprazole 40 mg QD She is now seeing GI for further evaluation and management - will likely benefit from EGD for further clarification of her symptoms (4) Pure hypercholesterolemia: Code(s): E78.00 - Pure hypercholesterolemia, unspecified Category: Medical Plan: Patient was not able to get her follow-up labs done prior to her appointment today - states that she will try to get these done MANDI Reinforced low-cholesterol diet Continue Praluent injections 75 mg SQ every 2 weeks Will recheck her labs and fasting lipids again in 3 months for follow-up (5) Migraine: Code(s): G43.909 - Migraine, unspecified, not intractable, without status migrainosus Category: Medical Qualifiers: Migraine type: unspecified Status migrainosus presence: without status migrainosus Intractability: not intractable Qualified Code(s): G43.909 - Migraine, unspecified, not intractable, without status migrainosus Plan: Reinforced avoidance of all potential migraine triggers Continue Sumatriptan 50 mg PRN (6) Reflex sympathetic dystrophy of left upper extremity: Code(s): G90.512 - Complex regional pain syndrome I of left upper limb Category: Medical Plan: Patient states that her chronic arm pain remains adequately controlled on her current Rx (7) Cervical spondylosis: Comment: S/P C5-C6 ACDF a couple of years ago - neck still feels sore frequently but left arm weakness has improved with surgery Code(s): M47.812 - Spondylosis without myelopathy or radiculopathy, cervical region Category: Medical Plan: Continue Cyclobenzaprine 10 mg 3 times a day as needed (8) Osteoarthritis of spine with radiculopathy, lumbar region: Code(s): M47.26 - Other spondylosis with radiculopathy, lumbar region Category: Medical Plan: Reinforced activity and weight-lifting restrictions She could not tolerate physical therapy in the past; cortisone injections in the past at [facility] have helped temporarily She has also received epidural injections from [facility] for a few months a couple of years ago, with variable results She was seen by Dr. Darien Monroe at [facility] in the past and also had a couple of SI joint injections that she states helped only temporarily She was then referred to Dr. Salvador Hurt in [place] and underwent MIS fixation of left sacroiliac joint for stabilization on 02/28/22, followed by physical therapy when she was cleared by her surgeon for rehab States that the surgery helped her somewhat but we have not received any further updates on her condition via correspondence or OV notes from her doctors in [place] since her surgery Reports that her pain seems to have gotten worse again a few months after her surgery and her symptoms have persisted since Continue Hydrocodone-Acetaminophen 7.5-325 mg 1 tablet 4 times a day as needed for increased pain (9) Arthritis of carpometacarpal (CMC) joint of left thumb: Code(s): M18.12 - Unilateral primary osteoarthritis of first carpometacarpal joint, left hand Category: Medical Plan: MRI of the left wrist done last year revealed (+) severe OA changes in the wrist Follow up with orthopedics as scheduled (10) Allergic rhinitis: Code(s): J30.9 - Allergic rhinitis, unspecified Category: Medical Qualifiers: Allergic rhinitis trigger: unspecified Allergic rhinitis seasonality: unspecified Qualified Code(s): J30.9 - Allergic rhinitis, unspecified Plan: Continue Fluticasone 50 mcg nasal spray QD PRN (11) Anxiety: Code(s): F41.9 - Anxiety disorder, unspecified Category: Medical Plan: Continue Lorazepam 1 mg 4 times a day as needed (12) Depression: Code(s): F32.9 - Major depressive disorder, single episode, unspecified Category: Medical Qualifiers: Depression Type: major depressive disorder Major depression recurrence: recurrent Active/Remission status: currently active Major depression episode severity: unspecified Qualified Code(s): F33.9 - Major depressive disorder, recurrent, unspecified Plan: Will increase her Citalopram from 20 mg to 40 mg once a day Will start her additionally on Mirtazapine 7.5 mg Q HS Follow-up with Psychiatry as scheduled Plan Follow up in 3 months Orders: Orders Comprehensive [place]. Panel Fast 3 Months E78.00 - Pure hypercholesterolemia, unspecified Lipid Panel 3 Months E78.00 - Pure hypercholesterolemia, unspecified Medications: New azithromycin take 500 mg today (day 1), then 250 mg for 4 days (days 2-5) PO 6 tabs 0RF mirtazapine 7.5 mg PO BEDTIME 30 days 30 tabs 3RF Changed From citalopram 20 mg PO DAILY 90 days 90 tabs 3RF To citalopram 40 mg PO DAILY 90 days 90 tabs 1RF
== END 2024-05-07 10:28 | disposition home or self-care (01) ==
PROVIDERS: PCP Internal Medicine; Visit Provider Internal Medicine
DX: J01.10 Acute frontal sinusitis, unspecified (principal); R68.81 Early satiety; K29.70 Gastritis, unspecified, without bleeding; F33.9 Major depressive disorder, recurrent, unspecified; E78.00 Pure hypercholesterolemia, unspecified; G43.909 Migraine, unspecified, not intractable, without status migrainosus; G90.512 Complex regional pain syndrome I of left upper limb; M47.812 Spondylosis without myelopathy or radiculopathy, cervical region; M47.26 Other spondylosis with radiculopathy, lumbar region; M18.12 Unilateral primary osteoarthritis of first carpometacarpal joint, left hand; J30.9 Allergic rhinitis, unspecified; F41.9 Anxiety disorder, unspecified

== ENCOUNTER → 2024-05-07 09:28 | Outpatient (BNVA) | payer MEDICARE, MEDICAID, SELFPAY | PROVIDERS: PCP Internal Medicine; Visit Provider Internal Medicine | DX: J01.10 Acute frontal sinusitis, unspecified (principal); R68.81 Early satiety; K29.70 Gastritis, unspecified, without bleeding; E78.00 Pure hypercholesterolemia, unspecified; G43.909 Migraine, unspecified, not intractable, without status migrainosus; M47.812 Spondylosis without myelopathy or radiculopathy, cervical region; G90.512 Complex regional pain syndrome I of left upper limb; M47.26 Other spondylosis with radiculopathy, lumbar region; M18.12 Unilateral primary osteoarthritis of first carpometacarpal joint, left hand; J30.9 Allergic rhinitis, unspecified; F41.9 Anxiety disorder, unspecified; F33.9 Major depressive disorder, recurrent, unspecified | CPT/HCPCS: 96127; 99212 ==

== ENCOUNTER 2024-06-15 08:53 | Outpatient (AMB) | payer MEDICARE, MEDICAID, SELFPAY ==
[2024-06-15 08:57] VITALS: BP 118/60; PULSE 75; BMI 23.1
--- NOTE | 2024-06-15 08:57 | MHC.OFFVIS ---
Vital Signs 06/15/24 08:57 Height 5 ft 6 in Weight 143 lb 4.807 oz BMI 23.1 BP 118/60 Blood Pressure Location Lt brachial Position Sitting Pulse 75 Pulse Source Monitor Intake Visit Reasons: r/s 08/21/23 6 mos followup after echo Crane Engineer Required: No Paint Stock Clerk: Paint Stock Clerk Present Allergies amoxicillin [Amoxicillin] Allergy (Severe, Verified 06/15/24 09:01) RASH Sulfa (Sulfonamide Antibiotics) Allergy (Severe, Verified 06/15/24 09:01) RASH pravastatin Allergy (Unknown, Verified 06/15/24 09:01) myalgia pregabalin Allergy (Unknown, Verified 06/15/24 09:01) Muscle cramps atorvastatin Adverse Reaction (Unknown, Verified 06/15/24 09:01) leg pain and swelling ezetimibe [Zetia] Adverse Reaction (Unknown, Verified 06/15/24 09:01) joint pain oxycodone [Percocet] Adverse Reaction (Unknown, Verified 06/15/24 09:01) nausea, upset stomach, increased headaches rosuvastatin Adverse Reaction (Unknown, Verified 06/15/24 09:01) myalgia Medication List - Last Reconciled 06/15/24 by Kalie Jeff ENVIRONMENTAL LAWYER-C alirocumab (Praluent Pen) 75 mg subcut Q2W citalopram 40 mg PO DAILY 90 days hydrocodone-acetaminophen 7.5-325 mg 1 tab PO .4x a day PRN 28 days lorazepam 1 mg PO QID PRN 30 days mirtazapine 7.5 mg PO BEDTIME 30 days sennosides (Senna Laxative) 8.6 mg PO BEDTIME sumatriptan succinate 100 mg PO as directed as needed. may repeat one more time if needed; 30 days zolpidem 10 mg PO BEDTIME PRN NS HPI HPI r/s 08/21/23 6 mos followup after echo: Details: Dulce is a 54-year-old female past medical history of family history of CAD/MIs, statin intolerance, hyperlipidemia who presents for follow-up. Her last prior visit to our office was 05/23/2023. Today she reports that she has been doing well over the last year. She was having some issues with depression but her medications were adjusted and she is feeling better. She had lost significant weight but is now gaining it back. She has no chest discomfort at rest or with activity. No shortness of breath, heart palpitations, lightheadedness. She has good activity tolerance. She has been taking her Praluent as directed. Her friend is present. [facility] Medical History (Updated 06/15/24 @ 10:30 by Kalie Jeff ENVIRONMENTAL LAWYER-C) Family history of myocardial infarction Arthritis of carpometacarpal (CMC) joint of left thumb Gastritis Osteoarthritis of spine with radiculopathy, lumbar region Sprain of ulnar collateral ligament Acute bilateral thoracic back pain Overweight (BMI 25.0-29.9) Depression Anxiety Allergic rhinitis Reflex sympathetic dystrophy of left upper extremity Cervical spondylosis Primary osteoarthritis of right shoulder Pure hypercholesterolemia Migraine Surgical History History of cervical discectomy S/P JOLENE-BSO (total abdominal hysterectomy and bilateral salpingo-oophorectomy) History of carpal tunnel release History of removal of cyst History of colonoscopy History of repair of rotator cuff Family History Father Prostate cancer Mother Lung cancer Hypertension CVD (cardiovascular disease) Diabetes Chronic mental illness Maternal Grandmother Colon cancer Sister History of breast cancer, Onset Age: 64 Stroke Other Mental health problem Social History Housing: House Alcohol intake: never Patient Tobacco Use Status: Former Tobacco user e-Cigarette/Vaping Use: Never Used Second Hand Smoke Exposure: Yes service: No Current occupational status: employed 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 Cognitive needs: No Hearing needs: No Vision needs: Yes Review of Systems Const All systems reviewed & are unremarkable except as noted in HPI and below ENT Denies dizziness Card Denies chest pain, Denies chest pain at rest, Denies chest pain with activity, Denies rapid heart rate, Denies pedal edema, Denies edema, Denies leg edema, Denies lightheadedness, Denies palpitations, Denies dyspnea, Denies dyspnea on exertion and Denies orthopnea Resp Denies cough, Denies dyspnea and Denies dyspnea on exertion GI Denies hematochezia and Denies change in stool character Musc Details: chronic back pain Reports abnormal gait (uses walker), Denies limited range of motion, Denies muscle cramps, Denies muscle weakness, Denies numbness, Denies radiating pain into limb, Denies stiffness and Denies tingling Neuro Reports abnormal gait (uses walker), Denies dizziness, Denies numbness and Denies tingling Endo Denies palpitations Physical Exam Vital Signs: Last Vital Signs Pulse 75 06/15/24 08:57 BP 118/60 06/15/24 08:57 BMI result Body Mass Index 23.1 Const General: cooperative, healthy appearing, comfortable and no acute distress Orientation/consciousness: patient oriented x3 Neck Other: No carotid bruit noted on exam Neck: Yes normal visual inspection Resp Effort & Inspection: normal respiratory effort Auscultation: clear to auscultation bilaterally, no rales, no rhonchi and no wheezes Cardio Rate: regular rate Rhythm: regular rhythm Heart sounds: S1 normal heart sound present, S2 normal heart sound present, no gallops, no murmurs and no rubs GI Inspection: Yes normal to inspection Skin General skin exam: no rashes or lesions noted Neuro General: patient oriented x3 Extrem General: Yes normal to inspection, No no pedal edema and No calf tenderness Psych Appearance: grossly normal Mental Status: mental status grossly normal Speech and movement: Normal speech and movement present Office Procedures EKG Details: Today, read by me, SR, rate 75, QTc 422ms [id number], Complete Assessment & Plan Assessment & Plan (1) Pure hypercholesterolemia: Code(s): E78.00 - Pure hypercholesterolemia, unspecified Category: Medical Plan: Patient with history of hyperlipidemia. She has no known CAD but does have cardiac risk factors of hyperlipidemia and family history.-she describes MIs in her mother and maternal uncles, brother and she reports her sister had a stroke from carotid disease last year. Lena LDL goal for her will be less than 100. She is intolerant to statins and has tried several in the past. Last year she was started on Praluent and is tolerating it well. Labs done 09/09/2023 showed LDL 58. She is due for upcoming labs including fasting lipids. Recommend that she continue on Praluent, keep weight controlled, follow heart healthy diet and exercise routinely. Signs and symptoms of angina reviewed. Cardiology follow-up in 1 year, sooner if needed (2) Statin intolerance: Code(s): Z78.9 - Other specified health status Category: Medical Plan: As above (3) Family history of myocardial infarction: Code(s): Z82.49 - Family history of ischemic heart disease and other diseases of the circulatory system Category: Medical Plan: As above Plan Time spent on chart review, documentation, interview and assessment Coding Level of Care Code Est Pt Level 3 (88215) Complex EM visit Add On G2211 Diagnoses Pure hypercholesterolemia E78.00 Statin intolerance Z78.9 Family history of myocardial infarction Z82.49 CPT Codes EKG - CPT: 33020-[id number], Complete ([id number]) Time Spent (min) 24
== END 2024-06-15 09:24 | disposition home or self-care (01) ==
PROVIDERS: PCP Internal Medicine; Visit Provider Nurse Practitioner Family
DX: E78.00 Pure hypercholesterolemia, unspecified (principal); Z78.9 Other specified health status; Z82.49 Family history of ischemic heart disease and other diseases of the circulatory system
CPT/HCPCS: 93010; 99213; G2211

== ENCOUNTER → 2024-06-15 08:53 | Outpatient (BNVA) | payer MEDICARE, MEDICAID, SELFPAY | PROVIDERS: PCP Internal Medicine; Visit Provider Nurse Practitioner Family | DX: E78.00 Pure hypercholesterolemia, unspecified (principal); Z78.9 Other specified health status; Z82.49 Family history of ischemic heart disease and other diseases of the circulatory system | CPT/HCPCS: 93005; 99212 ==

== ENCOUNTER 2024-08-17 08:28 | Outpatient (REF) | payer MEDICARE, MEDICAID, SELFPAY ==
[2024-08-17 08:47] LABS: MANUAL DIFF FLAG NO
--- OUTSIDE RECORDS SUMMARY | 2024-08-17 08:55 | XMS_ITS | Encounter Summary ---
Author Organization [facility] Address [address] [place] [address] Care Team Providers Care Practice Or Student Teacher Name Role Phone Darien Monroe MD Unavailable [phone] Claude Steele MD Primary Care Provider [phone] Salvador Hurt MD Unavailable [phone] Encounter Details Date Type Department Care Team (Late st Contact Info) Description 03/26/2022 [facility] Neurosurgery [address] [phone] Salvador Hurt MD [address] [place] [address] SI (sacroiliac) joint dysfunction Social History Tobacco Use Types Packs/Day Years Used Date Smoking Tobacco: Former Cigarettes 1 2013 Smokeless Tobacco: Never Alcohol Use Standard Drinks/Week Comments Not Currently 0 (1 standard drink = 0.6 oz pur e alcohol) AUDIT-C Answer Date Recorded Q1: How often do you have a drink containing alcohol? Never 02/28/2022 Q2: How many drinks containi ng alcohol do you have on a typical day when you are drinking? Patient does not drink Q3: How often do you have si x or more drinks on one occasion? Never 02/28/2022 Sex and Gender Information Value Date Recorded Sex Assigned at Not on file Gender Identity Not on file Sexual Orientation Not on file COVID-19 Exposure Response Date Recorded In the last 10 days, have yo u been in contact with someone who was confirmed or suspected to have Coronavirus/COVID-19? No / Unsure 03/19/2022 1:51 PM EST documented as of this encounter Plan of Treatment Not on file documented as of this encounter Visit Diagnoses Diagnosis SI (sacroiliac) joint dysfunction Nonallopathic lesion of sacral region, not elsewhere classified documented in this encounter Care Teams Practice Or Student Teacher Relationship Specialty Start Date End Date Claude Steele MD [address] [place] [address] Dr Samuel [address] [place] [address] PCP - General Internal Medicine 10/31/21 Darien Monroe MD [address] [place] [address] Physician Psychiatry, General 10/31/21 Salvador Hurt MD [address] [place] [address] [address] [place] [address] Surgery, Neurosurgery 02/08/22 documented as of this encounter
--- OUTSIDE RECORDS SUMMARY | 2024-08-17 08:55 | XMS_ITS | Encounter Summary ---
Author Organization [facility] Address [address] [place] [address] Care Team Providers Care Change Advisor Name Role Phone Darien Monroe MD Unavailable [phone] Claude Steele MD Primary Care Provider [phone] Salvador Hurt MD Unavailable [phone] Encounter Details Date Type Department Care Team (Late st Contact Info) Description 02/22/2022 Scanned Document [facility] Neurosurgery [address] [phone] [address] Social History Tobacco Use Types Packs/Day Years Used Date Smoking Tobacco: Former Cigarettes 2013 Smokeless Tobacco: Never Alcohol Use Standard Drinks/Week Comments Not Currently 0 (1 standard drink = 0.6 oz pur e alcohol) Sex and Gender Information Value Date Recorded Sex Assigned at Not on file Gender Identity Not on file Sexual Orientation Not on file COVID-19 Exposure Response Date Recorded In the last 10 days, have yo u been in contact with someone who was confirmed or suspected to have Coronavirus/COVID-19? No / Unsure 02/22/2022 1:43 PM EDT documented as of this encounter Plan of Treatment Not on file documented as of this encounter Visit Diagnoses Not on filedocumented in this encounter Care Teams Change Advisor Relationship Specialty Start Date End Date Claude Steele MD [address] [place] [address] Dr [address] [place] [address] PCP - General Internal Medicine 10/31/21 Darien Monroe MD [address] [place] [address] Physician Psychiatry, General 10/31/21 Salvador Hurt MD [address] [place] [address] Surgery, Neurosurgery 02/08/22 documented as of this encounter
--- OUTSIDE RECORDS SUMMARY | 2024-08-17 08:55 | XMS_ITS | Clinical Summary ---
Author Organization [employer] Address [address] [facility] 7 [place] [address] Care Team Providers Care Sales Support Coordinator Name Role Phone Unavailable Primary Care Provider Unavailabl e Allergies Active Allergy Reactions Criticality Noted Date Comments Amoxicillin Other,Rash,Unknown Low 04/27/2015 Latex 02/27/2022 Added based on information entered during case entry, please review and add reactions, type, and severity as needed Sulfa Antibiotics Rash,Unknown Low 04/27/2015 Medications zolpidem (Ambien) 10 MG tablet TAKE ONE TABLET BY MOUTH EVERY DAY NEEDED FOR SLEEP 4 Active HYDROcodone-jacky taminophen ([place]) 7.5-325 MG tablet TAKE ONE TABLET BY MOUTH FOUR TIMES A DAY NEEDED FOR PAIN Active LORazepam (Ativan) 2 MG tablet Lorazepam 10 mg Active cyclobenzaprine (Flexeril) 10 MG tablet Take 10 mg by mouth every 8 (eight) hours if needed. 2 Active Active Problems Problem Noted Date Diagnosed Date Severe dental caries 01/16/2024 Non-restorable tooth 01/16/2024 Anxiety 12/23/2023 Depression 12/23/2023 Migraines 12/23/2023 Rectal bleeding 12/23/2023 SI (sacroiliac) joint dysfunction 02/28/2022 Disorder of sacrum 09/13/2021 Social History Tobacco Use Types Packs/Day Years Used Date Smoking Tobacco: Never Passive Smoke Exposure: Never Smokeless Tobacco: Never Tobacco Cessation:Counseling Given: Not Answered Alcohol Use Standard Drinks/Week Comments Never 0 (1 standard drink = 0.6 oz pur e alcohol) Comments Unknown Sex and Gender Information Value Date Recorded Sex Assigned at Female 12/23/2023 8:34 AM EDT Legal Sex Female 8:21 AM EDT Gender Identity Female 12/23/2023 8:34 AM EDT Sexual Orientation Straight 12/23/2023 8: 34 AM EDT Last Filed Vital Signs Vital Sign Reading Time Taken Comments Blood Pressure 118/68 01/16/2024 7:50 AM EDT Pulse - - Temperature - - Respiratory Rate - - Oxygen Saturation - - Inhaled Oxygen Concentration - - Weight - - Height - - Body Mass Index - - Plan of Treatment Health Maintenance Due Date Last Done Comments CT Colonography 1968 Colonoscopy 1968 Colorectal Cancer Screening 1968 Dental Oral Exam 1968 Dental Prophylaxis 1968 Dental X-Ray: Full Mouth 1968 Depression Screening 1968 FIT DNA/Cologuard 1968 FIT 1968 FOBT 1968 HIV Screening 1968 SDOH Screening 1968 Sigmoidoscopy 1968 Alcohol/Substance Use Screening 1980 Hepatitis C Screening 1986 Hepatitis B Vaccines (1 of 3 - 19+ 3-dose series) 1987 Pap Smear 1989 Cervical Cancer Screening 1998 HPV/Cotest 1998 Mammogram 2008 Pneumococcal Vaccine: 50+ Years (1 of 1 - PCV) 2018 Zoster Vaccines (1 of 2) 2018 COVID-19 Vaccine (3 - 2023-2 5 season) 2024 09/18/2020, 08/21/2020 Influenza Vaccine (#1) 2024 03/08/2005 Dental X-Ray: Bitewings 12/23/2024 12/23/2023 Tobacco Screening 01/15/2025 01/16/2024 DTaP/Tdap/Td Vaccines (2 - T d or Tdap) 02/08/2026 02/09/2016 RSV Patients and Patients Aged 60 years or older (1 - 1-dose 75+ series) 2043 HIB Vaccines Aged Out No longer eligi ble based on patient's age to complete this topic HPV Vaccines Aged Out No longer eligi ble based on patient's age to complete this topic Hepatitis A Vaccines Aged Out No long er eligible based on patient's age to complete this topic IPV Vaccines Aged Out No longer eligi ble based on patient's age to complete this topic Meningococcal Vaccine Aged Out No jessica pavel eligible based on patient's age to complete this topic Pneumococcal Vaccine: Pediatrics (0 to 5 Years) and At-Risk Patients (6 to 49) Years) Aged Out No longer eligible b ased on patient's age to complete this topic RSV under 20 months Aged Out No longe r eligible based on patient's age to complete this topic Rotavirus Vaccines Aged Out No longer eligible based on patient's age to complete this topic Procedures Procedure Name Priority Date/Time Associated Diagnosis Comments BITEWING - SINGLE RADIOGRAPHIC IMAGE Routine 12/23/2023 11:30 AM EDT Dental caries Irreversible pulpitis Bruxism from Last 3 Months or Most Recently Relevant to Health Maintenance Insurance [facility] MEDICAID STAND ADULT
--- OUTSIDE RECORDS SUMMARY | 2024-08-17 08:55 | XMS_ITS | Encounter Summary ---
Author Organization [facility] Address [address] [place] [address] Care Team Providers Care Mcat Instructor Name Role Phone Darien Monroe MD Unavailable [phone] Claude Steele MD Primary Care Provider [phone] Salvador Hurt MD Unavailable [phone] Encounter Details Date Type Department Care Team (Late st Contact Info) Description 02/07/2022 Scanned Document [facility] Neurosurgery [address] [phone] Social History Tobacco Use Types Packs/Day Years Used Date Smoking Tobacco: Never Assessed Sex and Gender Information Value Date Recorded Sex Assigned at Not on file Gender Identity Not on file Sexual Orientation Not on file COVID-19 Exposure Response Date Recorded In the last 10 days, have yo u been in contact with someone who was confirmed or suspected to have Coronavirus/COVID-19? No / Unsure 02/08/2022 12:58 PM EDT documented as of this encounter Plan of Treatment Not on file documented as of this encounter Visit Diagnoses Not on filedocumented in this encounter Care Teams Mcat Instructor Relationship Specialty Start Date End Date Claude Steele MD [address] [place] [address] [place] [address] PCP - General Internal Medicine 6/28/22 Darien Monroe MD [address] [place] [address] Physician Psychiatry, General 10/31/21 Salvador Hurt MD [address] [place] [address] Surgery, Neurosurgery 02/08/22 documented as of this encounter
--- OUTSIDE RECORDS SUMMARY | 2024-08-17 08:55 | XMS_ITS | Encounter Summary ---
Author Organization [facility] Address [address] [place] [address] Care Team Providers Care Centrifugal Drier Operator Name Role Phone Darien Monroe MD Unavailable [phone] Claude Steele MD Primary Care Provider [phone] Salvador Hurt MD Unavailable [phone] Encounter Details Date Type Department Care Team (Late st Contact Info) Description 04/10/2022 Scanned Document [facility] Neurosurgery [address] [phone] Neurosurgery, Scan Social History Tobacco Use Types Packs/Day Years [...] on filedocumented in this encounter Care Teams Centrifugal Drier Operator Relationship Specialty Start Date End Date Claude Steele MD [address] [place] [address] PCP - General Internal Medicine 10/31/21 Darien Monroe MD [address] [place] [address] Physician Psychiatry, General 10/31/21 Salvador Hurt MD [address] [place] [address] Surgery, Neurosurgery 02/08/22 documented as of this encounter
--- OUTSIDE RECORDS SUMMARY | 2024-08-17 08:55 | XMS_ITS | Encounter Summary ---
Author Organization [facility] Address [address] [place] [address] Care Team Providers Care Perforator Name Role Phone Darien Monroe MD Unavailable [phone] Claude Steele MD Primary Care Provider [phone] Salvador Hurt MD Unavailable [phone] Encounter Details Date Type Department Care Team (Late st Contact Info) Description 02/22/2022 Scanned Document [facility] Neurosurgery [address] [phone] Salvador Hurt MD [address] [place] [address] Social History Tobacco Use Types Packs/Day Years [...] on filedocumented in this encounter Care Teams Perforator Relationship Specialty Start Date End Date Claude Steele MD [address] [place] [address] Dr Samuel [address] [place] [address] PCP - General Internal Medicine 10/31/21 Darien Monroe MD [address] [place] [address] Physician Psychiatry, General 10/31/21 Salvador Hurt MD [address] [place] [address] [address] [place] [address] Surgery, Neurosurgery 02/08/22 documented as of this encounter
--- OUTSIDE RECORDS SUMMARY | 2024-08-17 08:55 | XMS_ITS | Patient Health Record ---
Author Organization [facility] Address [address] [place] [address] Care Team Providers Care Contact Lens Blocker Name Role Phone Cedric CRUZ, [place] Primary Care Provider Tuan Mata Jr [phone] Allergies Allergen (clinical drug ingredient) Drug/Non Drug Allergy documented on EMR Reaction Allergy Type Onset Date Status Sulfa Unknown Drug Allergy Active Amoxil Unknown Drug Allergy Active Reason For Referral No Information Medications Medication SIG (Take, Route, Fr equency, Duration) Notes Start Date End Date Status Lorazepam 10 mg Acti ve vicodin 750 mg Activ e Flexeril 10 mg Activ e Prozac Active Suprep Bowel Prep 1 as directed Orally 1 for 1 dose 04/27/2015 Active Problems Problem Type SNOMED Code ICD Code Onset Dates Problem Status W/U Status Risk Notes Problem [id number] Rectal bleeding (K62.5) Active confirmed Plan Of Treatment Future Test Test Name Order Date COLONOSCOPY 04/27/2015 Insurance Providers Payer Name Payer Address Payer Phone Subscriber Number Group Number Insured Name Patient Relationship to Insured Coverage Start Date Coverage End Date [facility] [address] [place], [place] [id number] [phone] [id number] DARELL MENENDEZ Self - patient is the insured Medical (General) History Medical History History ICD Code colonoscopy 02-15-2010 colitis Denies [place],DM,CVA,Lung disease,renal dise ase ovarian cysts Surgical History Surgery Date(Month/Year) right shoulder surgery hysterectomy 2011
--- OUTSIDE RECORDS SUMMARY | 2024-08-17 08:55 | XMS_ITS | Clinical Summary ---
Author Organization [address] [facility] Address [address] [place] [address] Phone Care Team Providers Care Gate Manager Name Role Phone Claude Steele MD Primary Care Provider Allergies Active Allergy Reactions Criticality Noted Date Comments Penicillins High 08/08/2005 Amoxicillin 125 Mg [penicillins] Other Reaction(s): Rash/Dermatitis Sulfa (Sulfonamide Antibiotics) High 08/08/2005 Other Reaction(s): Rash/Dermatitis Medications medroxyPROGESTER one (Depo-Provera) 150 mg/mL injection 150 mg IM Q 3 months 09/07/2008 Active Active Problems Problem Noted Date Diagnosed Date Lumbar radiculopathy 05/11/2021 Primary localized osteoarthrosis of shoulder reg ion 04/23/2006 Overview (06/12/2024): IMO update Known medical problems 04/23/2006 Overview (06/12/2024): Other affections of shoulder region, not elsewhere classified Immunizations Name Administration Dates Next Due Influenza trivalent, with pr eservative (Fluzone; Afluria) 6mo and older 03/08/2005 Social History Tobacco Use Types Packs/Day Years Used Date Smoking Tobacco: Never Assessed Comments Unknown Sex and Gender Information Value Date Recorded Sex Assigned at Not on file Legal Sex Female 1:11 PM EST Gender Identity Not on file Sexual Orientation Not on file Plan of Treatment Upcoming Encounters Date Type Department Care Team ([facility] Contact Info) Description 08/19/2024 9:45 AM EDT Consult Orthopedic Surgery [facility] [address] [facility] [address] [place] [address] Ned Meier, DPM [address] [facility] [address] [place] [address] Health Maintenance Due Date Last Done Comments Breast Cancer Screening 1968 DTaP,Tdap,and Td Vaccines (1 - Tdap) 1987 Hepatitis B Vaccines (1 of 3 - 19+ 3-dose series) 1987 Cervical Cancer Screening: P ap Smear 09/08/2011 09/07/2008, 09/07/2008 Pneumococcal Vaccine: 50+ Years (1 of 1 - PCV) 2018 Zoster Vaccines (1 of 2) 2018 Colorectal Cancer Screening: Colonoscopy 04/03/2022 Depression Screening 04/03/2022 HIV Screening 04/03/2022 Hepatitis C Screening 04/03/2022 Medicare Annual Wellness Visit 04/03/2022 Social Influencers of Health Screening 04/03/2022 COVID-19 Vaccine ( - 2023-2 5 season) 2024 Influenza Vaccine (Season Ended) 2025 03/08/2005 HIB Vaccines Aged Out No longer eligi [...] on patient's age to complete this topic MMR Vaccines Aged Out No longer eligi ble based on patient's age to complete this topic Meningococcal ACWY Vaccine Aged Out N o longer eligible based on patient's age to complete this topic Meningococcal B Vaccine Aged Out No l onger eligible based on patient's age to complete this topic Pneumococcal Vaccine: Pediatrics (0 to 5 Years) and At-Risk Patients (6 to 64 Years) Aged Out No longer eligible b ased on patient's age to complete this topic RSV Immunization Patients Under 20 months Aged Out No longer eligible b ased on patient's age to complete this topic Varicella Vaccines Aged Out No longer eligible based on patient's age to complete this topic Procedures Procedure Name Priority Date/Time Associated Diagnosis Comments HPV Routine 09/07/2008 from Last 3 Months or Most Recently Relevant to Health Maintenance Results * Cervical Cancer Screening: HPV (09/07/2008) Cervical Cancer Screening: HPV no interpreta tion,abstr acted Historical Provider HEALTH MAINTENANCE Final Result from Last 3 Months or Most Recently Relevant to Health Maintenance Insurance MEDICAID - [place] MEDICARE Care Teams Gate Manager Relationship Specialty Start Date End Date Claude Steele MD [address] [place] [address] [address] [place], [place] PCP - General Internal Medicine 12/30/17
--- OUTSIDE RECORDS SUMMARY | 2024-08-17 08:55 | XMS_ITS | Clinical Summary ---
Author Organization [facility] Address [address] [place] [address] Care Team Providers Care Women'S Garment Fitter Name Role Phone Darien Monroe MD Unavailable [phone] Claude Steele MD Primary Care Provider [phone] Salvador Hurt MD Unavailable [phone] Allergies Active Allergy Reactions Criticality Noted Date Comments Amoxicillin Rash/Dermatitis,Othe r (See Comments) Low 04/27/2015 Latex 02/27/2022 Added based on information entered during case entry, please review and add reactions, type, and severity as needed Sulfa Antibiotics Rash/Dermatitis Low 04/27/2015 Medications Medication Sig Dispensed Refills Start Date End Date Status citalopram (CeleXA) 20 MG tablet 1 tablet (20 mg total) nightly. 01/07/2022 Active cyclobenzaprine (FLEXERIL) 10 MG tablet Take 1 tablet (10 mg total) by mouth 3 times daily (every 8 hours) as needed. 12/19/2021 Active LORazepam (ATIVAN) 1 MG tablet Take 1 tablet (1 mg total) by mouth 4 times daily (every 6 hours) as needed. 12/19/2021 Active SUMAtriptan (IMITREX) 100 MG tablet TAKE 1 TABLET BY MOUTH DIRECTED NEEDED FOR 30 DAYS. MAY REPEAT 1 MORE TIME IF NEEDED 12/29/2021 Active senna (SENOKOT) 8.6 MG Tab tablet Take 2 tablets by mouth nightly. Active acetaminophen (TYLENOL) 325 MG tabletIndications:SI (sacroiliac) joint dysfunction Take 2 tablets (650 mg total) by mouth 4 (four) times a day as needed for mild pain. 240 tablet 03/01/2022 Active HYDROcodone-acetamin ophen (NORCO) 7.5-325 mg tablet Take 1 tablet by mouth 4 (four) times a day as needed. for pain 03/09/2022 Active oxyCODONE (ROXICODONE) 5 MG immediate release tabletIndications:SI (sacroiliac) joint dysfunction Take 1 tablet (5 mg total) by mouth 4 times daily (every 6 hours) as needed for severe pain or moderate pain. Max Daily Amount: 20 mg 21 tablet 2022 Active Active Problems Problem Noted Date Diagnosed Date SI (sacroiliac) joint dysfunction 02/28/2022 Disorder of sacrum Depression Migraines Anxiety Family History Medical History Relation Name Comments No Known Problems Brother Hypertension Father Prostate cancer Father Alzheimer's disease Mother Diabetes Mother Heart disease Mother Kidney disease Mother Lung cancer Mother Breast cancer Sister 1 Colitis Sister 1 Diabetes Sister 2 Hypertension Sister 2 Relation Name Status Comments Brother Alive Father Mother Sister 1 Alive Sister 2 Alive Social History Tobacco Use Types Packs/Day Years Used Date Smoking Tobacco: Former Cigarettes 1 2013 Smokeless Tobacco: Never Tobacco Cessation:Counseling Given: Not Answered Alcohol Use Standard Drinks/Week Comments Not Currently [...] on file Sexual Orientation Not on file Last Filed Vital Signs Vital Sign Reading Time Taken Comments Blood Pressure 150/71 05/28/2022 1:43 PM EST Pulse 79 05/28/2022 1:43 PM EST Temperature 36.7 ??C (98 ??F) 05/28/2022 1:43 PM EST Respiratory Rate 16 03/01/2022 8:50 AM EDT Oxygen Saturation 100% 05/28/2022 1:43 PM EST Inhaled Oxygen Concentration - - Weight 61.2 kg (135 lb) 08/20/2022 1:16 PM EDT Height 163.8 cm (5' 4.5 ) 08/20/2022 1:16 PM EDT Body Mass Index 22.81 08/20/2022 1:16 PM EDT Plan of Treatment Health Maintenance Due Date Last Done Comments Hepatitis C Virus Screening 1968 HIV Screening 1981 DTaP/Tdap/Td Vaccines (1 - Tdap) 1987 Hepatitis B Vaccines (1 of 3 - 19+ 3-dose series) 1987 Pap Smear (Ages 21-65) 1989 Mammogram 2008 Colonoscopy 2013 Lung Cancer Screening (LDCT) 2018 Pneumococcal Vaccines 50+ (1 of 1 - PCV) 2018 Zoster (Shingles) Vaccine (1 of 2) 2018 Influenza Vaccine 12/05/2023 COVID-19 Vaccine (3 - 2023-2 5 season) 2024 09/18/2020, 08/21/2020 Pneumococcal Vaccine: Pediatric (0-5 Years) and At-Risk Patients (6 to 49 Years) Aged Out No longer eligible b ased on patient's age to complete this topic Medical Devices Implanted Type Area Tobacco Warehouse Manager Device Identifier Shelf Expiration Date Model / Serial / Lot [id number]-90 System Spinal Fixation 50mm 7mm Ifuse-3d Implant 3ang - Sn/A Implanted:Qty: 1 on 02/28/2022 by Salvador Hurt MD at [facility] Spine Left: Sacrum [employer] 03/14/2026 7050M-90 / N/A / [id number] System Spinal Fixation 45mm 7mm Ifuse Implant Sys 3ang - Sn/A Implanted:Qty: 1 on 02/28/2022 by Salvador Hurt MD at [facility] Spine Left: Sacrum [employer] 02/10/2026 7045M-90 / N/A / [id number] System Spinal Fixation 45mm 7mm Ifuse Implant Sys 3ang - Sn/A Implanted:Qty: 1 on 02/28/2022 by Salvador Hurt MD at [facility] Spine Left: Sacrum [employer] 02/20/2026 [id number]-90 / N/A / [id number] Advance Directives * Full Code (Latest Code Status on File) Date Activated Date Inactivated Comments 02/28/2022 12:38 PM * Full Code Date Activated Date Inactivated Comments 02/28/2022 7:53 AM 02/28/2022 12:38 PM Care Teams Women'S Garment Fitter Relationship Specialty Start Date End Date Claude Steele MD [address] [place] [id number] PCP - General Internal Medicine 10/31/21 Darien Monroe MD [address] [place] [address] Physician Psychiatry, General 10/31/21 Salvador Hurt MD [address] [place] [id number] Surgery, Neurosurgery 02/08/22
--- OUTSIDE RECORDS SUMMARY | 2024-08-17 08:55 | XMS_ITS | Encounter Summary ---
Author Organization [facility] Address [address] [place] [address] Care Team Providers Care Telephone Information Supervisor Name Role Phone Darien Monroe MD Unavailable [phone] Claude Steele MD Primary Care Provider Salvador Hurt MD Unavailable [phone] Encounter Details Date Type Department Care Team (Late st Contact Info) Description 01/26/2022 Scanned Document [facility] Neurosurgery [address] [phone] Neurosurgery, Scan Social History Tobacco Use Types [...] suspected to have Coronavirus/COVID-19? No / Unsure 01/15/2022 3:24 PM EDT documented as of this encounter Plan of Treatment Not on file documented as of this encounter Visit Diagnoses Not on filedocumented in this encounter Care Teams Telephone Information Supervisor Relationship Specialty Start Date End Date Claude Steele MD [address] [place] [address] [place] [address] PCP - General Internal Medicine 10/31/21 Darien Monroe MD [address] [place] [address] Physician Psychiatry, General 10/31/21 Salvador Hurt MD [address] [address] Surgery, Neurosurgery 02/08/22 documented as of this encounter
--- OUTSIDE RECORDS SUMMARY | 2024-08-17 08:55 | XMS_ITS | Encounter Summary ---
Author Organization [facility] Address [address] [place] [address] Care Team Providers Care Paramedical Aide Name Role Phone Darien Monroe MD Unavailable [phone] Claude Steele MD Primary Care Provider [phone] Salvador Hurt MD Unavailable [phone] Reason for Visit * Reason Comments Medication Problem Pharmacy needed auth Encounter Details Date Type Department Care Team (Late st Contact Info) Description 03/01/2022 Telephone [facility] Neurosurgery [address] [phone] Jluis Bianchi, PASammC [address] [id number] Medication Problem (Pharmacy needed auth) Social History Tobacco Use Types Packs/Day Years [...] suspected to have Coronavirus/COVID-19? No / Unsure 02/28/2022 6:28 AM EDT documented as of this encounter Miscellaneous Notes * Telephone Encounter - Neri Rangel MA - 03/01/2022 4:54 PM EDT Acknowledged, I spoke with Dyana again and informed her of this. She express understanding and will inform Dulce about this. * Telephone Encounter - Jluis Bianchi PA-C - 03/01/2022 4:52 PM EDT Spoke with the pharmacy. Prescription requires a prior authorization that I won't be able to obtainuntil tomorrow. In the meantime, patient can pay for this prescription and we will contact insurance company for refills. * Telephone Encounter - Jluis Bianchi PA-C - 03/01/2022 4:40 PM EDT Please confirm that her pharmacy is [facility]. We cannot prescribe to Willy in [facility]. documented in this encounter Plan of Treatment Not on file documented as of this encounter Visit Diagnoses Not on filedocumented in this encounter Care Teams Paramedical Aide Relationship Specialty Start Date End Date Claude Steele MD [address] [place] [address] [place] [address] PCP - General Internal Medicine 10/31/21 Darien Monroe MD [address] [place] [address] Physician Psychiatry, General 10/31/21 Salvador Hurt MD [address] [address] Surgery, Neurosurgery 02/08/22 documented as of this encounter
--- OUTSIDE RECORDS SUMMARY | 2024-08-17 08:55 | XMS_ITS | Encounter Summary ---
Author Organization [facility] Address [address] [place] [address] Care Team Providers Care Carton Catcher Name Role Phone Darien Monroe MD Unavailable [phone] Claude Steele MD Primary Care Provider [phone] Salvador Hurt MD Unavailable [phone] Encounter Details Date Type Department Care Team (Late st Contact Info) Description 10/23/2022 Scanned Document [facility] Neurosurgery [address] [phone] Lilia Sampson RN [address] [place] [address] Social History Tobacco Use Types Packs/Day Years [...] on file Sexual Orientation Not on file documented as of this encounter Plan of Treatment Not on file documented as of this encounter Visit Diagnoses Not on filedocumented in this encounter Care Teams Carton Catcher Relationship Specialty Start Date End Date Claude Steele MD [address] [place] [address] PCP - General Internal Medicine 10/31/21 Darien Monore MD [address] [place] [address] Physician Psychiatry, General 10/31/21 Salvador Hurt MD [address] [place] [address] Surgery, Neurosurgery 02/08/22 documented as of this encounter
[2024-08-17 09:26] LABS: Basophils Percent Auto 0.6 % (0-2); Eosinophils Absolute Auto 0.1 X10*3/uL (0.0-0.4); Eosinophils Percent Auto 1.8 % (0-4); Hematocrit 37.4 % (37.0-47.0); Hemoglobin 12.6 g/dl (12.0-16.0); Imm Gran Abs Auto 0.01 X10*3/uL (0.00-0.03); Imm Gran Pct Auto 0.2 % (0.0-0.4); Lymphocytes Absolute Auto 1.8 X10*3/uL (1.2-4.9); Lymphocytes Percent Auto 36.4 % (20-40); Mean Corpuscular HGB Conc 33.7 g/dl (31.0-35.0); Mean Corpuscular Hemoglobin 31.7 pg (27.0-33.0); Mean Corpuscular Volume 94.2 fL (80.0-98.0); Mean Platelet Volume 10.4 fL (9.4-12.3); Monocytes Absolute Auto 0.3 X10*3/uL (0.1-1.2); Monocytes Percent Auto 5.5 % (2-11); Neutrophils Absolute Auto 2.7 x10*3/uL (2.0-8.3); Neutrophils Percent Auto 55.5 % (45-73); Platelet Count 314 X10*3/uL (160-400); Red Blood Count 3.97 X10*6/uL (4.20-5.50); Red Cell Distribution Width 12.1 % (11.0-16.0); White Blood Count 4.9 X10*3/uL (4.8-10.8)
[2024-08-17 10:04] LABS: Alanine Aminotransferase 23 U/L (0-31); Albumin Level 4.7 g/dL (3.5-5.0); Alkaline Phosphatase 49 U/L (39-117); Anion Gap 11 (12-20); Aspartate Amino Transferase 21 U/L (5-31); Bilirubin Total 0.4 mg/dL (0.0-1.0); Blood Urea Nitrogen 26 mg/dL (9-16); Calcium 9.3 mg/dL (8.4-10.2); Carbon Dioxide 26 mmol/L (22-29); Chloride 110 mmol/L (96-108); Cholesterol 238 mg/dL (<200); Estimated Glomerular Filt Rate > 60; Glucose Fasting 93 mg/dL (60-99); HDL Cholesterol 60 mg/dL (>40); LDL Cholesterol Calculated 154 mg/dL (<100); Potassium 4.6 mmol/L (3.3-5.1); Sodium 142 mmol/L (135-145); Total Protein 7.1 g/dL (6.5-8.0); Triglycerides 120 mg/dL (<150)
== END 2024-08-17 08:29 | disposition home or self-care (01) ==
LOC: HO.LAB 08:28
PROVIDERS: PCP Internal Medicine; Visit Provider Internal Medicine
DX: E78.00 Pure hypercholesterolemia, unspecified (principal); D64.9 Anemia, unspecified
CPT/HCPCS: 36415; 80053; 80061; 85025

== ENCOUNTER 2024-08-18 10:54 | Outpatient (AMB) | payer MEDICARE, MEDICAID, SELFPAY ==
[2024-08-18 10:58] VITALS: BP 110/64; PULSE 78; O2SAT 96; BMI 23.6
--- NOTE | 2024-08-18 10:58 | A.OFFPC_ITS ---
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 Required: No Accompanied by: Self / Same As Patient Allergies amoxicillin [Amoxicillin] Allergy (Severe, Verified 08/18/24 11:26) RASH Sulfa (Sulfonamide Antibiotics) Allergy (Severe, Verified 08/18/24 11:26) RASH pravastatin Allergy (Unknown, Verified 08/18/24 11:26) myalgia pregabalin Allergy (Unknown, Verified 08/18/24 11:26) Muscle cramps alirocumab [From Praluent Pen] Adverse Reaction (Intermediate, Verified 08/18/24 11:33) increased joint pains, patricia in hands and knees mirtazapine Adverse Reaction (Intermediate, Verified 08/18/24 11:33) weight gain and increased headaches and brain fog atorvastatin Adverse Reaction (Unknown, Verified 08/18/24 11:26) leg pain and swelling ezetimibe [Zetia] Adverse Reaction (Unknown, Verified 08/18/24 11:26) joint pain oxycodone [Percocet] Adverse Reaction (Unknown, Verified 08/18/24 11:26) nausea, upset stomach, increased headaches rosuvastatin Adverse Reaction (Unknown, Verified 08/18/24 11:26) myalgia Medication List - Last Reconciled 08/18/24 by Claude Steele MD citalopram 40 mg PO DAILY 90 days evolocumab (Repatha SureClick) 140 mg subcut Q2W hydrocodone-acetaminophen 7.5-325 mg 1 tab PO .4x a day PRN 28 days lorazepam 1 mg PO QID PRN 30 days sennosides (Senna Laxative) 8.6 mg PO BEDTIME sumatriptan succinate 100 mg PO as directed as needed. may repeat one more time if needed; 30 days zolpidem 10 mg PO BEDTIME PRN NS Tobacco use date assessed: 08/18/24 Dental Screening Dental Screen Date: 08/18/24 Did you have a dental visit in the last 12 months?: Yes Did you have a dental problem in the last 6 months where you did not have access to dental care?: No Was dental information given to patient?: Patient has dentist HPI hyperlipidemia, depression HPI Details Patient comes in today for her follow-up visit States that she has been experiencing again symptoms of sinus congestion and pressure for the past 1 1/2 weeks and is concerned that she may be coming down again with a sinus infection She denies any fever or sore throat; denies any headaches or dizziness Denies any chest pains, no increased shortness of breath No nausea/vomiting, no abdominal pain No change in bowel habits noted States that she has also been feeling very depressed lately She admitted to stopping her Mirtazapine a few weeks ago as she felt that she was gaining a lot of weight while she was on the medication; she also reports experiencing increased headaches and feeling of a brain fog since she started taking the Rx States that all of these symptoms subsided as soon as she stopped taking the Mirtazapine States that she is still not sleeping well at night, especially since she stopped her Rx She also noticed that her injectable cholesterol Rx (Praluent) was abruptly changed over to another Rx called Repatha States that she has not yet started taking the medication as she was not sure why her Rx was changed Patient also continues to experience increased pain (chronic) over her lower back and over her left SI joint area She underwent MIS fixation of the left SI joint for stabilization with Dr. Salvador luna in February 2022 at the [facility] Recalls that the surgery helped somewhat initially but her pain has gradually gotten worse again since - states that her current pain meds help keep them at least somewhat manageable and she will need her pain med Rx refilled in a few days (due this weekend) She had her follow up labs done yesterday - to discuss her results [facility] Medical History Family history of myocardial infarction Arthritis of carpometacarpal (CMC) joint of left thumb Gastritis Osteoarthritis of spine with radiculopathy, lumbar region Sprain of ulnar collateral ligament Acute bilateral thoracic back pain Overweight (BMI 25.0-29.9) Depression Anxiety Allergic rhinitis Reflex sympathetic dystrophy of left upper extremity Cervical spondylosis Primary osteoarthritis of right shoulder Pure hypercholesterolemia Migraine Surgical History History of cervical discectomy S/P JOLENE-BSO (total abdominal hysterectomy and bilateral salpingo-oophorectomy) History of carpal tunnel release History of removal of cyst History of colonoscopy History of repair of rotator cuff Family History Father Prostate cancer Mother Lung cancer Hypertension CVD (cardiovascular disease) Diabetes Chronic mental illness Maternal Grandmother Colon cancer Sister History of breast cancer, Onset Age: 64 Stroke Other Mental health problem Social History Housing: House Alcohol intake: never Patient Tobacco Use Status: Former Tobacco user e-Cigarette/Vaping Use: Never Used Second Hand Smoke Exposure: Yes service: No Current occupational status: employed 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 1. Little interest or pleasure in doing things: several days 2. Feeling down, depressed, or hopeless: several days 3. Trouble falling or staying asleep, or sleeping too much: nearly every day 4. Feeling tired or having little energy: several days 5. Poor appetite or overeating: nearly every day 6. Feeling bad about yourself - or that you are a failure or have let yourself or your family down: several days 7. Trouble concentrating on things, such as reading the newspaper or watching television: nearly every day 8. Moving or speaking so slowly that other people could have noticed. Or the opposite - being so fidgety or restless that you have been moving around a lot more than usual: more than half the days 9. Thoughts that you would be better off or of hurting yourself in some way: not at all Total score: 15 Depression Screening Interpretation: Positive Depression Screening Follow-up: Existing condition and In treatment Depression Screening Done: Yes 94570 - PHQ-9 Billing: Yes Source: Developed by Drs. Eulogio Obregon, Marianela Smith, Alec Zapata and colleagues, with an educational sunshine from [employer] Thrive Questionnaire Date Thrive assessed: 08/18/24 I am a: Patient What is your living situation today?: I have a steady place to live Within the past 12 months, did the food you bought not last and you didn't have the money to get more?: Never true Within the past 12 months, did you worry whether your food would run out before you got money to buy more?: Never true Do you have trouble paying for medicines?: No Do you have trouble getting transportation to medical appointments?: No Do you have trouble paying your heating and electricity bill?: No Do you have trouble taking care of your child, family member or friend?: No Do you have trouble with day-to-day activities such as bathing, preparing meals, shopping, managing finances, etc.?: No Are you currently unemployed and looking for a job?: No Are you interested in more education?: No Please select the resources that you would like help with: None Currently or been in a relationship where the following occur: No concerns reported THRIVE Score: 0 AUDIT C Alcohol Use Questionnaire (AUDIT-C) 1. How often do you have a drink containing alcohol?: Monthly or less 2. How many drinks containing alcohol do you have on a typical day when you are drinking?: 1 or 2 3. How often do you have six or more drinks on one occasion?: Never Total Score: 1 Score Reviewed/Action Taken: Yes WALE-7 AMB Questionnaire WALE-7 Date WALE - 7 assessed: 08/18/24 Feeling nervous, anxious, or on edge: 1 = Several days Not being able to stop or control worryin = Nearly every day Worrying too much about different things: 3 = Nearly every day Trouble relaxin = More than half the days Being so restless that it is hard to sit still: 2 = More than half the days Becoming easily annoyed or irritable: 3 = Nearly every day Feeling afraid as if something awful might happen: 3 = Nearly every day Total WALE-7 score (0-4 normal; 5-9 mild; 10-14 moderate; 15-21 severe): 17 Source: Developed by Drs. Eulogio Obregon, Marianela Smith, Alec Zapata and colleagues, with an educational sunsihne from [employer] Review of Systems Const Denies chills, Reports difficulty sleeping, Reports fatigue, Denies fever(s) and Denies headache(s) ENT Reports dysphagia (feels like she is being choked at times), Denies dizziness, Denies otalgia, Denies headache(s), Reports nasal congestion, Reports neck pain (chronic), Denies odynophagia, Denies sinus pain, Reports sinus pressure and Denies sore throat Card Denies chest pain, Denies rapid heart rate, Denies irregular heart rhythm, Denies palpitations and Denies dyspnea Resp Denies chest congestion, Denies cough and Denies dyspnea GI Denies abdominal pain, Reports constipation (chronic - mainly due to her pain meds), Reports dysphagia (feels like she is being choked at times), Denies heartburn, Denies diarrhea, Denies nausea, Denies odynophagia and Denies vomiting Denies hematuria, Denies nocturia, Denies dysuria, Denies urinary incontinence and Denies urinary urgency Musc Reports back pain (chronic, over the lower back), Reports arthralgias (over the left shoulder and left wrist), Reports neck pain (chronic) and Reports radiating pain into limb (left arm) Skin/Breast Denies rash Neuro Denies dizziness, Denies headache(s) and Denies paresthesias Endo Reports fatigue and Denies palpitations Jose/Lymph Denies easy bruising Physical exam (Primary Care) Vital Signs: Last Vital Signs Pulse 78 08/18/24 10:58 BP 110/64 08/18/24 10:58 Pulse Ox 96 08/18/24 10:58 Oxygen Delivery Method Room Air 08/18/24 10:58 BMI result Body Mass Index 23.6 Tobacco/Smoking Status: Tobacco use Status Tobacco use date assessed 08/18/24 08/18/24 11:01 Patient Tobacco Use Status Former Tobacco user 08/18/24 11:01 e-Cigarette/Vaping Use Never Used 08/18/24 11:01 PHQ-9: PHQ-9 Score PHQ-9: Total score 15 08/18/24 11:28 Depression Screening Interpretation: Positive Depression Screening Follow-up: Existing condition and In treatment Thrive Assessment: Date of Thrive Assessment Date Thrive assessed 08/18/24 08/18/24 11:01 Currently or been in a relationship where the following occur: No concerns reported Const General: no acute distress and alert HENMT Ears: TM's normal bilaterally and EAC's normal Face and sinus: No sinus tenderness (but (+) mild discomfort on palpation of face/sinuses bilaterally) Throat: Yes posterior oropharynx normal and Yes tonsils normal (no TP congestion) Neck Neck: Yes supple and No lymphadenopathy Thyroid: Thyroid normal Resp Auscultation: clear to auscultation bilaterally, no rales and no wheezes Cardio Rate: regular rate Rhythm: regular rhythm Heart sounds: no murmurs GI Palpation (GI): Soft to palpation and nontender Auscultation: normal bowel sounds General: Yes no CVA tenderness Back/Spine/Pelvis Back: no CVA tenderness Cervical Spine: Cervical spine tenderness Thoracic/Lumbar Spine: paraspinal muscle tenderness bilaterally in the lower thoracic and lumbar spinal tenderness Sacroiliac joints: on the left tender to palpation Skin Rashes: no rashes Extrem General: Yes no clubbing, cyanosis or edema Left upper extremity: wrist ((+) tenderness) Results Reviewed Results Reviewed: Laboratory Tests 08/17/24 08:45 WBC 4.9 Hgb 12.6 Hct 37.4 Plt Count 314 Sodium 142 Potassium 4.6 Creatinine 0.92 Estimated GFR > 60 Fasting Glucose 93 Calcium 9.3 AST 21 ALT 23 Triglycerides 120 Cholesterol 238 H LDL Cholesterol, Calc 154 H HDL Cholesterol 60 Coding Level of Care Code Est Pt Level 4 (37499) Complex EM visit Add On G2211 Diagnoses Pure hypercholesterolemia E78.00 Migraine without status migrainosus, not intractable, unspecified migraine type G43.909 Intractability: not intractable Migraine type: unspecified Status migrainosus presence: without status migrainosus Gastritis without bleeding, unspecified chronicity, unspecified gastritis type K29.70 Chronicity: unspecified Gastritis bleeding: without bleeding Gastritis type: unspecified gastritis Early satiety R68.81 Reflex sympathetic dystrophy of left upper extremity G90.512 Cervical spondylosis M47.812 Osteoarthritis of spine with radiculopathy, lumbar region M47.26 Arthritis of carpometacarpal (CMC) joint of left thumb M18.12 Allergic rhinitis, unspecified seasonality, unspecified trigger J30.9 Allergic rhinitis seasonality: unspecified Allergic rhinitis trigger: unspecified Anxiety F41.9 Episode of recurrent major depressive disorder, unspecified depression episode severity F33.9 Active/Remission status: currently active Depression Type: major depressive disorder Major depression episode severity: unspecified Major depression recurrence: recurrent Additional Codes PHQ-9 - 57774 - PHQ-9 Billing: Yes ([id number]) Assessment & Plan Assessment & Plan (1) Pure hypercholesterolemia: Code(s): E78.00 - Pure hypercholesterolemia, unspecified Category: Medical Plan: Results of her labs done yesterday reviewed and discussed with patient - she is cautioned that her cholesterol levels have increased significantly from previous, likely because she did not take her injections recently This is mostly due to confusions about her Rx - her previous Praluent Rx was switched over to Repatha due to insurance formulary change(s) Patient states that she currently has her Repatha but has not yet started on the medication she wanted to double check with us first about this at today's visit She also recalls experiencing increased joint pains, especially in her hands and knees with her most recent injections of Praluent and she admitted to not taking her shots for a few weeks now Have advised her that she should start back on the medication MANDI as her cholesterol level has increased significantly since she stopped taking her previous injection of Praluent a few weeks ago Reinforced low-cholesterol diet Patient will now start taking her Repatha injections 140 mg SQ every 2 weeks; her Praluent injections will be discontinued Will recheck her labs and fasting lipids again in 3 months for follow-up (2) Migraine: Code(s): G43.909 - Migraine, unspecified, not intractable, without status migrainosus Category: Medical Qualifiers: Intractability: not intractable Migraine type: unspecified Status migrainosus presence: without status migrainosus Qualified Code(s): G43.909 - Migraine, unspecified, not intractable, without status migrainosus Plan: Reinforced avoidance of all potential migraine triggers Continue Sumatriptan 50 mg PRN (3) Gastritis: Code(s): K29.70 - Gastritis, unspecified, without bleeding Category: Medical Qualifiers: Chronicity: unspecified Gastritis bleeding: without bleeding Gastritis type: unspecified gastritis Qualified Code(s): K29.70 - Gastritis, unspecified, without bleeding Plan: Reinforced dietary restrictions Continue Pantoprazole 40 mg QD She is seeing GI for further evaluation and management - will likely benefit from EGD for further clarification of her symptoms (4) Early satiety: Code(s): R68.81 - Early satiety Category: Medical Plan: Upper GI series done last year revealed findings suggestive of GERD, achalasia and gastritis She was referred to and seen by GI last year and was sent for additional testing for further evaluation, including labs, abdominal US, gastric emptying time and EGD For unclear reasons, she has not yet been scheduled for her EGD and it looks like she has not seen GI again since her last visit last summer (December 2023) Have advised patient to reach out to GI to schedule a follow up appt soon - will place a new referral to GI to ensure this gets processed/done (5) Reflex sympathetic dystrophy of left upper extremity: Code(s): G90.512 - Complex regional pain syndrome I of left upper limb Category: Medical Plan: Patient states that her chronic arm pain remains adequately controlled on her current Rx (6) Cervical spondylosis: Comment: S/P C5-C6 ACDF a couple of years ago - neck still feels sore frequently but left arm weakness has improved with surgery Code(s): M47.812 - Spondylosis without myelopathy or radiculopathy, cervical region Category: Medical Plan: Continue Cyclobenzaprine 10 mg 3 times a day as needed (7) Osteoarthritis of spine with radiculopathy, lumbar region: Code(s): M47.26 - Other spondylosis with radiculopathy, lumbar region Category: Medical Plan: Reinforced activity and weight-lifting restrictions She could not tolerate physical therapy in the past; cortisone injections in the past at [facility] have helped temporarily She has also received epidural injections from [facility] for a few months a couple of years ago, with variable results She was seen by Dr. Darien Monroe at [facility] in the past and also had a couple of SI joint injections that she states helped only temporarily She was then referred to Dr. Salvador Hurt in [place] and underwent MIS fixation of left sacroiliac joint for stabilization on 02/28/22, followed by physical therapy when she was cleared by her surgeon for rehab States that the surgery helped her somewhat but we have not received any further updates on her condition via correspondence or OV notes from her doctors in [place] since her surgery Reports that her pain has gradually gotten worse again a few months after her surgery and have progressed since Continue Hydrocodone-Acetaminophen 7.5-325 mg 1 tablet 4 times a day as needed for increased pain - Rx refill sent but patient is advised that she will not be able to get this at the pharmacy yet until this Saturday at the earliest (8) Arthritis of carpometacarpal (CMC) joint of left thumb: Code(s): M18.12 - Unilateral primary osteoarthritis of first carpometacarpal joint, left hand Category: Medical Plan: MRI of the left wrist done last year revealed (+) severe OA changes in the wrist Follow up with orthopedics as scheduled (9) Allergic rhinitis: Code(s): J30.9 - Allergic rhinitis, unspecified Category: Medical Qualifiers: Allergic rhinitis seasonality: unspecified Allergic rhinitis trigger: unspecified Qualified Code(s): J30.9 - Allergic rhinitis, unspecified Plan: Will start patient back on Fluticasone 50 mcg nasal spray QD PRN She is advised that her current sinus pressure and symptoms appear more consistent with allergic rhinitis and she does not appear to have any active sinus infection at present and certainly does not need to be started on Abx again at this time (10) Anxiety: Code(s): F41.9 - Anxiety disorder, unspecified Category: Medical Plan: Continue Lorazepam 1 mg 4 times a day as needed Will try starting her additionally on Doxepin 25 mg Q HS and this will hopefully help with both her anxiety and with her sleep at night (11) Depression: Code(s): F32.9 - Major depressive disorder, single episode, unspecified Category: Medical Qualifiers: Active/Remission status: currently active Depression Type: major depressive disorder Major depression episode severity: unspecified Major depression recurrence: recurrent Qualified Code(s): F33.9 - Major depressive disorder, recurrent, unspecified Plan: Continue Citalopram 40 mg QD - states that the increase in her dose at her last visit appears to have helped and at least offset her coming off her Mirtazapine a few weeks ago for reasons noted above - Mirtazapine will be discontinued from her med list today Follow-up with Psychiatry as scheduled Plan Follow up in 3 months Orders: Orders Complete Blood Count Auto Diff 3 Months D64.9 - Anemia, unspecified Comprehensive Halliday. Panel Fast 3 Months E78.00 - Pure hypercholesterolemia, unspecified Lipid Panel 3 Months E78.00 - Pure hypercholesterolemia, unspecified Referrals Gastroenterology Referral K29.70 - Gastritis, unspecified, without bleeding, R13.10 - Dysphagia, unspecified, R68.81 - Early satiety Medications: New doxepin 25 mg PO BEDTIME 30 days 30 caps 0RF fluticasone propionate 50 mcg/actuation administer into each nostril 2 sprays intranasal DAILY 30 days PRN 16 grams 5RF allergy symptoms Refilled hydrocodone-acetaminophen 7.5-325 mg 1 tab PO .4x a day 28 days PRN 112 tabs 0RF pain
--- OUTSIDE RECORDS SUMMARY | 2024-08-18 13:15 | XMS_ITS | Encounter Summary ---
Author Organization [facility] Address [address] [place] [address] Care Team Providers Care Account Administrator Name Role Phone Darien Monroe MD Unavailable [phone] Claude Steele MD Primary Care Provider Salvador Hurt MD Unavailable [phone] Encounter Details Date Type Department Care Team (Late st Contact Info) Description 01/26/2022 Scanned Document [facility] Neurosurgery [address] [phone] Neurosurgery, Scan Social History Tobacco Use Types [...] on filedocumented in this encounter Care Teams Account Administrator Relationship Specialty Start Date End Date Claude Steele MD [address] [place] [address] [place] [address] PCP - General Internal Medicine 10/31/21 Darien Monroe MD [address] [place] [address] Physician Psychiatry, General 10/31/21 Salvador Hurt MD [address] [address] Surgery, Neurosurgery 02/08/22 documented as of this encounter
--- OUTSIDE RECORDS SUMMARY | 2024-08-18 13:15 | XMS_ITS | Clinical Summary ---
Author Organization [employer] Address [address] [facility] 7 [place] [address] Care Team Providers Care Jd Edwards Name Role Phone Unavailable Primary Care Provider [...] NEEDED FOR SLEEP 4 Active HYDROcodone-jacky taminophen ([place]) 7.5-325 MG tablet TAKE ONE TABLET BY [...] Most Recently Relevant to Health Maintenance Insurance [facility] MEDICA[facility] STAND ADULT
--- OUTSIDE RECORDS SUMMARY | 2024-08-18 13:15 | XMS_ITS | Encounter Summary ---
Author Organization [facility] Address [address] [place] [address] Care Team Providers Care Hooker Machine Tender Name Role Phone Darien Monroe MD Unavailable [phone] Claude Steele MD Primary Care Provider [phone] Salvador Hurt MD Unavailable [phone] Encounter Details Date Type Department Care Team (Late st Contact Info) Description 02/22/2022 Scanned Document [facility] Neurosurgery [address] [phone] [address] Social History Tobacco Use Types [...] on filedocumented in this encounter Care Teams Hooker Machine Tender Relationship Specialty Start Date End Date Claude Steele MD [address] [place] [address] Dr Samuel [address] [place] [id number] PCP - General Internal Medicine 10/31/21 Darien Monroe MD [address] [place] [address] Physician Psychiatry, General 10/31/21 Salvador Hurt MD [address] [place] [id number] Surgery, Neurosurgery 02/08/22 documented as of this encounter
--- OUTSIDE RECORDS SUMMARY | 2024-08-18 13:15 | XMS_ITS | Clinical Summary ---
Author Organization [facility] Address [address] [place] [address] Care Team Providers Care B2B Sales Manager Name Role Phone Darien Monroe MD Unavailable [phone] Claude Steele MD Primary Care Provider [phone] Salvador Hurt MD Unavailable [phone] Allergies Active Allergy Reactions Criticality Noted Date [...] this topic Medical Devices Implanted Type Area Contracts Specialist Device Identifier Shelf Expiration Date Model / Serial / Lot [id number]-90 System Spinal Fixation 50mm 7mm Ifuse-3d Implant 3ang - Sn/A Implanted:Qty: 1 on 02/28/2022 by Salvador Hurt MD at [facility] Spine Left: Sacrum [employer] 03/14/2026 7050M-90 / N/A / [id number]-90 System Spinal Fixation 45mm 7mm Ifuse Implant Sys 3ang - Sn/A Implanted:Qty: 1 on 02/28/2022 by Salvador Hurt MD at [facility] Spine Left: Sacrum [employer] 02/10/2026 7045M-90 / N/A / [id number] System Spinal Fixation 45mm 7mm Ifuse Implant Sys 3ang - Sn/A Implanted:Qty: 1 on 02/28/2022 by Salvador Hurt MD at [facility] Spine Left: Sacrum [employer] 02/20/2026 [id number]-90 / N/A / [id number] Advance Directives * Full Code (Latest Code Status on File) Date Activated Date Inactivated Comments 02/28/2022 12:38 PM * Full Code Date Activated Date Inactivated Comments 02/28/2022 7:53 AM 02/28/2022 12:38 PM Care Teams B2B Sales Manager Relationship Specialty Start Date End Date Claude Steele MD [address] [place] [address] PCP - General Internal Medicine 10/31/21 Darien Monroe MD [address] [place] [address] Physician Psychiatry, General 10/31/21 Salvador Hurt MD [address] [place] [address] Surgery, Neurosurgery 02/08/22
--- OUTSIDE RECORDS SUMMARY | 2024-08-18 13:15 | XMS_ITS | Encounter Summary ---
Author Organization [facility] Address [address] [place] [address] Care Team Providers Care Insurance Biller Name Role Phone Darien Monroe MD Unavailable [phone] Claude Steele MD Primary Care Provider [phone] Salvador Hurt MD Unavailable [phone] Encounter Details Date Type Department Care Team (Late st Contact Info) Description 03/26/2022 [facility] Neurosurgery [address] [phone] Salvador Hurt MD [address] [place] [address] SI (sacroiliac) joint dysfunction Social History [...] classified documented in this encounter Care Teams Insurance Biller Relationship Specialty Start Date End Date Claude Steele MD [address] [place] [address] Dr Samuel [address] [place] [address] PCP - General Internal Medicine 10/31/21 Darien Monroe MD [address] [place] [address] Physician Psychiatry, General 10/31/21 Salvador Hurt MD [address] [place] [address] 5 [place] [address] Surgery, Neurosurgery 02/08/22 documented as of this encounter
--- OUTSIDE RECORDS SUMMARY | 2024-08-18 13:15 | XMS_ITS | Encounter Summary ---
Author Organization [facility] Address [address] [place] [address] Care Team Providers Care Tonger Name Role Phone Darien Monroe MD Unavailable [phone] Claude Steele MD Primary Care Provider [phone] Salvador Hurt MD Unavailable [phone] Encounter Details Date Type Department Care Team (Late st Contact Info) Description 02/07/2022 Scanned Document [facility] Neurosurgery [address] [phone] Social History Tobacco Use Types Packs/Day Years [...] on filedocumented in this encounter Care Teams Tonger Relationship Specialty Start Date End Date Claude Steele MD [address] [place] [address] [place] [address] PCP - General Internal Medicine 6/28/22 Darien Monroe MD [address] [place] [address] Physician Psychiatry, General 10/31/21 Salvador Hurt MD [address] [place] [address] Surgery, Neurosurgery 02/08/22 documented as of this encounter
--- OUTSIDE RECORDS SUMMARY | 2024-08-18 13:15 | XMS_ITS | Encounter Summary ---
Author Organization [facility] Address [address] [place] [address] Care Team Providers Care Bioinformatics Associate Name Role Phone Darien Monroe MD Unavailable [phone] Claude Steele MD Primary Care Provider [phone] Salvador Hurt MD Unavailable [phone] Encounter Details Date Type Department Care Team (Late st Contact Info) Description 10/23/2022 Scanned Document [facility] Neurosurgery [address] [phone] Lilia Sampson RN [address] [place] [address] Social History Tobacco Use Types Packs/Day Years [...] on filedocumented in this encounter Care Teams Bioinformatics Associate Relationship Specialty Start Date End Date Claude Steele MD [address] [place] [address] PCP - General Internal Medicine 10/31/21 Darien Monroe MD [address] [place] [address] Physician Psychiatry, General 10/31/21 Salvador Hurt MD [address] [place] [address] Surgery, Neurosurgery 02/08/22 documented as of this encounter
--- OUTSIDE RECORDS SUMMARY | 2024-08-18 13:15 | XMS_ITS | Clinical Summary ---
Author Organization [address] [facility] Address [address] [place] [address] Phone Care Team Providers Care Lockstitch Machine Operator Name Role Phone Claude Steele MD Primary [...] Upcoming Encounters Date Type Department Care Team (Special Care Hospital Contact Info) Description 08/19/2024 9:45 AM EDT Consult Orthopedic Surgery [facility] [address] [facility] [address] [place] [address] Ned Meier, DPM [address] [facility] [address] [place] [address] Health Maintenance Due Date Last Done Comments [...] Insurance MED[place] - [place] MEDICARE Care Teams Lockstitch Machine Operator Relationship Specialty Start Date End Date Claude Steele MD [address] [place] [address] [address] [place], [place] PCP - General Internal Medicine 12/30/17
--- OUTSIDE RECORDS SUMMARY | 2024-08-18 13:15 | XMS_ITS | Encounter Summary ---
Author Organization [facility] Address [address] [place] [address] Care Team Providers Care Mid Level Java Developer Name Role Phone Darien Monroe MD Unavailable [phone] Claude Steele MD Primary Care Provider [phone] Salvador Hurt MD Unavailable [phone] Encounter Details Date Type Department Care Team (Late st Contact Info) Description 02/22/2022 Scanned Document [facility] Neurosurgery [address] [phone] Salvador Hurt MD [address] [place] [address] Social History Tobacco Use Types Packs/Day [...] on filedocumented in this encounter Care Teams Mid Level Java Developer Relationship Specialty Start Date End Date Claude Steele MD [address] [place] [address] Dr [address] [place] [address] PCP - General Internal Medicine 10/31/21 Darien Monroe MD [address] [place] [address] Physician Psychiatry, General 10/31/21 Salvador Hurt MD [address] [place] [address] 5 [place] [address] Surgery, Neurosurgery 02/08/22 documented as of this encounter
--- OUTSIDE RECORDS SUMMARY | 2024-08-18 13:15 | XMS_ITS | Patient Health Record ---
Author Organization [facility] Address [address] [place] [address] Care Team Providers Care Electronic Component Processor Name Role Phone Cedric CRUZ, [place] Primary Care Provider Tuan Mata Jr [phone] Allergies Allergen (clinical drug ingredient) Drug/Non [...] Problem Status W/U Status Risk Notes Problem [id number] Rectal bleeding (K62.5) Active confirmed Plan Of Treatment Future Test Test Name Order Date COLONOSCOPY 04/27/2015 Insurance Providers Payer Name Payer Address Payer Phone Subscriber Number Group Number Insured Name Patient Relationship to Insured Coverage Start Date Coverage End Date [facility] [address] [place], [place] [id number] [phone] [id number] DARELL MENENDEZ Self - patient is the insured Medical (General) History Medical History History ICD Code colonoscopy 02-15-2010 colitis Denies NM,DM,CVA,Lung disease,renal dise ase ovarian cysts Surgical History Surgery Date(Month/Year) right shoulder surgery hysterectomy 2011
--- OUTSIDE RECORDS SUMMARY | 2024-08-18 13:15 | XMS_ITS | Encounter Summary ---
Author Organization [facility] Address [address] [place] [address] Care Team Providers Care Customer Advocacy Manager Name Role Phone Darien Monroe MD Unavailable [phone] Claude Steele MD Primary Care Provider [phone] Salvador Hurt MD Unavailable [phone] Encounter Details Date Type Department Care Team (Late st Contact Info) Description 04/10/[address] [facility] Neurosurgery [address] [phone] Neurosurgery, Scan Social History Tobacco Use Types [...] on filedocumented in this encounter Care Teams Customer Advocacy Manager Relationship Specialty Start Date End Date Claude Steele MD [address] [place] [address] PCP - General Internal Medicine 10/31/21 Darien Monroe MD [address] [place] [address] Physician Psychiatry, General 10/31/21 Salvador Hurt MD [address] [place] [address] Surgery, Neurosurgery 02/08/22 documented as of this encounter
--- OUTSIDE RECORDS SUMMARY | 2024-08-18 13:15 | XMS_ITS | Encounter Summary ---
Author Organization [facility] Address [address] [place] [address] Care Team Providers Care Firefighting Equipment Specialist Name Role Phone Darien Monroe MD Unavailable [phone] Claude Steele MD Primary Care Provider [phone] Salvador Hurt MD Unavailable [phone] Reason for Visit * Reason Comments Medication Problem Pharmacy needed auth Encounter Details Date Type Department Care Team (Late st Contact Info) Description 03/01/2022 Telephone [facility] Neurosurgery [address] [phone] Jluis Bianchi, PASammC [address] [place] [address] Medication Problem (Pharmacy needed auth) Social History [...] EDT Please confirm that her pharmacy is [facility]. We cannot prescribe to Willy in [facility]. documented in this encounter Plan of Treatment Not on file documented as of this encounter Visit Diagnoses Not on filedocumented in this encounter Care Teams Firefighting Equipment Specialist Relationship Specialty Start Date End Date Claude Steele MD [address] [place] [address] [place] [address] PCP - General Internal Medicine 10/31/21 Darien Monroe MD [address] [place] [address] Physician Psychiatry, General 10/31/21 Salvador Hurt MD [address] [address] Surgery, Neurosurgery 02/08/22 documented as of this encounter
== END 2024-08-18 11:44 | disposition home or self-care (01) ==
LOC: HO.HMCH 10:54
PROVIDERS: PCP Internal Medicine; Visit Provider Internal Medicine
DX: E78.00 Pure hypercholesterolemia, unspecified (principal); G43.909 Migraine, unspecified, not intractable, without status migrainosus; K29.70 Gastritis, unspecified, without bleeding; F33.9 Major depressive disorder, recurrent, unspecified; R68.81 Early satiety; G90.512 Complex regional pain syndrome I of left upper limb; M47.812 Spondylosis without myelopathy or radiculopathy, cervical region; M47.26 Other spondylosis with radiculopathy, lumbar region; M18.12 Unilateral primary osteoarthritis of first carpometacarpal joint, left hand; J30.9 Allergic rhinitis, unspecified; F41.9 Anxiety disorder, unspecified

== ENCOUNTER → 2024-08-18 10:54 | Outpatient (BNVA) | payer MEDICARE, MEDICAID, SELFPAY | PROVIDERS: PCP Internal Medicine; Visit Provider Internal Medicine | DX: E78.00 Pure hypercholesterolemia, unspecified (principal); G43.909 Migraine, unspecified, not intractable, without status migrainosus; K29.70 Gastritis, unspecified, without bleeding; R68.81 Early satiety; M47.812 Spondylosis without myelopathy or radiculopathy, cervical region; G90.512 Complex regional pain syndrome I of left upper limb; M47.26 Other spondylosis with radiculopathy, lumbar region; M18.12 Unilateral primary osteoarthritis of first carpometacarpal joint, left hand; F41.9 Anxiety disorder, unspecified; F33.9 Major depressive disorder, recurrent, unspecified | CPT/HCPCS: 96127; 99212 ==

== ENCOUNTER 2024-12-08 07:24 | Day surgery (SDC) | payer MEDICARE, MEDICAID, SELFPAY ==
--- OUTSIDE RECORDS SUMMARY | 2024-11-17 15:14 | XMS_ITS | Clinical Summary ---
Author Organization [address] [place] [address] Address [address] [place] [address] Phone Care Team Providers Care Supervisor [place] Name Role Phone Claude Steele MD Primary [...] Orientation Not on file Plan of Treatment Health Maintenance Due Date [...] Influencers of Health Screening 04/03/2022 COVID-19 Vaccine (1 - 2023-2 5 season) 2024 Influenza Vaccine (#1) 2025 03/08/2005 HIB Vaccines Aged Out No [...] Cancer Screening: HPV no interpreta tion,abstr acted us Historical Provider HEALTH MAINTENANCE Final Result from Last 3 Months or Most Recently Relevant to Health Maintenance Insurance MEDICA[place] - [place] MEDICARE Care Teams Supervisor [place] Relationship Specialty Start Date End Date Claude Steele MD [address] [place] [address] Jose Roberto [facility] [place] PCP - General Internal Medicine 12/30/17
--- OUTSIDE RECORDS SUMMARY | 2024-11-17 15:14 | XMS_ITS | Clinical Summary ---
Author Organization [employer] [facility] Address [address] [facility] 7 [place] [address] Care Team Providers Care Photography Coordinator Name Role Phone Unavailable Primary Care [...] NEEDED FOR SLEEP 4 Active HYDROcodone-jacky taminophen ([place]) 7.5-325 MG tablet TAKE ONE TABLET BY [...] Screening 1968 SDOH Screening 1968 Sigmoidoscopy 1968 Disability Screening 1968 Alcohol/Substance Use Screening 1980 Hepatitis C Screening 1986 Hepatitis B Vaccines (1 of 3 - 19+ 3-dose series) 1987 Pap Smear 1989 Cervical Cancer Screening 1998 HPV/Cotest 1998 Mammogram 2008 Pneumococcal Vaccine: 50+ Years (1 of 1 - PCV) 2018 Zoster Vaccines (1 of 2) 2018 COVID-19 Vaccine (3 - 2023-2 5 season) 2024 09/18/2020, 08/21/2020 Dental X-Ray: [facility] 12/23/2024 12/23/2023 Influenza Vaccine (#1) 2025 03/08/2005 Tobacco Screening 01/15/2025 01/16/2024 DTaP/Tdap/Td Vaccines (2 [...] Most Recently Relevant to Health Maintenance Insurance [facility] MEDICAID STAND ADULT
--- OUTSIDE RECORDS SUMMARY | 2024-11-17 15:14 | XMS_ITS | Patient Health Record ---
Author Organization [facility] Address [address] [place] [address] Care Team Providers Care School Business Administrator Name Role Phone Cedric CRUZ, [place] Primary Care Provider Tuan Mata Jr [phone] Allergies Allergen (clinical drug ingredient) Drug/Non [...] Problem Status W/U Status Risk Notes Problem [id number] Rectal bleeding (K62.5) Active confirmed Plan Of Treatment Future Test Test Name Order Date COLONOSCOPY 04/27/2015 Insurance Providers Payer Name Payer Address Payer Phone Subscriber Number Group Number Insured Name Patient Relationship to Insured Coverage Start Date Coverage End Date [facility] [address] [place], [place] [id number] DARELL MENENDEZ Self - patient is the insured Medical (General) History Medical History History ICD Code colonoscopy 02-15-2010 colitis Denies DE,DM,CVA,Lung disease,renal dise ase ovarian cysts Surgical History Surgery Date(Month/Year) right shoulder surgery hysterectomy 2011
--- OUTSIDE RECORDS SUMMARY | 2024-11-17 15:14 | XMS_ITS ---
[facility] Name [facility] Organization Unknown History of Medication Use Medication Directions Dispensed Refills Start Date End Date Stat us acetaminophen (TYLENOL) 325 MG tablet Take 2 tablets (650 mg total) by mouth 4 (four) times a day as needed for mild pain. 03/01/2022 04/01/2022 active SUMAtriptan (IMITREX) 100 MG tablet TAKE 1 TABLET BY MOUTH DIRECTED NEEDED FOR 30 DAYS. MAY REPEAT 1 MORE TIME IF NEEDED 12/29/2021 active Allergies Allergen Reaction Severity Comment Documented Date Source Statu s LATEX Added based on information entered during case entry, please review and add reactions, type, and severity as needed 02/27/2022 [facility] active SULFA ANTIBIOTICS RASH/DERMATITI S 04/27/2015 [facility] active AMOXICILLIN OTHER (SEE COMMENTS) [facility] Problems Problem Status Onset Date Problem Type Date of Resoluti on Source Migraines active ProblemAct [facility] S/P fusion of sacroiliac joint active EncounterDiagnosisAct HH [facility] Anxiety active ProblemAct [facility] SI (sacroiliac) joint dysfunction active 2022-02-28 ProblemAct [facility] Depression active ProblemAct [facility] Encounters Encounter Type Encounter Reason Primary Diagnosis Location Date Ambulatory [facility] 12/01/2022 Ambulatory [facility] 11/30/2022 Ambulatory Arthrodesis status [facility] 08/20/2022 Ambulatory Arthrodesis status [facility] 05/28/2022 Ambulatory Sacrococcygeal disorders, not elsewhere classified [facility] 03/19/2022 Ambulatory Lumbago with sci atica, left side [facility] 03/19/2022 Ambulatory Sacrococcygeal disorders, not elsewhere classified [facility] 02/28/2022 Ambulatory Lumbago with sci atica, left side [facility] 02/26/2022 Ambulatory Encounter for preprocedural laboratory examination [facility] 02/26/2022 Ambulatory Radiculopathy, l umbar region [facility] 02/16/2022 Ambulatory Encounter for ot her preprocedural examination [facility] 02/13/2022 Ambulatory [email or web address] 01/16/2022 Ambulatory [email or web address] 01/16/2022 Ambulatory [email or web address] 01/15/2022 Ambulatory [email or web address] 01/15/2022 Ambulatory Sacrococcygeal disorders, not elsewhere classified [facility] 01/15/2022 Care Team Organization Name Specialty Phone Email Start Date End [facility] 11/30/2022 11/30/2022 [facility] 03/19/2022 [facility] 01/15/202203/19 [facility] NO PCP Primary Care 01/02/2022 05/28/2022
--- OUTSIDE RECORDS SUMMARY | 2024-11-17 15:14 | XMS_ITS | Encounter Summary ---
Author Organization [facility] Address [address] [place] [address] Care Team Providers Care Mold Maker Helper Name Role Phone Darien Monroe MD Unavailable [phone] Claude Steele MD Primary Care Provider [phone] Salvador Hurt MD Unavailable [phone] Encounter Details Date Type Department Care Team (Late st Contact Info) Description 01/26/2022 Scanned Document [facility] Neurosurgery [address] [phone] Neurosurgery, Scan Social History Tobacco Use Types Packs/Day Years Used Date Smoking Tobacco: Never Assessed Comments Unknown Sex and Gender Information Value Date Recorded Sex Assigned at Not on file Legal Sex Female 6:52 PM EST Gender Identity Not on file [...] on filedocumented in this encounter Care Teams Mold Maker Helper Relationship Specialty Start Date End Date Claude Steele MD [address] [place] [address] [place] [address] PCP - General Internal Medicine 10/31/21 Darien Monroe MD [address] [place] [address] Physician Psychiatry, General 10/31/21 Salvador Hurt MD [address] [address] Surgery, Neurosurgery 02/08/22 documented as of this encounter
--- NOTE | 2024-12-07 11:57 | HO.ANESPROP2 ---
Documented by User: Erin Stone NP 12/07/24 11:57 HPI - Anesthesia Eval Consult details Narrative: 54yo F for Upper Endoscopy PMFSH Active Problems Active Problems: All Active Problems Family history of myocardial infarction (Acute) Arthritis of carpometacarpal (CMC) joint of left thumb (Acute) Osteoarthritis of spine with radiculopathy, lumbar region (Acute) Gastritis (Acute) Onychomycosis of toenail (Acute) Encounter for well woman exam with routine gynecological exam (Acute) Arthralgia (Acute) Thrombocytopenia (Acute) Dysphagia (Acute) Early satiety (Acute) Statin intolerance (Acute) Weight loss, unintentional (Acute) Sciatica associated with disorder of lumbar spine (Acute) Nausea & vomiting (Acute) Diarrhea (Acute) Overweight (BMI 25.0-29.9) (Acute) Depression (Acute) Anxiety (Acute) Allergic rhinitis (Acute) Reflex sympathetic dystrophy of left upper extremity (Acute) Cervical spondylosis (Acute) Primary osteoarthritis of right shoulder (Acute) Pure hypercholesterolemia (Acute) Migraine (Acute) Past Medical History Medical History Family history of myocardial infarction Arthritis of carpometacarpal (CMC) joint of left thumb Gastritis Osteoarthritis of spine with radiculopathy, lumbar region Sprain of ulnar collateral ligament Acute bilateral thoracic back pain Overweight (BMI 25.0-29.9) Depression Anxiety Allergic rhinitis Reflex sympathetic dystrophy of left upper extremity Cervical spondylosis Primary osteoarthritis of right shoulder Pure hypercholesterolemia Migraine Family History Family History Father Prostate cancer Mother Lung cancer Hypertension CVD (cardiovascular disease) Diabetes Chronic mental illness Maternal Grandmother Colon cancer Sister History of breast cancer, Onset Age: 64 Stroke Other Mental health problem Surgical History Surgical History History of cervical discectomy S/P JOLENE-BSO (total abdominal hysterectomy and bilateral salpingo-oophorectomy) History of carpal tunnel release History of removal of cyst History of colonoscopy History of repair of rotator cuff Social History Social History Housing: House Are you a primary career orientation teacher to a significant other at home: No Do you presently have visiting nurse or other home services: No Alcohol intake: never Patient Tobacco Use Status: Former Tobacco user e-Cigarette/Vaping Use: Never Used Second Hand Smoke Exposure: Yes Have you been hit, kicked, punched, or otherwise hurt by someone within the past year? 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 Cognitive needs: No Hearing needs: No Vision needs: Yes Meds Allergies Allergy/AdvReac Type Severity Reaction Status Date / Time amoxicillin (Amoxicillin) Allergy Severe RASH Verified 12/08/24 07:58 Sulfa (Sulfonamide Allergy Severe RASH Verified 12/08/24 07:58 Antibiotics) pravastatin Allergy Unknown myalgia Verified 12/08/24 07:58 pregabalin Allergy Unknown Muscle Verified 12/08/24 07:58 cramps alirocumab (From Praluent AdvReac Intermediate increased Verified 12/08/24 07:58 Pen) joint pains, patricia in hands and knees mirtazapine AdvReac Intermediate weight Verified 12/08/24 07:58 gain and increased headaches and brain fog atorvastatin AdvReac Unknown leg pain Verified 12/08/24 07:58 and swelling ezetimibe (Zetia) AdvReac Unknown joint pain Verified 12/08/24 07:58 oxycodone (Percocet) AdvReac Unknown nausea, Verified 12/08/24 07:58 upset stomach, increased headaches rosuvastatin AdvReac Unknown myalgia Verified 12/08/24 07:58 Home Medications ?Medication ?Instructions ?Recorded ?Confirmed ?Last Taken ?Type sennosides 8.6 mg tablet (Senna 8.6 mg PO BEDTIME 03/10/20 12/08/24 Unknown History Laxative) Assessment and Plan Assessment Anesthesia Assessment: Chart Reviewed Documented by User: Jaspal Davila MD 12/08/24 08:57 PMFSH Past Medical History Medical History Family history of myocardial infarction Arthritis of carpometacarpal (CMC) joint of left thumb Gastritis Osteoarthritis of spine with radiculopathy, lumbar region Sprain of ulnar collateral ligament Acute bilateral thoracic back pain Overweight (BMI 25.0-29.9) Depression Anxiety Allergic rhinitis Reflex sympathetic dystrophy of left upper extremity Cervical spondylosis Primary osteoarthritis of right shoulder Pure hypercholesterolemia Migraine Family History Family History Father Prostate cancer Mother Lung cancer Hypertension CVD (cardiovascular disease) Diabetes Chronic mental illness Maternal Grandmother Colon cancer Sister History of breast cancer, Onset Age: 64 Stroke Other Mental health problem Family history of problems with anesthesia: No Surgical History Surgical History History of cervical discectomy S/P JOLENE-BSO (total abdominal hysterectomy and bilateral salpingo-oophorectomy) History of carpal tunnel release History of removal of cyst History of colonoscopy History of repair of rotator cuff History of Problems with Anesthesia: No Social History Social History Housing: House Are you a primary career orientation teacher to a significant other at home: No Do you presently have visiting nurse or other home services: No Alcohol intake: never Patient Tobacco Use Status: Former Tobacco user e-Cigarette/Vaping Use: Never Used Second Hand Smoke Exposure: Yes Have you been hit, kicked, punched, or otherwise hurt by someone within the past year? 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 Cognitive needs: No Hearing needs: No Vision needs: Yes Meds Allergies Allergy/AdvReac Type Severity Reaction Status Date / Time amoxicillin (Amoxicillin) Allergy Severe RASH Verified 12/08/24 07:58 Sulfa (Sulfonamide Allergy Severe RASH Verified 12/08/24 07:58 Antibiotics) pravastatin Allergy Unknown myalgia Verified 12/08/24 07:58 pregabalin Allergy Unknown Muscle Verified 12/08/24 07:58 cramps alirocumab (From Praluent AdvReac Intermediate increased Verified 12/08/24 07:58 Pen) joint pains, patricia in hands and knees mirtazapine AdvReac Intermediate weight Verified 12/08/24 07:58 gain and increased headaches and brain fog atorvastatin AdvReac Unknown leg pain Verified 12/08/24 07:58 and swelling ezetimibe (Zetia) AdvReac Unknown joint pain Verified 12/08/24 07:58 oxycodone (Percocet) AdvReac Unknown nausea, Verified 12/08/24 07:58 upset stomach, increased headaches rosuvastatin AdvReac Unknown myalgia Verified 12/08/24 07:58 Home Medications ?Medication ?Instructions ?Recorded ?Confirmed ?Last Taken ?Type sennosides 8.6 mg tablet (Senna 8.6 mg PO BEDTIME 03/10/20 12/08/24 Unknown History Laxative) Exam Airway Mallampati Class: II TM Dist: >3cm Neck ROM: Full Heart: ok Lungs: ok Assessment and Plan Assessment Anesthesia Assessment: Anesthesia Plan Discussed Final Anesthetic Review Family History of Problems with Anesthesia: No History of Problems with Anesthesia: No NPO: Yes ASA Class: II Final Preanesthetic Review: No Changes in Pt Med Stat, Meds/Allgs Chart Reviewed, Consent Obtained/Reviewed and Anes Risks/Benef Reviewed Patient Risk: Intermediate Procedure Risk: Intermediate Anesthetic Plan Anesthetic Plan: Agree w/ Assess. and Plan and TIVA Disposition: Standard PACU
[2024-12-08 07:47] VITALS: BP 108/48; PULSE 69; RESP 18; TEMP 36.7; O2SAT 97
[2024-12-08 07:56] VITALS: BMI 24.6
[2024-12-08] MEDS: Lactated Ringers 1,000 ML 100 ML IVCONT (08:10)
--- NOTE | 2024-12-08 08:15 | MHC.SHP ---
Pre-Procedural Eval Section A - 24 Hr Update-Section A only Date of Service: 12/08/24 Section B - Complete if H&P > 30 days Chief Complaint: Dysphagia, early satiety Details of Present Illness: PMX Overweight High cholesterol Generalized osteoarthritis Degenerative disc disease of the lumbar thoracic and cervical spines Depression with anxiety Allergic rhinitis Migraines * SURGICAL HISTORY Cervical diskectomy Total hysterectomy Carpal tunnel release bilateral Left breast cyst removal Rotator cuff repair Colonoscopy 2008, 2009, 2016 with haley normal and hyperplastic polyp * ALLERGIES AMOXICILLIN SULFA STATINS PREGABALIN OXYCODONE * Present Medications: see Short Stay Collaborative assessment Allergies: Allergies Allergy/AdvReac Type Severity Reaction Status Date / Time amoxicillin (Amoxicillin) Allergy Severe RASH Verified 12/08/24 07:58 Sulfa (Sulfonamide Allergy Severe RASH Verified 12/08/24 07:58 Antibiotics) pravastatin Allergy Unknown myalgia Verified 12/08/24 07:58 pregabalin Allergy Unknown Muscle Verified 12/08/24 07:58 cramps alirocumab (From Praluent AdvReac Intermediate increased Verified 12/08/24 07:58 Pen) joint pains, patricia in hands and knees mirtazapine AdvReac Intermediate weight Verified 12/08/24 07:58 gain and increased headaches and brain fog atorvastatin AdvReac Unknown leg pain Verified 12/08/24 07:58 and swelling ezetimibe (Zetia) AdvReac Unknown joint pain Verified 12/08/24 07:58 oxycodone (Percocet) AdvReac Unknown nausea, Verified 12/08/24 07:58 upset stomach, increased headaches rosuvastatin AdvReac Unknown myalgia Verified 12/08/24 07:58 Review of Systems Review of Systems Comment: Ten point ROS negative Exam Exam Comment: Gen appear: No acute distress HEENT: no icterus Chest: No overt resp distress Abd: soft, nontender, nondistended Psych: Stable affect, answering questions appropriately Neuro: A/Ox3 noted to move all extremities spontaneously Ext: no peripheral edema Plan Diagnosis/Plan: Unchanged I have reviewed the history and physical and performed a pertinent physical examination on my patient. No changes have occurred unless specified. Time Spent With Patient Time: Total time managing care of this patient today ____ minutes.
[2024-12-08 09:21] VITALS: BP 92/43; PULSE 62; RESP 18; TEMP 36.6; O2SAT 96
--- NOTE | 2024-12-08 09:21 | P.OP_ITS ---
Operative Note Operative Note Date of Service: 01/06/25 Narrative: Procedure: Esophagogastroduodenoscopy Endoscopist: Nadine Biggs MD Indication: Dysphagia Anesthesia Provider: Dr Jaspal Davila Anesthesia Type: MAC ?? EGD Procedure:?? The procedure, indications, preparation and potential complications were reviewed with the patient, who indicated understanding and gave written informed consent to proceed. A physical exam was performed. The endoscope was introduced through the mouth, and advanced to the second part of duodenum. The mucosa was carefully examined on slow withdrawal of the endoscope. The patient tolerated the procedure well. There were no immediate complications.? ? EGD Findings:? * Esophagus:? Trachealization and linear furrows noted in middle and lower third of the esophagus suspicious for eosinophilic esophagitis. No obvious stricture or stenosis noted. The Z line was at 37 cm. Middle and lower esophagus forceps biopsies were obtained to rule out eosinophilic esophagitis. * Stomach:? Erythema and erosions noted in the antrum. Retroflexion was performed in the cardia. Random gastric biopsies were taken to rule out H Pylori infection. * Duodenum:? Erythema and edema noted in the duodenal bulb. Remaining mucosa was noted to be normal to the extent examined. Cold forceps biopsies were taken for histology. Additional intervention: Soft tip Savary wire was introduced through the biopsy channel of the gastroscope and advanced to the antrum. ?The gastroscope was then backed out. ?Savary Nelson bougie was advanced over the guidewire and the esophagus was dilated to 17 mm without any resistance felt. ?On relook, no heme or tear was noted. ? ? EGD Impressions:? * Abnormal esophageal mucosa (biopsy) * Gastritis (biopsy) * Duodenitis (biopsy) ?? Recommendations:?? * Follow biopsy results. Our office will call or send a letter with results within 7-10 days. * If EoE confirmed, would recommend topical steroid therapy. * Start PPI therapy. * If H pylori +, patient will be prescribed eradication therapy followed by test of cure. * Avoid NSAIDs. Above has been reviewed with the patient.
[2024-12-08 09:35] VITALS: BP 109/56; PULSE 64; RESP 16; TEMP 36.6; O2SAT 96
== END 2024-12-08 09:57 | disposition home or self-care (01) ==
PROVIDERS: PCP Internal Medicine; Visit Provider Internal Medicine
PROC: 0DJ08ZZ Inspection of Upper Intestinal Tract, Via Natural or Artificial Opening Endoscopic (ICD-10-PCS; CPT 43235; principal; 2024-12-08 09:10)
DX: R13.10 Dysphagia, unspecified (principal); K29.60 Other gastritis without bleeding; K31.7 Polyp of stomach and duodenum; K22.10 Ulcer of esophagus without bleeding; K29.80 Duodenitis without bleeding; R68.81 Early satiety; E78.00 Pure hypercholesterolemia, unspecified; Z87.891 Personal history of nicotine dependence
CPT/HCPCS: 43248; 43239; 88305; 88313; 88342; C1769; J2003; J2704

== ENCOUNTER → 2024-12-08 07:24 | Outpatient (BNV) | payer MEDICARE, MEDICAID, SELFPAY | PROVIDERS: PCP Internal Medicine; Visit Provider Internal Medicine | DX: R13.10 Dysphagia, unspecified (principal); K22.89 Other specified disease of esophagus; K29.70 Gastritis, unspecified, without bleeding; K29.80 Duodenitis without bleeding | CPT/HCPCS: 43239; 43248 ==

== ENCOUNTER 2024-12-21 10:38 | Outpatient (AMB) | payer MEDICARE, MEDICAID, SELFPAY ==
[2024-12-21 10:41] VITALS: BP 110/72; PULSE 69; O2SAT 79; BMI 24.1
--- NOTE | 2024-12-21 10:41 | MHC.PC.OV ---
Vital Signs 12/21/24 10:41 Height 5 ft 6 in Weight 149 lb 8 oz BMI 24.1 BP 110/72 Blood Pressure Location Lt brachial Position Sitting Pulse 69 Pulse Source Pulse Oximeter Pulse Oximetry (%) 79 L Oxygen Delivery Method Room Air Intake Visit Reasons: 3 Months f/u Head Of English Required: No Accompanied by: Self / Same As Patient Allergies amoxicillin (Amoxicillin) Allergy (Severe, Verified 12/21/24 11:18) RASH Sulfa (Sulfonamide Antibiotics) Allergy (Severe, Verified 12/21/24 11:18) RASH pravastatin Allergy (Unknown, Verified 12/21/24 11:18) myalgia pregabalin Allergy (Unknown, Verified 12/21/24 11:18) Muscle cramps alirocumab (From Praluent Pen) Adverse Reaction (Intermediate, Verified 12/21/24 11:18) increased joint pains, patricia in hands and knees mirtazapine Adverse Reaction (Intermediate, Verified 12/21/24 11:18) weight gain and increased headaches and brain fog atorvastatin Adverse Reaction (Unknown, Verified 12/21/24 11:18) leg pain and swelling ezetimibe (Zetia) Adverse Reaction (Unknown, Verified 12/21/24 11:18) joint pain oxycodone (Percocet) Adverse Reaction (Unknown, Verified 12/21/24 11:18) nausea, upset stomach, increased headaches rosuvastatin Adverse Reaction (Unknown, Verified 12/21/24 11:18) myalgia Medication List - Last Reconciled 12/21/24 by Claude Steele MD citalopram 40 mg PO DAILY 90 days evolocumab (Jerome Major) 140 mg subcut Q2W fluticasone propionate 50 mcg/actuation 2 sprays intranasal DAILY PRN 30 days hydrocodone-acetaminophen 7.5-325 mg 1 tab PO .4x a day PRN 28 days lorazepam 1 mg PO QID PRN 30 days omeprazole 40 mg PO DAILY 90 days sennosides (Senna Laxative) 8.6 mg PO BEDTIME sumatriptan succinate 100 mg PO as directed as needed. may repeat one more time if needed; 30 days zolpidem 10 mg PO BEDTIME PRN NS Tobacco use date assessed: 12/21/24 Dental Screening Dental Screen Date: 12/21/24 Did you have a dental visit in the last 12 months?: No Did you have a dental problem in the last 6 months where you did not have access to dental care?: No Was dental information given to patient?: No HPI 3 Months f/u HPI Details Patient comes in today for her follow up visit States that she continues to feel very fatigued often and is wondering if she can be checked for a thyroid condition called Yojana's disease, which one of her friends has and she reports feeling the exact same way that patient does often Patient also continues to struggle with falling sleeping and sleeping through the night - states that she still wakes up a few times in the middle of the night for no particular reason She denies any headaches or dizziness Denies any chest pains, no increased SOB No nausea/vomiting but she reports experiencing frequent and sometimes sharp periumbilical and lower abdominal pains lately shortly after she eats something No change in bowel habits noted States that she had an upper endoscopy done by Dr. Biggs at [facility] a couple of weeks ago and she was started on Omeprazole 40 mg QD recently She has a follow up appointment with GI tomorrow to discuss her recent EGD findings and treatment plan going forward She needs her Lorazepam Rx refilled today She was not able to get her follow up labs done prior to coming in for her appointment today [facility] Medical History (Updated 12/21/24 @ 12:43 by Claude Steele MD) Family history of myocardial infarction Arthritis of carpometacarpal (CMC) joint of left thumb Gastritis Osteoarthritis of spine with radiculopathy, lumbar region Sprain of ulnar collateral ligament Acute bilateral thoracic back pain Overweight (BMI 25.0-29.9) Depression Anxiety Allergic rhinitis Reflex sympathetic dystrophy of left upper extremity Cervical spondylosis Primary osteoarthritis of right shoulder Pure hypercholesterolemia Migraine Surgical History (Updated 12/21/24 @ 12:08 by Claude Steele MD) History of esophagogastroduodenoscopy History of cervical discectomy S/P JOLENE-BSO (total abdominal hysterectomy and bilateral salpingo-oophorectomy) History of carpal tunnel release History of removal of cyst History of colonoscopy History of repair of rotator cuff Family History Father Prostate cancer Mother Lung cancer Hypertension CVD (cardiovascular disease) Diabetes Chronic mental illness Maternal Grandmother Colon cancer Sister History of breast cancer, Onset Age: 64 Stroke Other Mental health problem Social History Housing: House Are you a primary care director rn to a significant other at home: No Do you presently have visiting nurse or other home services: No Alcohol intake: never Patient Tobacco Use Status: Former Tobacco user e-Cigarette/Vaping Use: Never Used Second Hand Smoke Exposure: Yes service: No Current occupational status: employed 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 1. Little interest or pleasure in doing things: several days 2. Feeling down, depressed, or hopeless: several days 3. Trouble falling or staying asleep, or sleeping too much: several days 4. Feeling tired or having little energy: several days 5. Poor appetite or overeating: several days 6. Feeling bad about yourself - or that you are a failure or have let yourself or your family down: several days 7. Trouble concentrating on things, such as reading the newspaper or watching television: several days 8. Moving or speaking so slowly that other people could have noticed. Or the opposite - being so fidgety or restless that you have been moving around a lot more than usual: several days 9. Thoughts that you would be better off or of hurting yourself in some way: not at all Total score: 8 Depression Screening Interpretation: Positive Depression Screening Follow-up: Existing condition and In treatment Depression Screening Done: Yes 01050 - PHQ-9 Billing: Yes Source: Developed by Drs. Eulogio Obregon, Marianela Smith, Alec Zapata and colleagues, with an educational sunshine from [employer]. Thrive Questionnaire Date Thrive assessed: 12/21/24 I am a: Patient What is your living situation today?: I have a steady place to live Within the past 12 months, did the food you bought not last and you didn't have the money to get more?: Never true Within the past 12 months, did you worry whether your food would run out before you got money to buy more?: Never true Do you have trouble paying for medicines?: No Do you have trouble getting transportation to medical appointments?: No Do you have trouble paying your heating and electricity bill?: I choose not to answer this question Do you have trouble taking care of your child, family member or friend?: No Do you have trouble with day-to-day activities such as bathing, preparing meals, shopping, managing finances, etc.?: No Are you currently unemployed and looking for a job?: I choose not to answer this question Are you interested in more education?: No Please select the resources that you would like help with: None Currently or been in a relationship where the following occur: No concerns reported THRIVE Score: 0 AUDIT C Alcohol Use Questionnaire (AUDIT-C) 1. How often do you have a drink containing alcohol?: Never 3. How often do you have six or more drinks on one occasion?: Never Total Score: 0 Score Reviewed/Action Taken: Yes WALE-7 AMB Questionnaire WALE-7 Date WALE - 7 assessed: 12/21/24 Feeling nervous, anxious, or on edge: 1 = Several days Not being able to stop or control worryin = Several days Worrying too much about different things: 1 = Several days Trouble relaxin = Several days Being so restless that it is hard to sit still: 1 = Several days Becoming easily annoyed or irritable: 1 = Several days Feeling afraid as if something awful might happen: 1 = Several days Total WALE-7 score (0-4 normal; 5-9 mild; 10-14 moderate; 15-21 severe): 7 Source: Developed by Drs. Eulogio Obregon, Marianela Smith, Alec Zapata and colleagues, with an educational sunshine from [employer]. Review of Systems Const Denies chills, Reports difficulty sleeping, Reports fatigue (increased lately), Denies fever(s) and Denies headache(s) ENT Reports dysphagia (feels like she is being choked at times), Denies dizziness, Denies otalgia, Denies headache(s), Reports neck pain (chronic), Denies odynophagia and Denies sore throat Card Denies chest pain, Denies rapid heart rate, Denies irregular heart rhythm, Denies palpitations and Denies dyspnea Resp Denies chest congestion, Denies cough and Denies dyspnea GI Reports abdominal pain (on and off sharp pains usually when she eats something - see HPI), Reports constipation (chronic - mainly due to her pain meds), Reports dysphagia (feels like she is being choked at times), Denies heartburn, Denies diarrhea, Denies nausea, Denies odynophagia and Denies vomiting Denies hematuria, Denies difficulty voiding, Denies nocturia, Denies dysuria, Denies urinary incontinence and Denies urinary urgency Musc Reports back pain (over the lower back - chronic), Reports arthralgias (over the left shoulder and left wrist), Reports neck pain (chronic) and Reports radiating pain into limb (left arm) Skin/Breast Denies rash Neuro Denies dizziness, Denies headache(s) and Denies paresthesias Endo Reports fatigue (increased lately) and Denies palpitations Jose/Lymph Denies easy bruising Physical exam (Primary Care) Vital Signs: Last Vital Signs Pulse 69 12/21/24 10:41 BP 110/72 12/21/24 10:41 Pulse Ox 79 L 12/21/24 10:41 Oxygen Delivery Method Room Air 12/21/24 10:41 BMI result Body Mass Index 24.1 Tobacco/Smoking Status: Tobacco use Status Tobacco use date assessed 12/21/24 12/21/24 10:42 Patient Tobacco Use Status Former Tobacco user 12/21/24 10:42 e-Cigarette/Vaping Use Never Used 12/21/24 10:42 PHQ-9: PHQ-9 Score PHQ-9: Total score 8 12/21/24 10:42 Depression Screening Interpretation: Positive Depression Screening Follow-up: Existing condition and In treatment Thrive Assessment: Date of Thrive Assessment Date Thrive assessed 12/21/24 12/21/24 10:48 Currently or been in a relationship where the following occur: No concerns reported Const General: no acute distress and alert HENMT Ears: TM's normal bilaterally and EAC's normal Throat: Yes posterior oropharynx normal and Yes tonsils normal (no TP congestion) Neck Neck: No lymphadenopathy and Yes tender Thyroid: Thyroid normal Resp Auscultation: clear to auscultation bilaterally, no rales and no wheezes Cardio Rate: regular rate Rhythm: regular rhythm Heart sounds: no murmurs GI Palpation (GI): Soft to palpation and nontender Auscultation: normal bowel sounds General: Yes no CVA tenderness Back/Spine/Pelvis Back: no CVA tenderness Cervical Spine: Cervical spine tenderness Thoracic/Lumbar Spine: paraspinal muscle tenderness bilaterally in the lower thoracic and lumbar spinal tenderness Sacroiliac joints: on the left tender to palpation Skin Rashes: no rashes Extrem General: Yes no clubbing, cyanosis or edema Left upper extremity: wrist ((+) tenderness) Coding Level of Care Code Est Pt Level 4 (62343) Diagnoses Pure hypercholesterolemia E78.00 Migraine without status migrainosus, not intractable, unspecified migraine type G43.909 Migraine type: unspecified Status migrainosus presence: without status migrainosus Intractability: not intractable Gastritis without bleeding, unspecified chronicity, unspecified gastritis type K29.70 Gastritis type: unspecified gastritis Chronicity: unspecified Gastritis bleeding: without bleeding Reflex sympathetic dystrophy of left upper extremity G90.512 Cervical spondylosis M47.812 Osteoarthritis of spine with radiculopathy, lumbar region M47.26 Arthritis of carpometacarpal (CMC) joint of left thumb M18.12 Chronic fatigue R53.82 Fatigue type: chronic, unspecified Episode of recurrent major depressive disorder, unspecified depression episode severity F33.9 Depression Type: major depressive disorder Major depression recurrence: recurrent Active/Remission status: currently active Major depression episode severity: unspecified Allergic rhinitis, unspecified seasonality, unspecified trigger J30.9 Allergic rhinitis trigger: unspecified Allergic rhinitis seasonality: unspecified Anxiety F41.9 Additional Codes PHQ-9 - 67410 - PHQ-9 Billing: Yes ([id number]) Assessment & Plan Assessment & Plan (1) Pure hypercholesterolemia: Code(s): E78.00 - Pure hypercholesterolemia, unspecified Category: Medical Plan: Patient was not able to get her previously ordered labs done before coming in for her appointment today so we do not have her follow up cholesterol numbers to go over at this visit She is again cautioned that her cholesterol levels have increased significantly from previous when they were previously checked a few months ago in August 2024 (LDL cholesterol was up at 154 mg/dl), most likely because she was not taking her cholesterol Rx injections at the time Patient states that she has been taking her Repatha injections regularly since her last visit and appears to be tolerating the medication without any significant issues (she had problems tolerating Praluent due to increased joint pains while on the Rx) Hve advised her to go and get her follow up labs done MANDI and we will reach out to her if any of her labs come back with unexpected results Reinforced low-cholesterol diet Continue Repatha injections 140 mg SQ every 2 weeks Will have patient recheck her labs and fasting lipids again in 4 months for follow-up (2) Migraine: Code(s): G43.909 - Migraine, unspecified, not intractable, without status migrainosus Category: Medical Qualifiers: Migraine type: unspecified Status migrainosus presence: without status migrainosus Intractability: not intractable Qualified Code(s): G43.909 - Migraine, unspecified, not intractable, without status migrainosus Plan: Reinforced avoidance of all potential migraine triggers Continue Sumatriptan 50 mg PRN (3) Gastritis: Code(s): K29.70 - Gastritis, unspecified, without bleeding Category: Medical Qualifiers: Gastritis type: unspecified gastritis Chronicity: unspecified Gastritis bleeding: without bleeding Qualified Code(s): K29.70 - Gastritis, unspecified, without bleeding Plan: Dietary restrictions reinforced Continue Omeprazole 40 mg QD - she was on Pantoprazole previously Patient underwent EGD with Dr. Biggs at [facility] a couple of weeks ago on 12/09/2024 - EGD revealed (+) finding of abnormal esophageal mucosa (eosinophilic esophagitis was suspected), gastritis and duodenitis Biopsies done all came out negative for intestinal metaplasia or dysplasia; gastric Bx was negative for H. pylori The duodenal biopsy did mention (+) detached fragment of fibrino-inflammatory exudate suggesting erosion/ulcer - patient is advised to speak to GI about this at her follow up appointment tomorrow for more clarity on this as well as her recent postprandial abdominal pain, which patient feels started after her EGD a couple of weeks ago (4) Reflex sympathetic dystrophy of left upper extremity: Code(s): G90.512 - Complex regional pain syndrome I of left upper limb Category: Medical Plan: Patient states that her chronic arm pain remains adequately controlled on her current Rx (5) Cervical spondylosis: Comment: S/P C5-C6 ACDF a couple of years ago - neck still feels sore frequently but left arm weakness has improved with surgery Code(s): M47.812 - Spondylosis without myelopathy or radiculopathy, cervical region Category: Medical Plan: Continue Cyclobenzaprine 10 mg 3 times a day as needed (6) Osteoarthritis of spine with radiculopathy, lumbar region: Code(s): M47.26 - Other spondylosis with radiculopathy, lumbar region Category: Medical Plan: Reinforced activity and weight-lifting restrictions She could not tolerate physical therapy in the past; cortisone injections in the past at [facility] have helped temporarily She has also received epidural injections from [facility] for a few months a couple of years ago, with variable results She was seen by Dr. Darien Monroe at [facility] in the past and also had a couple of SI joint injections that she states helped only temporarily She was then referred to Dr. Salvador Hurt in [place] and underwent MIS fixation of left sacroiliac joint for stabilization on 02/28/22, followed by physical therapy Pateint states that the surgery helped her somewhat but we have not received any further updates on her condition via correspondence or OV notes from her doctors in [place] since her surgery Reports that her pain has gradually gotten worse again a few months after her surgery and have progressed/gotten worse since Continue Hydrocodone-Acetaminophen 7.5-325 mg 1 tablet 4 times a day as needed for increased pain (7) Arthritis of carpometacarpal (CMC) joint of left thumb: Code(s): M18.12 - Unilateral primary osteoarthritis of first carpometacarpal joint, left hand Category: Medical Plan: MRI of the left wrist done a couple of years ago revealed (+) severe OA changes in the wrist Follow up with orthopedics as scheduled (8) Fatigue: Code(s): R53.83 - Other fatigue Category: Medical Qualifiers: Fatigue type: chronic, unspecified Qualified Code(s): R53.82 - Chronic fatigue, unspecified Plan: Patient reports feeling increasingly fatigued lately and is concerned that she may have Yojana's disease as one of her friends was diagnosed with this recently and she has supposedly a lot of symptoms similar to what patient has Have advised patient that I can include some tests with her current labs and she can get all of these done at the same time (her TSH was normal when last checked in September 2023) but have advised her that her increasing fatigue recently is still most likely related to her poor sleep quality and difficulty sleeping through the night (chronic insomnia) and this should be addressed properly for her to have any shot at feeling better (9) Depression: Code(s): F32.9 - Major depressive disorder, single episode, unspecified Category: Medical Qualifiers: Depression Type: major depressive disorder Major depression recurrence: recurrent Active/Remission status: currently active Major depression episode severity: unspecified Qualified Code(s): F33.9 - Major depressive disorder, recurrent, unspecified Plan: Continue Citalopram 40 mg QD Follow-up with Psychiatry as scheduled (10) Allergic rhinitis: Code(s): J30.9 - Allergic rhinitis, unspecified Category: Medical Qualifiers: Allergic rhinitis trigger: unspecified Allergic rhinitis seasonality: unspecified Qualified Code(s): J30.9 - Allergic rhinitis, unspecified Plan: Continue Fluticasone 50 mcg nasal spray QD PRN (11) Anxiety: Code(s): F41.9 - Anxiety disorder, unspecified Category: Medical Plan: Continue Lorazepam 1 mg 4 times a day as needed - Rx refilled We tried starting patient additionally on Doxepin 25 mg Q HS previously but patient states that this did not help at all Plan Follow up in 4 months Orders: Orders TSH reflex Free T4 Today E78.00 - Pure hypercholesterolemia, unspecified Thyroid Peroxidase Antibodies Today R79.89 - Other specified abnormal findings of blood chemistry Comprehensive [place]. Panel Fast 4 Months E78.00 - Pure hypercholesterolemia, unspecified Lipid Panel 4 Months E78.00 - Pure hypercholesterolemia, unspecified Medications: Refilled lorazepam 1 mg PO QID PRN 120 tabs 1RF anxiety 30 days
--- OUTSIDE RECORDS SUMMARY | 2024-12-21 11:39 | XMS_ITS | Clinical Summary ---
Author Organization [address] [place] [address] Address [address] [place] [address] Phone Care Team Providers Care Information Systems Planner Name Role Phone Claude Steele MD Primary [...] 2018 Zoster Vaccines (1 of 2) 2018 Cholesterol Screening (Lipid Panel) 04/03/2022 Colorectal Cancer Screening: Colonoscopy 04/03/2022 HIV Screening 04/03/2022 Hepatitis C Screening 04/03/2022 Lung Cancer Screening (Low Dose CT) 04/03/2022 Medicare Annual Wellness Visit 04/03/2022 Social Influencers of Health Screening 04/03/2022 COVID-19 Vaccine (3 - 2023-2 5 season) 2024 09/18/2020, 08/21/2020 Depression Screening 05/06/2024 Influenza Vaccine (#1) 2025 03/08/2005 HIB Vaccines [...] Insurance MEDICAID - [place] MEDICARE Care Teams Information Systems Planner Relationship Specialty Start Date End Date Claude Steele MD [address] [place] [address] Jose Roberto [address] [place] [address] PCP - General Internal Medicine 12/30/17
--- OUTSIDE RECORDS SUMMARY | 2024-12-21 11:39 | XMS_ITS | Encounter Summary ---
Author Organization [facility] Address [address] [facility] [address] [place] [id number] Phone Care Team Providers Care Weaver Tire Cord Name Role Phone Claude Steele MD Primary Care Provider [phone] Encounter Details Date Type Department Care Team (Late st Contact Info) Description 10/27/2021 Procedure Pass [facility], [address] [address] Social History Tobacco Use Types Packs/Day Years Used Date Smoking Tobacco: Former Smokeless Tobacco: Current Comments Unknown Sex and Gender Information Value Date Recorded Sex Assigned at Female 07/20/2021 1:02 PM EDT Legal Sex Female 12:58 PM EDT Gender Identity Female 07/20/2021 1:02 PM EDT Sexual Orientation Straight 07/20/2021 1: 02 PM EDT documented as of this encounter Plan of Treatment Not on file documented as of this encounter Visit Diagnoses Not on filedocumented in this encounter Care Teams [employer] Relationship Specialty Start Date End Date Claude Steele MD [address] [place] [address] [place] [address] PCP - General Internal Medicine 07/20/21 documented as of this encounter Additional Source Comments The information contained in this document represents components of the legal health record. It is not the complete legal health record.[facility]
--- OUTSIDE RECORDS SUMMARY | 2024-12-21 11:39 | XMS_ITS | Clinical Summary ---
Author Organization [employer] Address [address] [facility] [address] [place] [address] Care Team Providers Care Commissioned Police Officer Name Role Phone Unavailable Primary Care Provider [...] NEEDED FOR SLEEP 4 Active HYDROcodone-jacky taminophen ([place]) 7.5-325 MG tablet TAKE ONE TABLET BY [...] Most Recently Relevant to Health Maintenance Insurance [facility] MEDICAID STAND ADULT
--- OUTSIDE RECORDS SUMMARY | 2024-12-21 11:39 | XMS_ITS | Encounter Summary ---
Author Organization [facility] Address [address] [place] [address] Care Team Providers Care Balloon Design Printer Name Role Phone Darien Monroe MD Unavailable [phone] Claude Steele MD Primary Care Provider [phone] Salvador Hurt MD Unavailable [phone] Encounter Details Date Type Department Care Team (Late st Contact Info) Description 01/26/2022 Scanned Document [facility] Neurosurgery [address] [id number] Neurosurgery, Scan Social History Tobacco Use Types [...] on filedocumented in this encounter Care Teams Balloon Design Printer Relationship Specialty Start Date End Date Claude Steele MD [address] [place] [address] [place] [address] PCP - General Internal Medicine 10/31/21 Darien Monroe MD [address] [place] [address] Physician Psychiatry, General 10/31/21 Salvador Hurt MD [address] [address] Surgery, Neurosurgery 02/08/22 documented as of this encounter
--- OUTSIDE RECORDS SUMMARY | 2024-12-21 11:39 | XMS_ITS | Patient Health Record ---
Author Organization [facility] Address [address] [place] [phone] Care Team Providers Care Parimutuel Ticket Seller Name Role Phone Cedric CRUZ, [place] Primary Care Provider Tuan Mata Jr Allergies Allergen (clinical drug ingredient) Drug/Non Drug [...] Problem Status W/U Status Risk Notes Problem [id number] Rectal bleeding (K62.5) Active confirmed Plan Of Treatment Future Test Test Name Order Date COLONOSCOPY 04/27/2015 Insurance Providers Payer Name Payer Address Payer Phone Subscriber Number Group Number Insured Name Patient Relationship to Insured Coverage Start Date Coverage End Date [facility] [address] [place], [place] [id number] [phone] [id number] DARELL MENENDEZ Self - patient is the insured Medical (General) History Medical History History ICD Code colonoscopy 02-15-2010 colitis Denies [place],DM,CVA,Lung disease,renal dise ase ovarian cysts Surgical History Surgery Date(Month/Year) right shoulder surgery hysterectomy 2011
== END 2024-12-21 11:40 | disposition home or self-care (01) ==
LOC: HO.HMCH 10:39
PROVIDERS: PCP Internal Medicine; Visit Provider Internal Medicine
DX: E78.00 Pure hypercholesterolemia, unspecified (principal); G43.909 Migraine, unspecified, not intractable, without status migrainosus; K29.70 Gastritis, unspecified, without bleeding; G90.512 Complex regional pain syndrome I of left upper limb; M47.812 Spondylosis without myelopathy or radiculopathy, cervical region; M47.26 Other spondylosis with radiculopathy, lumbar region; M18.12 Unilateral primary osteoarthritis of first carpometacarpal joint, left hand; R53.82 Chronic fatigue, unspecified; F33.9 Major depressive disorder, recurrent, unspecified; J30.9 Allergic rhinitis, unspecified; F41.9 Anxiety disorder, unspecified

== ENCOUNTER → 2024-12-21 10:38 | Outpatient (BNVA) | payer MEDICARE, MEDICAID, SELFPAY | PROVIDERS: PCP Internal Medicine; Visit Provider Internal Medicine | DX: E78.00 Pure hypercholesterolemia, unspecified (principal); G43.909 Migraine, unspecified, not intractable, without status migrainosus; K29.70 Gastritis, unspecified, without bleeding; G90.512 Complex regional pain syndrome I of left upper limb; M47.812 Spondylosis without myelopathy or radiculopathy, cervical region; M47.26 Other spondylosis with radiculopathy, lumbar region; M18.12 Unilateral primary osteoarthritis of first carpometacarpal joint, left hand; F33.9 Major depressive disorder, recurrent, unspecified; J30.9 Allergic rhinitis, unspecified; F41.9 Anxiety disorder, unspecified | CPT/HCPCS: 96127; 99212 ==

== ENCOUNTER 2024-12-22 12:29 | Outpatient (AMB) | payer MEDICARE, MEDICAID, SELFPAY ==
--- NOTE | 2024-12-22 12:58 | A.OFFVIS_ITS ---
Vital Signs 12/22/24 12:59 Height 5 ft 6 in Weight 147 lb 11.355 oz BMI 23.8 BP 113/54 L Blood Pressure Location Lt brachial Position Sitting Pulse 69 Intake Visit Reasons: s/p egd Kalyan Intake Note: Dulce presents in the office as a follow up EGD. CC: She states that she is having some concerns - she states she is having stomach pains after she eats. Her lower abdomen. She states that her gas has been extra as well. PCP Told her to bring up pushing having a colonoscopy a little sooner than July. Ict Analyst Required: No Allergies amoxicillin (Amoxicillin) Allergy (Severe, Verified 12/22/24 13:12) RASH Sulfa (Sulfonamide Antibiotics) Allergy (Severe, Verified 12/22/24 13:12) RASH pravastatin Allergy (Unknown, Verified 12/22/24 13:12) myalgia pregabalin Allergy (Unknown, Verified 12/22/24 13:12) Muscle cramps alirocumab (From Praluent Pen) Adverse Reaction (Intermediate, Verified 12/22/24 13:12) increased joint pains, patricia in hands and knees mirtazapine Adverse Reaction (Intermediate, Verified 12/22/24 13:12) weight gain and increased headaches and brain fog atorvastatin Adverse Reaction (Unknown, Verified 12/22/24 13:12) leg pain and swelling ezetimibe (Zetia) Adverse Reaction (Unknown, Verified 12/22/24 13:12) joint pain oxycodone (Percocet) Adverse Reaction (Unknown, Verified 12/22/24 13:12) nausea, upset stomach, increased headaches rosuvastatin Adverse Reaction (Unknown, Verified 12/22/24 13:12) myalgia HPI HPI s/p egd Kalyan: Details: Assessment & Plan (1) Dysphagia: Code(s): R13.10 - Dysphagia, unspecified Category: Medical (2) Early satiety: Code(s): R68.81 - Early satiety Category: Medical (3) Weight loss, unintentional: Code(s): R63.4 - Abnormal weight loss Category: Medical (4) Thrombocytopenia: Code(s): D69.6 - Thrombocytopenia, unspecified Category: Medical (5) Arthralgia: Code(s): M25.50 - Pain in unspecified joint Category: Medical Plan Onset 1 year ago with rapid wt loss and a severe lack of appetite not hungry after 2 bites. She started losing s lot of hair. She will frequently have pain in the LLQ after eating and increased gas and bloating. She is having dy sphagia at the level of the voice box mostly with liquids and I will choke. She also will have the feeling like someone has their hand around my neck and is choking me. This will happen randomly and intermittently and is not r/t eating. She takes senna to offset CIC r/t pain medication. This is working well. No new meds, no illness preceding. Her mother and sister had cholecystectomy and a sister has colitis. She moves her bowels well formed with corn and ice cream at times causing CIC, no diarrhea. No N/V. No pain except LLQ occasional. She is NOT diabetic but has significant early satiety. Getting EGD, US, GES, autoimmune work up as well. Start protonix and ROV 6 weeks. Orders: Orders EGD - GI Use Only 12/26/23 R13.10 - Dysphagia, unspecified NM gastric emptying study 12/26/23 R63.4 - Abnormal weight loss, R13.10 - Dysphagia, unspecified C Reactive Protein 12/26/23 D69.6 - Thrombocytopenia, unspecified, R63.4 - Abnormal weight loss, M25.50 - Pain in unspecified joint Cyclic Citrullinated Peptide 12/26/23 D69.6 - Thrombocytopenia, unspecified, R63.4 - Abnormal weight loss, M25.50 - Pain in unspecified joint US abdomen complete 12/26/23 R13.10 - Dysphagia, unspecified FLOYD Reflex Titer and Pattern 12/26/23 D69.6 - Thrombocytopenia, unspecified, R63.4 - Abnormal weight loss, M25.50 - Pain in unspecified joint Erythrocyte Sedimentation Rate 12/26/23 D69.6 - Thrombocytopenia, unspecified, R63.4 - Abnormal weight loss, M25.50 - Pain in unspecified joint Medications: New pantoprazole (Protonix) 40 mg PO DAILY 30 tabs 6RF 30 days LABS: Laboratory Tests 12/26/23 13:54 ESR 7 C-Reactive Protein < 0.04 Cycl Citrul Peptide IgG <16 ULTRASOUND OF THE ABDOMEN Not obtained GASTRIC EMPTYING STUDY Not obtained EGD EGD Findings:? * Esophagus:? Trachealization and linear furrows noted in middle and lower third of the esophagus suspicious for eosinophilic esophagitis. No obvious stricture or stenosis noted. The Z line was at 37 cm. Middle and lower esophagus forceps biopsies were obtained to rule out eosinophilic esophagitis. * Stomach:? Erythema and erosions noted in the antrum. Retroflexion was performed in the cardia. Random gastric biopsies were taken to rule out H Pylori infection. * Duodenum:? Erythema and edema noted in the duodenal bulb. Remaining mucosa was noted to be normal to the extent examined. Cold forceps biopsies were taken for histology. Additional intervention: Soft tip Savary wire was introduced through the biopsy channel of the gastroscope and advanced to the antrum. ?The gastroscope was then backed out. ?Savary Nelson bougie was advanced over the guidewire and the esophagus was dilated to 17 mm without any resistance felt. ?On relook, no heme or tear was noted. ? ? EGD Impressions:? * Abnormal esophageal mucosa (biopsy) * Gastritis (biopsy) * Duodenitis (biopsy)?? Recommendations:?? * Follow biopsy results. Our office will call or send a letter with results within 7-10 days. * If EoE confirmed, would recommend topical steroid therapy. * Start PPI therapy. * If H pylori +, patient will be prescribed eradication therapy followed by test of cure. * Avoid NSAIDs. BIOPSY Received: 12/08/24 Diagnosis A. Duodenum, biopsy: Duodenal mucosa with predominantly preserved villi, features of chronic/non- specific duodenitis, and detached fragment of fibrino-inflammatory exudate suggesting erosion/ulcer.. B. Stomach, random, biopsy: Gastric antral mucosa with minimal chronic inactive gastritis; negative for H. pylori, intestinal metaplasia and dysplasia, and detached fragment of duodenal type mucosa (likely contaminant). C. Gastric polyp: Fundic gland polyp with minimal chronic inactive inflammation; negative for H. pylori, intestinal metaplasia and dysplasia. D. Esophagus, lower, biopsy: Squamous mucosa with no specific change and columnar mucosa with focal minimal chronic inflammation; negative for intestinal metaplasia and dysplasia E. Esophagus, middle, biopsy: Squamous mucosa with no specific change; no columnar mucosa present TODAY'S VISIT [facility] Medical History (Updated 12/22/24 @ 15:10 by STEVE Lazcano) Gastritis Encounter for well woman exam with routine gynecological exam Family history of myocardial infarction Arthritis of carpometacarpal (CMC) joint of left thumb Osteoarthritis of spine with radiculopathy, lumbar region Sprain of ulnar collateral ligament Acute bilateral thoracic back pain Overweight (BMI 25.0-29.9) Depression Anxiety Allergic rhinitis Reflex sympathetic dystrophy of left upper extremity Cervical spondylosis Primary osteoarthritis of right shoulder Pure hypercholesterolemia Migraine Surgical History History of esophagogastroduodenoscopy History of cervical discectomy S/P JOLENE-BSO (total abdominal hysterectomy and bilateral salpingo-oophorectomy) History of carpal tunnel release History of removal of cyst History of colonoscopy History of repair of rotator cuff Family History Father Prostate cancer Mother Lung cancer Hypertension CVD (cardiovascular disease) Diabetes Chronic mental illness Maternal Grandmother Colon cancer Sister History of breast cancer, Onset Age: 64 Stroke Other Mental health problem Social History Housing: House Are you a primary director long term care to a significant other at home: No Do you presently have visiting nurse or other home services: No Alcohol intake: never Patient Tobacco Use Status: Former Tobacco user e-Cigarette/Vaping Use: Never Used Second Hand Smoke Exposure: Yes service: No Current occupational status: employed 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 Cognitive needs: No Hearing needs: No Vision needs: Yes Review of Systems Const Reports fatigue, Denies fever(s), Denies night sweats, Denies poor appetite and Denies weight loss ENT Reports Normal hearing present, Denies dental pain, Denies dysphagia, Denies hearing loss, Denies mouth pain, Denies odynophagia, Denies throat swelling, Denies tongue swelling and Reports other (Dentition adequate) Card Reports no additional complaints Resp Reports no additional complaints GI Details: Reports abdominal pain, Denies melena, Denies bloating, Denies hematochezia, Denies constipation, Denies GI cramping, Denies dysphagia, Denies excessive flatus, Denies early satiety, Reports heartburn, Denies diarrhea, Denies nausea, Denies odynophagia, Denies vomiting and Denies hematemesis Musc Reports myalgias and Reports arthralgias Skin/Breast Denies pruritus, Denies lesions, Denies rash and Denies jaundice Neuro Reports Normal hearing present and Denies Abnormal speech present Endo Reports fatigue Aller/Immun Denies throat swelling and Denies tongue swelling Physical Exam Vital Signs: Last Vital Signs Pulse 69 12/22/24 12:59 BP 113/54 L 12/22/24 12:59 BMI result Body Mass Index 23.8 Const General: cooperative, no acute distress, well developed and well groomed Nutritional Appearance: average body habitus and well nourished Orientation/consciousness: oriented to person, oriented to place and oriented to time Limitations: No language barrier HEENT Head: Yes normocephalic and Yes atraumatic Eyes General: appearance normal, both eyes and all related structures Pupils: Equal, round and reactive pupils present Neck Neck: Yes normal visual inspection and Yes no lymphadenopathy Thyroid: Thyroid normal Resp Effort & Inspection: normal respiratory effort and able to speak in complete sentences Auscultation: clear to auscultation bilaterally Cardio Rate: regular rate Rhythm: regular rhythm Heart sounds: Normal, physiologic split S2 sound present Peripheral pulses: radial pulses present and posterior tibial pulses present GI Inspection: No distended and No Abdominal panniculus present Palpation (GI): Soft to palpation, nontender, no guarding, not rigid and No hepatosplenomegaly present Percussion: Yes normal to percussion Auscultation: normal bowel sounds Rectal Exam - Female: deferred Skin General skin exam: no rashes or lesions noted, turgor normal, skin not dry, no j aundice, No spider nevi and no striae Rashes: no rashes Nails: normal Neuro General: oriented to person, oriented to place and oriented to time Cranial nerves: Yes Equal, round and reactive pupils present and Yes Normal hearing present Speech: No Abnormal speech present Extrem General: Yes normal to inspection, No clubbing, No cyanosis and No edema Psych Appearance: grossly normal and well kempt Mental Status: mental status grossly normal Speech and movement: Normal speech and movement present Affect: normal affect Attitude: cooperative Thought process: Normal thought process present and not confabulating Thought content: Normal thought content present Insight: Good insight present (Psych) Judgement: Good judgement present (Psych) Assessment & Plan Assessment & Plan (1) Diarrhea: Code(s): R19.7 - Diarrhea, unspecified Category: Medical (2) Dysphagia: Code(s): R13.10 - Dysphagia, unspecified Category: Medical (3) Nausea & vomiting: Code(s): R11.2 - Nausea with vomiting, unspecified Category: Medical (4) Erosive gastritis: Code(s): K29.60 - Other gastritis without bleeding Category: Medical (5) Erosive esophagitis: Code(s): K22.10 - Ulcer of esophagus without bleeding Category: Medical (6) Family history of colon cancer in mother: Code(s): Z80.0 - Family history of malignant neoplasm of digestive organs Category: Medical (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 - The patient has a history of chronic GERD with endoscopic findings of erosive esophagitis and gastritis. Symptoms include felinization of the esophagus, small gastric ulcers, and significant postprandial pain and bloating. She did not tolerate the pantoprazole related to nausea so she went back on omeprazole 40 mg in his tolerating this better. Since I last saw her she is having much less nausea and vomiting but still has quite a bit of pain with eating ?when the food hits my stomach. ? - There was a previous clinical suspicion of eosinophilic esophagitis, though this was not confirmed by biopsy. She underwent an esophageal dilation procedure which provided limited relief for swallowing difficulties. - The patient's constipation persists despite various treatments, requiring intermittent use of laxatives like Magnesium Citrate and [place]. - The family history is significant for colon cancer, in her maternal grandmother and 2 maternal uncles with her mother having colon polyps; the family members suffered cancer in their 50s. -She reports persistent fatigue and weight gain, accompanied by joint pain, for which further thyroid function testing is planned via her primary care provider. In the past it was thought that she was fatigued because she was losing weight and getting insufficient nutrition but this is now turning around. - There are concerns about possible gallbladder dysfunction, but relevant diagnostic studies were not yet completed. Patient was informed and verbally consented to the use of an ambient scribe for clinic note documentation during this visit. Discussion Notes During the visit, I explained the potential diagnoses related to her gastrointestinal symptoms, including the confirmed presence of erosive esophagitis, gastritis, and gastric ulcers. We discussed medication strategies, emphasizing the importance of consistent acid suppression with Omeprazole and the temporary use of Carafate and Famotidine. She was also educated that the Carafate needs to be isolated once a day well away from her other chronic medications so that it does not prevent absorption. If she becomes constipated she will utilize senna and if this is insufficient she will call the office for additional help. I stressed the need for rescheduling an ultrasound and gastric emptying study to assess for possible gastroparesis contributing to her esophageal damage via fermentation (also because of her history of nausea and vomiting) an ultrasound to make sure there is not gallbladder pathology as a contributing factor. She has a family history of gallbladder disease in her mother. n. Patient Instructions - Take Omeprazole 40 mg each morning as directed. I am also adding famotidine at bedtime. - Take Carafate midday, separate from other medications. - Use Katey as needed for constipation relief. - Await scheduling details for ultrasound and gastric emptying study. - Attend the ordered colonoscopy once scheduled. - Follow instructions provided by Dr. Steele for thyroid testing. - Return for follow-up in six weeks or sooner if symptoms worsen. - Contact the office if experiencing severe side effects or new symptoms. Return office visit in 6 weeks. Orders: Orders Colonoscopy - GI Use Only Today Z80.0 - Family history of malignant neoplasm of digestive organs Medications: New famotidine (Pepcid) 40 mg PO BEDTIME 30 tabs 6RF bisacodyl (Dulcolax (bisacodyl)) 10 mg (2 x 5 mg) PO BEDTIME 4 tabs 0RF 2 days sucralfate (Carafate) 20 mL PO QNOON 1,000 mL 1RF K22.10 - Ulcer of esophagus without bleeding, K29.60 - Other gastritis without bleeding peg 3350-electrolytes 236-22.74-6.74 -5.86 gram (Golytely) until fecal effluent is clear; do not exceed a total volume of 2,000 mL 240 mL PO Q10M 4,000 mL 0RF 1 day Z12.11 - Encounter for screening for malignant neoplasm of colon Coding Level of Care Code Est Pt Level 4 (47325) Diagnoses Diarrhea R19.7 Dysphagia R13.10 Nausea & vomiting R11.2 Erosive gastritis K29.60 Erosive esophagitis K22.10 Family history of colon cancer in mother Z80.0 Feline esophagus K22.89 Time Spent (min) 36
[2024-12-22 12:59] VITALS: BP 113/54; PULSE 69; BMI 23.8
--- OUTSIDE RECORDS SUMMARY | 2024-12-22 13:45 | XMS_ITS | Encounter Summary ---
Author Organization [facility] Address [address] [place] [address] Care Team Providers Care Personal Coach Name Role Phone Darien Monroe MD Unavailable [phone] Claude Steele MD Primary Care Provider [phone] Salvador Hurt MD Unavailable [phone] Encounter Details Date Type Department Care Team (Late st Contact Info) Description 01/26/2022 Scanned Document [facility] Neurosurgery [address] [phone] Neurosurgery, Scan Social History Tobacco Use Types [...] on filedocumented in this encounter Care Teams Personal Coach Relationship Specialty Start Date End Date Claude Steele MD [address] [place] [address] [place] [address] PCP - General Internal Medicine 10/31/21 Darien Monroe MD [address] [place] [address] Physician Psychiatry, General 10/31/21 Salvador Hurt MD [address] [address] Surgery, Neurosurgery 02/08/22 documented as of this encounter
--- OUTSIDE RECORDS SUMMARY | 2024-12-22 13:45 | XMS_ITS | Patient Health Record ---
Author Organization [facility] Address [address] [place] [phone] Care Team Providers Care Milking Machine Technician Name Role Phone Cedric CRUZ, [place] Primary Care Provider Tuan Mata Jr Allergies [...] Problem Status W/U Status Risk Notes Problem [id number] Rectal bleeding (K62.5) Active confirmed Plan Of Treatment Future Test Test Name Order Date COLONOSCOPY 04/27/2015 Insurance Providers Payer Name Payer Address Payer Phone Subscriber Number Group Number Insured Name Patient Relationship to Insured Coverage Start Date Coverage End Date [facility] [address] [place], [place] [id number] [phone] [id number] DARELL MENENDEZ Self - patient is the insured Medical (General) History Medical History History ICD Code colonoscopy 02-15-2010 colitis Denies [place],DM,CVA,Lung disease,renal dise ase ovarian cysts Surgical History Surgery Date(Month/Year) right shoulder surgery hysterectomy 2011
--- OUTSIDE RECORDS SUMMARY | 2024-12-22 13:45 | XMS_ITS | Clinical Summary ---
Author Organization [employer] Address [address] [facility] 7 [place] [address] Care Team Providers Care Transfer Operator Name Role Phone Unavailable Primary Care Provider [...] NEEDED FOR SLEEP 4 Active HYDROcodone-jacky taminophen ([place]) 7.5-325 MG tablet TAKE ONE TABLET BY [...] Most Recently Relevant to Health Maintenance Insurance [facility] MEDICAID STAND ADULT
--- OUTSIDE RECORDS SUMMARY | 2024-12-22 13:45 | XMS_ITS | Clinical Summary ---
Author Organization [address] [place] [address] Address [address] [place] [address] Phone Care Team Providers Care Toll Transmission Worker Name Role Phone Claude Steele MD Primary [...] Insurance [place] - [place] Care Teams Toll Transmission Worker Relationship Specialty Start Date End Date Claude Steele MD [address] [place] [address] Jose Roberto [address] [place] [address] PCP - General Internal Medicine 12/30/17
--- OUTSIDE RECORDS SUMMARY | 2024-12-22 13:45 | XMS_ITS | Encounter Summary ---
Author Organization [facility] Address [address] [facility] [address] [place] [phone] Phone Care Team Providers Care Gun Stock Maker Name Role Phone Claude Steele MD Primary Care Provider [phone] Encounter Details Date Type Department Care Team (Late st Contact Info) Description 10/27/2021 Procedure Pass [facility], [address] [address] Social History Tobacco Use Types Packs/Day Years [...] on filedocumented in this encounter Care Teams Gun Stock Maker Relationship Specialty Start Date End Date Claude Steele MD [address] [place] [address] [place] [address] PCP - General Internal Medicine 07/20/21 documented as of this encounter Additional Source Comments The information contained in this document represents components of the legal health record. It is not the complete legal health record.[facility]
== END 2024-12-22 15:35 | disposition home or self-care (01) ==
LOC: HO.HGI 12:30
PROVIDERS: PCP Internal Medicine; Visit Provider Nurse Practitioner
DX: R19.7 Diarrhea, unspecified (principal); R13.10 Dysphagia, unspecified; R11.2 Nausea with vomiting, unspecified; K29.60 Other gastritis without bleeding; K22.10 Ulcer of esophagus without bleeding; Z80.0 Family history of malignant neoplasm of digestive organs; K22.89 Other specified disease of esophagus
CPT/HCPCS: 99214

== ENCOUNTER → 2024-12-22 12:29 | Outpatient (BNVA) | payer MEDICARE, MEDICAID, SELFPAY | PROVIDERS: PCP Internal Medicine; Visit Provider Nurse Practitioner | DX: K29.60 Other gastritis without bleeding (principal); K22.10 Ulcer of esophagus without bleeding; K22.89 Other specified disease of esophagus; Z80.0 Family history of malignant neoplasm of digestive organs; R19.7 Diarrhea, unspecified; R13.10 Dysphagia, unspecified; R11.2 Nausea with vomiting, unspecified | CPT/HCPCS: 99212 ==

== ENCOUNTER 2024-12-25 09:20 | Outpatient (REF) | payer MEDICARE, MEDICAID, SELFPAY ==
--- OUTSIDE RECORDS SUMMARY | 2024-12-25 09:27 | XMS_ITS | Encounter Summary ---
Author Organization [facility] Address [address] [place] [address] Care Team Providers Care Toll Lineman Name Role Phone Darien Monroe MD Unavailable [phone] Claude Steele MD Primary Care Provider [phone] Salvador Hurt MD Unavailable [phone] Encounter Details Date Type Department Care Team (Late st Contact Info) Description 01/26/2022 Scanned Document [facility] Neurosurgery [address] [phone] Neurosurgery, Scan Social History Tobacco Use Types [...] on filedocumented in this encounter Care Teams Toll Lineman Relationship Specialty Start Date End Date Claude Steele MD [address] [place] [address] [place] [address] PCP - General Internal Medicine 10/31/21 Darien Monroe MD [address] [place] [address] Physician Psychiatry, General 10/31/21 Salvador Hurt MD [address] [address] Surgery, Neurosurgery 02/08/22 documented as of this encounter
--- OUTSIDE RECORDS SUMMARY | 2024-12-25 09:27 | XMS_ITS | Clinical Summary ---
Author Organization [address] [place] [address] Address [address] [place] [address] Phone Care Team Providers Care Water Regulator And Valve Repairer Name Role Phone Claude Steele MD Primary [...] Insurance [place] - [place] Care Teams Water Regulator And Valve Repairer Relationship Specialty Start Date End Date Claude Steeel MD [address] [place] [address] Jose Roberto [address] [place] [address] PCP - General Internal Medicine 12/30/17
--- OUTSIDE RECORDS SUMMARY | 2024-12-25 09:27 | XMS_ITS | Encounter Summary ---
Author Organization [facility] Address [address] [facility] [address] [place] [address] Phone Care Team Providers Care Bin Packer Name Role Phone Claude Steele MD Primary Care Provider [phone] Encounter Details Date Type Department Care Team (Late st Contact Info) Description 10/27/2021 Procedure Pass [facility], [address] [address] Social History Tobacco Use Types Packs/Day Years [...] on filedocumented in this encounter Care Teams Bin Packer Relationship Specialty Start Date End Date Claude Steele MD [address] [place] [address] [place] [address] PCP - General Internal Medicine 07/20/21 documented as of this encounter Additional Source Comments The information contained in this document represents components of the legal health record. It is not the complete legal health record.[facility]
--- OUTSIDE RECORDS SUMMARY | 2024-12-25 09:27 | XMS_ITS | Patient Health Record ---
Author Organization [facility] Address [address] [place] [address] Care Team Providers Care Quality Assurance Group Leader Name Role Phone Cedric CRUZ, [place] Primary Care Provider Tuan Mata Jr Allergies [...] Problem Status W/U Status Risk Notes Problem [id number] Rectal bleeding (K62.5) Active confirmed Plan Of Treatment Future Test Test Name Order Date COLONOSCOPY 04/27/2015 Insurance Providers Payer Name Payer Address Payer Phone Subscriber Number Group Number Insured Name Patient Relationship to Insured Coverage Start Date Coverage End Date [facility] [address] [place], [place] [id number] [phone] [id number] DARELL MENENDEZ Self - patient is the insured Medical (General) History Medical History History ICD Code colonoscopy 02-15-2010 colitis Denies VT,DM,CVA,Lung disease,renal dise ase ovarian cysts Surgical History Surgery Date(Month/Year) right shoulder surgery hysterectomy 2011
--- OUTSIDE RECORDS SUMMARY | 2024-12-25 09:27 | XMS_ITS | Clinical Summary ---
Author Organization [employer] Address [address] [facility] 7 [place] [address] Care Team Providers Care Terrazzo Tile Maker Name Role Phone Unavailable Primary Care Provider [...] NEEDED FOR SLEEP 4 Active HYDROcodone-jacky taminophen ([place]) 7.5-325 MG tablet TAKE ONE TABLET BY [...] Most Recently Relevant to Health Maintenance Insurance [facility] MEDICAID STAND ADULT
[2024-12-25 09:46] LABS: MANUAL DIFF FLAG NO
[2024-12-25 10:26] LABS: Hematocrit 35.0 % (37.0-47.0); Hemoglobin 11.7 g/dl (12.0-16.0); Imm Gran Abs Auto 0.01 X10*3/uL (0.00-0.03); Imm Gran Pct Auto 0.2 % (0.0-0.4); Lymphocytes Absolute Auto 1.7 X10*3/uL (1.2-4.9); Mean Corpuscular HGB Conc 33.4 g/dl (31.0-35.0); Mean Corpuscular Hemoglobin 31.0 pg (27.0-33.0); Mean Corpuscular Volume 92.8 fL (80.0-98.0); NRBC Abs Auto 0.000 X10*3/uL (0.0-0.012); NRBC Pct Auto 0.0 /100WBC (0.0-0.2); Platelet Count 284 X10*3/uL (160-400); Red Blood Count 3.77 X10*6/uL (4.20-5.50); White Blood Count 5.2 X10*3/uL (4.8-10.8)
[2024-12-25 11:08] LABS: Alanine Aminotransferase 25 U/L (0-31); Albumin Level 4.9 g/dL (3.5-5.0); Alkaline Phosphatase 44 U/L (39-117); Anion Gap 13 (12-20); Aspartate Amino Transferase 23 U/L (5-31); Blood Urea Nitrogen 24 mg/dL (9-16); Calcium 9.1 mg/dL (8.4-10.2); Carbon Dioxide 27 mmol/L (22-29); Chloride 108 mmol/L (96-108); Cholesterol 157 mg/dL (<200); Estimated Glomerular Filt Rate > 60; HDL Cholesterol 52 mg/dL (>40); Potassium 4.6 mmol/L (3.3-5.1); Sodium 143 mmol/L (135-145); Total Protein 6.9 g/dL (6.5-8.0); Triglycerides 136 mg/dL (<150)
== END 2024-12-25 09:21 | disposition home or self-care (01) ==
LOC: HO.LAB 09:20
PROVIDERS: PCP Internal Medicine; Visit Provider Internal Medicine
DX: Z01.84 Encounter for antibody response examination (principal); D64.9 Anemia, unspecified; E78.00 Pure hypercholesterolemia, unspecified; R79.89 Other specified abnormal findings of blood chemistry
CPT/HCPCS: 36415; 80053; 80061; 84443; 85025; 86376

== ENCOUNTER → 2025-01-27 08:08 | Outpatient (REF) | payer MEDICARE, MEDICAID, SELFPAY ==
--- NOTE | ~2025-01-27 | NM_ITS ---
EXAMINATION: VT RADIONUCLIDE SOLID FOOD GASTRIC EMPTYING 4-HOUR STUDY CLINICAL INFORMATION: Pertinent history of weight loss, dysphagia COMPARISON: None TECHNIQUE: A standard meal consisting of 4 oz of Egg Beaters brand tagged with 0.86 microcuries Tc-99m Sulfur Colloid, 8 oz water and 1 slices of toast with jelly was administered orally to the patient. Images were obtained using a dual head gamma camera in the anterior and posterior projections over of the stomach immediately post ingestion and at hourly intervals up to 4 hours post ingestion. The anterior and posterior counts at each time interval were averaged using the geometric mean and expressed as percentage of the immediate post ingestion counts. FINDINGS: There is good visualization of activity in the stomach immediately post ingestion. As the study progresses, there is good clearance of activity from the stomach and visualization of progressively increasing small bowel activity. By the end of the study, there is almost no retention noted in the stomach. Retention in the stomach at each time interval was: 1 hour 56% (normal 37%-90%) 2 hours 7% (normal 30%-60%) 3 hours 9% VT/VT gastric emptying study IMPRESSION: Normal solid food gastric emptying study. For solid meal, rapid gastric emptying is less than 30% at 60 minutes. Delayed gastric emptying criteria is more than 60% remaining at 120 minutes or more than 10% at 240 minutes. The 4-hour value is the best discriminator of a normal or abnormal result). Gastric emptying study grading per JNMT Consensus Recommendations in 2008 (https://tech.snmjournals.org/content/36/1/44) Grade 1 (mild retention): 11-20% at 4h Grade 2 (moderate retention): 21-35% at 4h Grade 3 (severe retention): 36-50% at 4h Grade 4 (very severe retention): >50% retention at 4h Electronically signed by: Ervin jOeda MD 01/27/2025 01:15 PM EDT
--- OUTSIDE RECORDS SUMMARY | 2025-01-27 08:39 | XMS_ITS | Clinical Summary ---
Author Organization [employer] Address [address] [facility] 7 [place] [address] Care Team Providers Care Contract Technical Writer Name Role Phone Unavailable Primary Care Provider [...] NEEDED FOR SLEEP 4 Active HYDROcodone-jacky taminophen ([place]) 7.5-325 MG tablet TAKE ONE TABLET BY [...] 8:34 AM EDT Sexual Orientation Straight 12/23/2023 8 :34 AM EDT Last Filed Vital Signs Vital [...] 2018 Zoster Vaccines (1 of 2) 2018 Dental X-Ray: Bitewings 12/23/2024 12/23/2023 COVID-19 Vaccine (3 - 2024-2 6 season) 2025 09/18/2020, 08/21/2020 Influenza Vaccine (#1) 2025 03/08/2005 Tobacco Screening [...] Most Recently Relevant to Health Maintenance Insurance [facility] MEDICAID STAND ADULT
--- OUTSIDE RECORDS SUMMARY | 2025-01-27 08:39 | XMS_ITS | Clinical Summary ---
Author Organization [facility] Address [address] [address] Phone Care Team Providers Care Manager Engagement Name Role Phone Claude Steele MD Primary Care Provider [phone] Allergies Active Allergy Reactions Criticality Noted Date Comments Amoxicillin Rash Low 08/01/2021 Sulfa (Sulfonamide Antibiotics) Rash Low 07/05 Medications LORazepam (ATIVAN) 1 MG tablet Take 1 mg by mouth daily. 05/19/2021 Active cyclobenzaprine (FLEXERIL) 10 MG tablet Take 10 mg by mouth daily. 07/16/2021 Active HYDROcodone-jacky taminophen (NORCO) 7.5-325 mg per tablet Take 7.5-3,325 tablets by mouth daily. 07/12/2021 Active SUMAtriptan (IMITREX) 100 MG tablet Take 100 mg by mouth as needed. 07/26/2021 Active Active Problems Problem Noted Date Diagnosed Date Disorder of sacrum 09/13/2021 Immunizations Immunization Administration Dates Next Due COVID-19 (Pre-02/25) Moderna Vaccine, mRNA, PF 0 09/18/2020,08/21/2020 Social History Tobacco Use Types Packs/Day Years Used Date Smoking Tobacco: Former Smokeless Tobacco: Current Education Answer Date Recorded Are you interested in more education? Not on dara e 09/01/2022 Are you concerned about learning? Not on file 09/01/2022 No 09/01/2022 No 09/01/2022 Digital Access Answer Date Recorded No 09/30/2022 No 09/30/2022 No 09/30/2022 Reliable internet access at home? Not on file 09/30/2022 Device with a working camera? Not on file Comments Unknown Sex and Gender Information Value Date Recorded Sex Assigned at Female 07/20/2021 1:02 PM EDT Legal Sex Female 12:58 PM EDT Gender Identity Female 07/20/2021 1:02 PM EDT Sexual Orientation Straight 07/20/2021 1: 02 PM EDT Last Filed Vital Signs Vital Sign Reading Time Taken Comments Blood Pressure 121/70 08/01/2021 12:38 PM EDT Pulse 103 08/01/2021 12:38 PM EDT Temperature 36.8 C (98.3 F) 08/01/2021 12:38 PM EDT Respiratory Rate - - Oxygen Saturation - - Inhaled Oxygen Concentration - - Weight 59 kg (130 lb) 11/14/2021 11:31 AM EDT Height 167.6 cm (5' 6 ) 11/14/2021 11:31 AM EDT Body Mass Index 20.98 11/14/2021 11:31 AM EDT Plan of Treatment Health Maintenance Due Date Last Done Comments Adult Td,Tdap Booster 1968 LIPID PANEL 1968 DEPRESSION SCREENING 1980 SMOKING Hx and SMOKELESS TOBACCO SCREENING 1981 HEPATITIS C SCREENING 1986 HIV ONE-TIME SCREENING (18-6 5 YEARS) 1986 MAMMOGRAM 2008 COLOGUARD 2013 COLONOSCOPY 2013 COLORECTAL CANCER SCREENING 2013 FIT TEST 2013 FOBT 2013 SIGMOIDOSCOPY 2013 VIRTUAL COLONOSCOPY 2013 PNEUMOCOCCAL VACCINES (50+ years) (1 of 1 - PCV) 2018 ZOSTER VACCINES (1 of 2) 2018 INFLUENZA VACCINE (#1) 2024 COVID-19 VACCINE (3 - 2024-2 6 season) 2025 09/18/2020, 08/21/2020 HEPATITIS A VACCINES Aged Out No long er eligible based on patient's age to complete this topic HIB VACCINES Aged Out No longer eligi ble based on patient's age to complete this topic MENINGOCOCCAL VACCINES (ACWY) Aged Out No longer eligible based on patient's age to complete this topic MENINGOCOCCAL VACCINES (B) Aged Out N o longer eligible based on patient's age to complete this topic Medical Devices Not on file Insurance [facility]] [facility]NOTE 2[facility] 2] [facility] 2] [facility] [place] 2] Care Teams Manager Engagement Relationship Specialty Start Date End Date Cedric, Claude Sy, MD [address] [place] [address] [place] [address] PCP - General Internal Medicine 07/20/21 Additional Source Comments The information contained in this document represents components of the legal health record. It is not the complete legal health record.[facility]
--- OUTSIDE RECORDS SUMMARY | 2025-01-27 08:39 | XMS_ITS | Encounter Summary ---
Author Organization [facility] Address [address] [facility] [address] [place] [address] Phone Care Team Providers Care Community Service Worker Name Role Phone Claude Steele MD Primary Care Provider [phone] Encounter Details Date Type Department Care Team (Late st Contact Info) Description 10/27/2021 Procedure [facility], [address] [address] Social History Tobacco Use Types Packs/Day Years [...] on filedocumented in this encounter Care Teams Community Service Worker Relationship Specialty Start Date End Date Claude Steele MD [address] [place] [address] [place] [address] PCP - General Internal Medicine 07/20/21 documented as of this encounter Additional Source Comments The information contained in this document represents components of the legal health record. It is not the complete legal health record.[facility]
--- OUTSIDE RECORDS SUMMARY | 2025-01-27 08:39 | XMS_ITS | Encounter Summary ---
Author Organization [facility] Address [address] [place] [address] Care Team Providers Care Family Services Worker Name Role Phone Darien Monroe MD Unavailable [phone] Claude Steele MD Primary Care Provider [phone] aSlvador Hurt MD Unavailable [phone] Encounter Details Date Type Department Care Team (Late st Contact Info) Description 04/10/2022 Scanned Document [facility] Neurosurgery [address] [phone] Neurosurgery, Scan Social History Tobacco Use Types [...] more drinks on one occasion? Never 02/28/2022 Comments Unknown Sex and Gender Information Value Date Recorded Sex Assigned at Not on file Legal Sex Female 6:52 PM EST Gender Identity Not on file Sexual Orientation Not on file COVID-19 Exposure Response Date Recorded In the last 10 days, have rachna u been in contact with someone who was confirmed or suspected to have Coronavirus/COVID-19? No / Unsure 03/19/2022 1:51 PM EST documented as of this encounter Plan of Treatment Not on file documented as of this encounter Visit Diagnoses Not on filedocumented in this encounter Care Teams Family Services Worker Relationship Specialty Start Date End Date Claude Steele MD [address] [place] [address] Dr Samuel [address] [place] [address] PCP - General Internal Medicine 10/31/21 Darien Monroe MD [address] [place] [address] Physician Psychiatry, General 10/31/21 Salvador Hurt MD [address] [address] Surgery, Neurosurgery 02/08/22 documented as of this encounter
--- OUTSIDE RECORDS SUMMARY | 2025-01-27 08:39 | XMS_ITS | Patient Health Record ---
Author Organization [facility] Address [address] [place] [address] Care Team Providers Care Drawer In Jacquard Loom Name Role Phone Cedric CRUZ, [place] Primary Care Provider Tuan Mata Jr Allergies [...] Problem Status W/U Status Risk Notes Problem [id number] Rectal bleeding (K62.5) Active confirmed Plan Of Treatment Future Test Test Name Order Date COLONOSCOPY 04/27/2015 Insurance Providers Payer Name Payer Address Payer Phone Subscriber Number Group Number Insured Name Patient Relationship to Insured Coverage Start Date Coverage End Date [facility] [address] [place], [place] [id number] DARELL MENENDEZ Self - patient is the insured Medical (General) History Medical History History ICD Code colonoscopy 02-15-2010 colitis Denies ID,DM,CVA,Lung disease,renal dise ase ovarian cysts Surgical History Surgery Date(Month/Year) right shoulder surgery hysterectomy 2011
--- OUTSIDE RECORDS SUMMARY | 2025-01-27 08:39 | XMS_ITS | Encounter Summary ---
Author Organization [facility] Address [address] [place] [address] Care Team Providers Care Mobility Engineer Name Role Phone Darien Monroe MD Unavailable [phone] Claude Steele MD Primary Care Provider [phone] Salvador Hurt MD Unavailable [phone] Encounter Details Date Type Department Care Team (Late st Contact Info) Description 01/26/2022 Scanned Document [facility] Neurosurgery [address] [phone] Neurosurgery, Scan Social History Tobacco Use Types [...] on filedocumented in this encounter Care Teams Mobility Engineer Relationship Specialty Start Date End Date Claude Steele MD [address] [place] [address] [place] [address] PCP - General Internal Medicine 10/31/21 Darien Monroe MD [address] [place] [address] Physician Psychiatry, General 10/31/21 Salvador Hurt MD [address] [address] Surgery, Neurosurgery 02/08/22 documented as of this encounter
--- OUTSIDE RECORDS SUMMARY | 2025-01-27 08:39 | XMS_ITS | Clinical Summary ---
Author Organization [address] [place] [address] Address [address] [place] [address] Phone Care Team Providers Care Marketing Support Coordinator Name Role Phone Claude Steele MD Primary [...] 04/03/2022 Social Influencers of Health Screening 04/03/2022 Depression Screening 05/06/2024 COVID-19 Vaccine (3 - 2024-2 6 season) 2025 09/18/2020, 08/21/2020 Influenza Vaccine (#1) 2025 03/08/2005 HIB Vaccines [...] Insurance MEDICA[place] - [place]ICARE Care Teams Marketing Support Coordinator Relationship Specialty Start Date End Date Claude Steele MD [address] [place] [address] Jose Roberto [address] [place] [address] PCP - General Internal Medicine 12/30/17
--- OUTSIDE RECORDS SUMMARY | 2025-01-27 08:39 | XMS_ITS | Encounter Summary ---
Author Organization [facility] Address [address] [place] [address] Care Team Providers Care Newsagent Name Role Phone Darien Monroe MD Unavailable [phone] Claude Steele MD Primary Care Provider [phone] Salvador Hurt MD Unavailable [phone] Encounter Details Date Type Department Care Team (Late st Contact Info) Description 03/26/2022 [facility] Neurosurgery [address] [phone] Salvador Hurt MD [address] [place] [address] SI (sacroiliac) joint dysfunction Social History [...] classified documented in this encounter Care Teams Newsagent Relationship Specialty Start Date End Date Claude Steele MD [address] [place] [address] [address] PCP - General Internal Medicine 10/31/21 Darien Monroe MD [address] [place] [address] Physician Psychiatry, General 10/31/21 Salvador Hurt MD [address] [place] [address] Surgery, Neurosurgery 02/08/22 documented as of this encounter
--- OUTSIDE RECORDS SUMMARY | 2025-01-27 08:39 | XMS_ITS | Encounter Summary ---
Author Organization [facility] Address [address] [place] [address] Care Team Providers Care Hotel Maid Name Role Phone Darien Monroe MD Unavailable [phone] Claude Steele MD Primary Care Provider [phone] Salvador Hurt MD Unavailable [phone] Encounter Details Date Type Department Care Team (Late st Contact Info) Description 10/23/2022 Scanned Document [facility] Neurosurgery [address] [phone] Lilia Sampson RN Social History Tobacco Use Types Packs/Day Years [...] on filedocumented in this encounter Care Teams Hotel Maid Relationship Specialty Start Date End Date Claude Steele MD [address] [place] [address] Dr Samuel [address] [place] [address] PCP - General Internal Medicine 10/31/21 Darien Monroe MD [address] [place] [address] Physician Psychiatry, General 10/31/21 Salvador Hurt MD [address] [place] [address] Surgery, Neurosurgery 02/08/22 documented as of this encounter
--- OUTSIDE RECORDS SUMMARY | 2025-01-27 08:40 | XMS_ITS | Encounter Summary ---
Author Organization [facility] Address [address] [place] [address] Care Team Providers Care Delivery Route Driver Name Role Phone Darien Monroe MD Unavailable [phone] Claude Steele MD Primary Care Provider [phone] Salvador Hurt MD Unavailable [phone] Reason for Visit * Reason Comments Medication Problem Pharmacy needed auth Encounter Details Date Type Department Care Team (Late st Contact Info) Description 03/01/2022 Telephone [facility] Neurosurgery [address] [phone] Jluis Bianchi, PAArnold [address] [place] [address] Medication Problem (Pharmacy needed auth) Social History [...] Please confirm that her pharmacy is [facility]. We cannot prescribe to Willy in [facility]. documented in this encounter Plan of Treatment Not on file documented as of this encounter Visit Diagnoses Not on filedocumented in this encounter Care Teams Delivery Route Driver Relationship Specialty Start Date End Date Claude Steele MD [address] [place] [address] [place] [address] PCP - General Internal Medicine 10/31/21 Darien Monroe MD [address] [place] [address] Physician Psychiatry, General 10/31/21 Salvador Hurt MD [address] [place] [address] Surgery, Neurosurgery 02/08/22 documented as of this encounter
--- OUTSIDE RECORDS SUMMARY | 2025-01-27 08:40 | XMS_ITS | Clinical Summary ---
Author Organization [facility] Address [address] [place] [address] Care Team Providers Care Grinding Machine Operator Name Role Phone Darien Monroe MD Unavailable [phone] Claude Steele MD Primary Care Provider [phone] Salvador Hurt MD Unavailable [phone] Allergies Active Allergy Reactions Criticality Noted Date Comments Amoxicillin Rash/Dermatitis,Othe r (See Comments) Low 04/27/2015 Latex 02/27/2022 Added based on information entered during case entry, please review and add reactions, type, and severity as needed Sulfa Antibiotics Rash/Dermatitis Low 04/27/2015 Medications citalopram (CeleXA) 20 MG tablet 1 tablet (20 mg total) nightly. 2 Active cyclobenzaprine (FLEXERIL) 10 MG tablet Take 1 tablet (10 mg total) by mouth 3 times daily (every 8 hours) as needed. 2 Active LORazepam (ATIVAN) 1 MG tablet Take 1 tablet (1 mg total) by mouth 4 times daily (every 6 hours) as needed. 2 Active SUMAtriptan (IMITREX) 100 MG tablet TAKE 1 TABLET BY MOUTH DIRECTED NEEDED FOR 30 DAYS. MAY REPEAT 1 MORE TIME IF NEEDED 2 Active senna (SENOKOT) 8.6 MG Tab tablet Take 2 tablets by mouth nightly. Active acetaminophen (TYLENOL) 325 MG tabletIndication s:SI (sacroiliac) joint dysfunction Take 2 tablets (650 mg total) by mouth 4 (four) times a day as needed for mild pain. 240 tablet 2 Active HYDROcodone-acet aminophen (NORCO) 7.5-325 mg tablet Take 1 tablet by mouth 4 (four) times a day as needed. for pain 2 Active oxyCODONE (ROXICODONE) 5 MG immediate release tabletIndication s:SI (sacroiliac) joint dysfunction Take 1 tablet (5 mg total) by mouth 4 times daily (every 6 hours) as needed for severe pain or moderate pain. Max Daily Amount: 20 mg 21 tablet 2 Active Active Problems Problem Noted Date [...] 79 05/28/2022 1:43 PM EST Temperature 36.7 C (98 F) 05/28/2022 1:43 PM EST Respiratory Rate 16 [...] Vaccine (1 of 2) 2018 Influenza Vaccine 12/04/2024 COVID-19 Vaccine (3 - season) 2025, 08/21/2020 Medical Devices Implanted Type Area Senior Policy Associate Device Identifier Shelf Expiration Date Model / Serial / Lot [id number]-90 System Spinal Fixation 50mm 7mm Ifuse-3d Implant 3ang - Sn/A Implanted:Qty: 1 on 02/28/2022 by Salvador Hurt MD at [facility] Spine Left: Sacrum [employer] 03/14/2026 7050M-90 / N/A / [id number] System Spinal Fixation 45mm 7mm Ifuse Implant Sys 3ang - Sn/A Implanted:Qty: 1 on 02/28/2022 by Salvador Hurt MD at [facility] Spine Left: Sacrum [employer] 02/10/2026 [id number]-90 / N/A / [id number] System Spinal Fixation 45mm 7mm Ifuse Implant Sys 3ang - Sn/A Implanted:Qty: 1 on 02/28/2022 by Salvador Hurt MD at [facility] Spine Left: Sacrum [employer] 02/20/2026 [id number]-90 / N/A / [id number] Insurance [employer] [facility] [id number] [employer] [facility] Advance Directives * Full Code (Latest Code Status on File) Date Activated Date Inactivated Comments 02/28/2022 12:38 PM * Full Code Date Activated Date Inactivated Comments 02/28/2022 7:53 AM 02/28/2022 12:38 PM Care Teams Grinding Machine Operator Relationship Specialty Start Date End Date Claude Steele MD [address] [place] [address] [place] [address] PCP - General Internal Medicine 10/31/21 Darien Monroe MD [address] [place] [address] Physician Psychiatry, General 10/31/21 Salvador Hurt MD [address] [place] [address] Surgery, Neurosurgery 02/08/22
--- OUTSIDE RECORDS SUMMARY | 2025-01-27 08:41 | XMS_ITS | Encounter Summary ---
Author Organization [facility] Address [address] [place] [address] Care Team Providers Care Acrobatic Rigger Name Role Phone Darien Monroe MD Unavailable [phone] Claude Steele MD Primary Care Provider [phone] Salvador Hurt MD Unavailable [phone] Encounter Details Date Type Department Care Team (Late st Contact Info) Description 02/22/2022 Scanned Document [facility] Neurosurgery [address] [phone] [address] Social History Tobacco Use Types [...] on filedocumented in this encounter Care Teams Acrobatic Rigger Relationship Specialty Start Date End Date Claude Steele MD [address] [place] [address] PCP - General Internal Medicine 10/31/21 Darien Monroe MD [address] [place] [address] Physician Psychiatry, General 10/31/21 Salvador Hurt MD [address] [place] [address] Surgery, Neurosurgery 02/08/22 documented as of this encounter
--- OUTSIDE RECORDS SUMMARY | 2025-01-27 08:41 | XMS_ITS | Encounter Summary ---
Author Organization [facility] Address [address] [place] [address] Care Team Providers Care Train System Operator Name Role Phone Darien Monroe MD Unavailable [phone] Claude Steele MD Primary Care Provider [phone] Salvador Hurt MD Unavailable Encounter Details Date Type Department Care Team (Late st Contact Info) Description 02/07/2022 Scanned Document [facility] Neurosurgery [address] [phone] Social History Tobacco Use Types Packs/Day Years [...] on filedocumented in this encounter Care Teams Train System Operator Relationship Specialty Start Date End Date Claude Steele MD [address] [place] [address] [place] [address] PCP - General Internal Medicine 10/31/21 Darien Monroe MD [address] [place] [address] Physician Psychiatry, General 10/31/21 Salvador Hurt MD [address] [address] Surgery, Neurosurgery 02/08/22 documented as of this encounter
--- OUTSIDE RECORDS SUMMARY | 2025-01-27 08:41 | XMS_ITS | Encounter Summary ---
Author Organization [facility] Address [address] [place] [address] Care Team Providers Care Vp Name Role Phone Darien Monroe MD Unavailable [phone] Claude Steele MD Primary Care Provider [phone] Salvador Hurt MD Unavailable [phone] Encounter Details Date Type Department Care Team (Late st Contact Info) Description 02/22/2022 Scanned Document [facility] Neurosurgery [address] [phone] Salvador Hurt MD [address] [place] [address] Social History Tobacco Use Types Packs/Day [...] on filedocumented in this encounter Care Teams Vp Relationship Specialty Start Date End Date Claude Steele MD [address] [place] [address] [place] [address] PCP - General Internal Medicine 10/31/21 Darien Monroe MD [address] [place] [address] Physician Psychiatry, General 10/31/21 Salvador Hurt MD [address] [place] [address] [address] [place] [address] Surgery, Neurosurgery 02/08/22 documented as of this encounter
== END ==
LOC: HO.NUCMED 08:08
PROVIDERS: PCP Internal Medicine; Visit Provider Nurse Practitioner
DX: R11.2 Nausea with vomiting, unspecified (principal); R13.10 Dysphagia, unspecified; R63.4 Abnormal weight loss
CPT/HCPCS: 78264; A9541

== ENCOUNTER → 2025-01-27 08:43 | Outpatient (BNV) | payer MEDICARE, MEDICAID, SELFPAY | PROVIDERS: PCP Internal Medicine; Visit Provider Radiology Diagnostic Radiology | DX: R13.10 Dysphagia, unspecified (principal); R63.4 Abnormal weight loss | CPT/HCPCS: 78264 ==

== ENCOUNTER 2025-02-05 10:05 | Outpatient (AMB) | payer MEDICARE, MEDICAID, SELFPAY ==
--- NOTE | 2025-02-05 10:10 | MHC.OFFVIS ---
Vital Signs 02/05/25 10:11 Height 5 ft 6 in Weight 148 lb 12.992 oz BMI 24.0 BP 116/60 Blood Pressure Location Rt brachial Position Sitting Pulse 72 Intake Visit Reasons: 6wks Intake Note: Dulce presents in the office as a follow up vomiting. CC: Patient c/o blood in stool, abd bloating, LLQ abd pain vomiting for the last 3 days, and constipation. Patient states that she could not take the sucralfate and Famotidine d/t side effects. Manager Of Warehouse Required: No Allergies amoxicillin (Amoxicillin) Allergy (Severe, Verified 02/05/25 10:22) RASH Sulfa (Sulfonamide Antibiotics) Allergy (Severe, Verified 02/05/25 10:22) RASH pravastatin Allergy (Unknown, Verified 02/05/25 10:22) myalgia pregabalin Allergy (Unknown, Verified 02/05/25 10:22) Muscle cramps alirocumab (From Praluent Pen) Adverse Reaction (Intermediate, Verified 02/05/25 10:22) increased joint pains, patricia in hands and knees mirtazapine Adverse Reaction (Intermediate, Verified 02/05/25 10:22) weight gain and increased headaches and brain fog atorvastatin Adverse Reaction (Unknown, Verified 02/05/25 10:22) leg pain and swelling ezetimibe (Zetia) Adverse Reaction (Unknown, Verified 02/05/25 10:22) joint pain famotidine Adverse Reaction (Unknown, Verified 02/05/25 10:22) Headache oxycodone (Percocet) Adverse Reaction (Unknown, Verified 02/05/25 10:22) nausea, upset stomach, increased headaches rosuvastatin Adverse Reaction (Unknown, Verified 02/05/25 10:22) myalgia sucralfate Adverse Reaction (Unknown, Verified 02/05/25 10:22) Nausea and Vomiting HPI HPI 6wks: Details: Assessment & Plan (1) Diarrhea: Code(s): R19.7 - Diarrhea, unspecified Category: Medical (2) Dysphagia: Code(s): R13.10 - Dysphagia, unspecified Category: Medical (3) Nausea & vomiting: Code(s): R11.2 - Nausea with vomiting, unspecified Category: Medical (4) Erosive gastritis: Code(s): K29.60 - Other gastritis without bleeding Category: Medical (5) Erosive esophagitis: Code(s): K22.10 - Ulcer of esophagus without bleeding Category: Medical (6) Family history of colon cancer in mother: Code(s): Z80.0 - Family history of malignant neoplasm of digestive organs Category: Medical (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 - The patient has a history of chronic GERD with endoscopic findings of erosive esophagitis and gastritis. Symptoms include felinization of the esophagus, small gastric ulcers, and significant postprandial pain and bloating. She did not tolerate the pantoprazole related to nausea so she went back on omeprazole 40 mg in his tolerating this better. Since I last saw her she is having much less nausea and vomiting but still has quite a bit of pain with eating ?when the food hits my stomach. ? - There was a previous clinical suspicion of eosinophilic esophagitis, though this was not confirmed by biopsy. She underwent an esophageal dilation procedure which provided limited relief for swallowing difficulties. - The patient's constipation persists despite various treatments, requiring intermittent use of laxatives like Magnesium Citrate and Katey. - The family history is significant for colon cancer, in her maternal grandmother and 2 maternal uncles with her mother having colon polyps; the family members suffered cancer in their 50s. -She reports persistent fatigue and weight gain, accompanied by joint pain, for which further thyroid function testing is planned via her primary care provider. In the past it was thought that she was fatigued because she was losing weight and getting insufficient nutrition but this is now turning around. - There are concerns about possible gallbladder dysfunction, but relevant diagnostic studies were not yet completed. Patient was informed and verbally consented to the use of an ambient scribe for clinic note documentation during this visit. Discussion Notes During the visit, I explained the potential diagnoses related to her gastrointestinal symptoms, including the confirmed presence of erosive esophagitis, gastritis, and gastric ulcers. We discussed medication strategies, emphasizing the importance of consistent acid suppression with Omeprazole and the temporary use of Carafate and Famotidine. She was also educated that the Carafate needs to be isolated once a day well away from her other chronic medications so that it does not prevent absorption. If she becomes constipated she will utilize senna and if this is insufficient she will call the office for additional help. I stressed the need for rescheduling an ultrasound and gastric emptying study to assess for possible gastroparesis contributing to her esophageal damage via fermentation (also because of her history of nausea and vomiting) an ultrasound to make sure there is not gallbladder pathology as a contributing factor. She has a family history of gallbladder disease in her mother. n. Patient Instructions - Take Omeprazole 40 mg each morning as directed. I am also adding famotidine at bedtime. - Take Carafate midday, separate from other medications. - Use [place] as needed for constipation relief. - Await scheduling details for ultrasound and gastric emptying study. - Attend the ordered colonoscopy once scheduled. - Follow instructions provided by Dr. Steele for thyroid testing. - Return for follow-up in six weeks or sooner if symptoms worsen. - Contact the office if experiencing severe side effects or new symptoms. Return office visit in 6 weeks. Orders: Orders Colonoscopy - GI Use Only Today Z80.0 - Family history of malignant neoplasm of digestive organs Medications: New famotidine (Pepcid) 40 mg PO BEDTIME 30 tabs 6RF bisacodyl (Dulcolax (bisacodyl)) 10 mg (2 x 5 mg) PO BEDTIME 4 tabs 0RF 2 days sucralfate (Carafate) 20 mL PO QNOON 1,000 mL 1RF K22.10 - Ulcer of esophagus without bleeding, K29.60 - Other gastritis without bleeding peg 3350-electrolytes 236-22.74-6.74 -5.86 gram (Golytely) until fecal effluent is clear; do not exceed a total volume of 2,000 mL 240 mL PO Q10M 4,000 mL 0RF 1 day Z12.11 - Encounter for screening for malignant neoplasm of colon COLONOSCOPY BIOPSY GES 01/27/2025 IMPRESSION: Normal solid food gastric emptying study. US ABD 02/14/2025 TODAYS VISIT [facility] Medical History (Updated 02/05/25 @ 10:33 by STEVE Lazcano) Gastritis Encounter for well woman exam with routine gynecological exam Family history of myocardial infarction Arthritis of carpometacarpal (CMC) joint of left thumb Osteoarthritis of spine with radiculopathy, lumbar region Sprain of ulnar collateral ligament Acute bilateral thoracic back pain Overweight (BMI 25.0-29.9) Depression Anxiety Allergic rhinitis Reflex sympathetic dystrophy of left upper extremity Cervical spondylosis Primary osteoarthritis of right shoulder Pure hypercholesterolemia Migraine Surgical History History of esophagogastroduodenoscopy History of cervical discectomy S/P JOLENE-BSO (total abdominal hysterectomy and bilateral salpingo-oophorectomy) History of carpal tunnel release History of removal of cyst History of colonoscopy History of repair of rotator cuff Family History Father Prostate cancer Mother Lung cancer Hypertension CVD (cardiovascular disease) Diabetes Chronic mental illness Maternal Grandmother Colon cancer Sister History of breast cancer, Onset Age: 64 Stroke Other Mental health problem Social History Housing: House Are you a primary health care coordinator to a significant other at home: No Do you presently have visiting nurse or other home services: No Alcohol intake: never Patient Tobacco Use Status: Former Tobacco user e-Cigarette/Vaping Use: Never Used Second Hand Smoke Exposure: Yes service: No Current occupational status: employed 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 Cognitive needs: No Hearing needs: No Vision needs: Yes Review of Systems Const Denies fatigue, Denies fever(s), Denies night sweats, Reports poor appetite and Reports weight loss ENT Reports Normal hearing present, Denies dental pain, Denies dysphagia, Denies hearing loss, Denies mouth pain, Reports odynophagia, Denies throat swelling, Denies tongue swelling and Reports other (Dentition adequate) Card Reports no additional complaints Resp Reports no additional complaints GI Details: Denies abdominal pain, Denies melena, Reports bloating, Reports hematochezia, Reports constipation, Denies GI cramping, Denies dysphagia, Denies excessive flatus, Denies early satiety, Reports heartburn, Denies diarrhea, Reports nausea, Reports odynophagia, Reports vomiting and Denies hematemesis Musc Reports arthralgias and Reports radiating pain into limb Skin/Breast Denies pruritus, Denies lesions, Denies rash and Denies jaundice Neuro Reports Normal hearing present and Denies Abnormal speech present Endo Denies fatigue Aller/Immun Denies throat swelling and Denies tongue swelling Physical Exam Vital Signs: Last Vital Signs Pulse 72 02/05/25 10:11 BP 116/60 02/05/25 10:11 BMI result Body Mass Index 24.0 Const General: cooperative, no acute distress, well developed and well groomed Nutritional Appearance: average body habitus and well nourished Orientation/consciousness: oriented to person, oriented to place and oriented to time Limitations: No language barrier HEENT Head: Yes normocephalic and Yes atraumatic Eyes General: appearance normal, both eyes and all related structures Pupils: Equal, round and reactive pupils present Neck Neck: Yes normal visual inspection and Yes no lymphadenopathy Thyroid: Thyroid normal Resp Effort & Inspection: normal respiratory effort and able to speak in complete sentences Auscultation: clear to auscultation bilaterally Cardio Rate: regular rate Rhythm: regular rhythm Heart sounds: Normal, physiologic split S2 sound present Peripheral pulses: radial pulses present and posterior tibial pulses present GI Inspection: No distended and No Abdominal panniculus present Palpation (GI): Soft to palpation, nontender, no guarding, not rigid and No hepatosplenomegaly present Percussion: Yes normal to percussion Auscultation: normal bowel sounds Rectal Exam - Female: deferred Skin General skin exam: no rashes or lesions noted, turgor normal, skin not dry, no jaundice, No spider nevi and no striae Rashes: no rashes Nails: normal Neuro General: oriented to person, oriented to place and oriented to time Cranial nerves: Yes Equal, round and reactive pupils present and Yes Normal hearing present Speech: No Abnormal speech present Extrem General: Yes normal to inspection, No clubbing, No cyanosis and No edema Psych Appearance: grossly normal and well kempt Mental Status: mental status grossly normal Speech and movement: Normal speech and movement present Affect: normal affect Attitude: cooperative Thought process: Normal thought process present and not confabulating Thought content: Normal thought content present Insight: Fair insight present (Psych) and Limited insight present (Psych) Judgement: Fair judgement present (Psych) and Limited judgement present (Psych) Assessment & Plan Assessment & Plan (1) Erosive esophagitis: Code(s): K22.10 - Ulcer of esophagus without bleeding Category: Medical (2) Erosive gastritis: Code(s): K29.60 - Other gastritis without bleeding Category: Medical (3) Dysphagia: Code(s): R13.10 - Dysphagia, unspecified Category: Medical (4) Nausea & vomiting: Code(s): R11.2 - Nausea with vomiting, unspecified Category: Medical (5) Constipation: Code(s): K59.00 - Constipation, unspecified Category: Medical Plan She is here today with a female family member who is supportive - The patient is a 54-year-old female presenting with symptoms of erosive esophagitis, nausea, and vomiting. The gastric emptying study is normal so this is not helping us advanced the treatment plan. - Unfortunately she could not tolerate the Carafate and famotidine, Carafate caused more nausea and famotidine caused her headaches. This is unfortunate since her recent EGD showed gastric erosions and esophagitis. She has also had a barium swallow showing felinazation of the esophagus - Currently on Omeprazole she is tolerating this and because of the esophageal irritation I would like to see if we can get this twice a day to address the esophagitis and the erosions. - Since I last saw her she has had a very severe bout of nausea and vomiting much more intractable that has been for her in the past. Unfortunately, this was not helped with Zofran. - Persistent constipation despite the use of Senna, with bright red blood on defecation suspected to be due to hemorrhoids. - Experiences left-sided abdominal pain related to constipation. Given her severe stomach upset and vomiting I would like to keep the constipation agent mild, she does not tolerate MiraLax well so I suggest we try milk of magnesia. To treat the nausea and vomiting we will try Reglan 5 mg 3 times a day since she had no success with Zofran. UNFORTUNATELY THE DIFFERENTIAL diagnosis remains wide. We are getting an ultrasound to see if gallstones or gallbladder problems are something to be considered. I explained to them today that nausea is a symptom that can come for many sources and it could be metabolic, neurologic or even psychogenic. Sometimes it is not [place] to the GI system. However we will continue to explore this to try to get to the root cause, although certainly a gastric erosions could be a big part of it. She has had considerable weight loss per her report and I did do a thyroid study which is normal. Return office visit after the ultrasound COLONOSCOPY BIOPSY ULTRASOUND OF THE ABDOMEN 02/18/2025 Medications: New metoclopramide HCl (Reglan) 5 mg PO TID 90 tabs 1RF R11.2 - Nausea with vomiting, unspecified magnesium hydroxide (Milk of Magnesia) 10 mL PO BEDTIME 3,780 mL 6RF K59.00 - Constipation, unspecified Changed From omeprazole 40 mg PO DAILY 90 days 90 caps 0RF To omeprazole 40 mg PO BID 180 caps 0RF 90 days Discontinued famotidine (Pepcid) Discontinued Reason: Doctor's Order 40 mg PO BEDTIME 30 tabs 6RF sucralfate (Carafate) Discontinued Reason: Doctor's Order 20 mL PO QNOON 1,000 mL 1RF K22.10 - Ulcer of esophagus without bleeding, K29.60 - Other gastritis without bleeding Coding Level of Care Code Est Pt Level 4 (02446) Diagnoses Erosive esophagitis K22.10 Erosive gastritis K29.60 Dysphagia R13.10 Nausea & vomiting R11.2 Constipation K59.00 Time Spent (min) 37
[2025-02-05 10:11] VITALS: BP 116/60; PULSE 72; BMI 24.0
--- OUTSIDE RECORDS SUMMARY | 2025-02-05 10:54 | XMS_ITS | Patient Health Record ---
Author Organization [facility] Address [address] [place] [id number] Care Team Providers Care Bmx Rider Name Role Phone Cedric CRUZ, [place] Primary Care Provider Tuan Mata Jr Allergies [...] Problem Status W/U Status Risk Notes Problem [id number] Rectal bleeding (K62.5) Active confirmed Plan Of Treatment Future Test Test Name Order Date COLONOSCOPY 04/27/2015 Insurance Providers Payer Name Payer Address Payer Phone Subscriber Number Group Number Insured Name Patient Relationship to Insured Coverage Start Date Coverage End Date [facility] [address] [place], [place] [id number] DARELL MENENDEZ Self - patient is the insured Medical (General) History Medical History History ICD Code colonoscopy 02-15-2010 colitis Denies LA,DM,CVA,Lung disease,renal dise ase ovarian cysts Surgical History Surgery Date(Month/Year) right shoulder surgery hysterectomy 2011
--- OUTSIDE RECORDS SUMMARY | 2025-02-05 10:54 | XMS_ITS | Clinical Summary ---
Author Organization [address] [place] [address] Address [address] [place] [address] Phone Care Team Providers Care [facility] Name Role Phone Claude Steele MD Primary [...] of shoulder region, not elsewhere classified Immunizations Immunization Administration Dates Next Due Influenza trivalent, with [...] Last Done Comments Breast Cancer Screening 1968 Colorectal Cancer Screening: Colonoscopy 1968 DTaP,Tdap,and Td Vaccines (1 - Tdap) 1987 Hepatitis B Vaccines (1 of 3 - 19+ 3-dose series) 1987 Cervical Cancer Screening: P ap Smear 09/08/2011 09/07/2008, 09/07/2008 Pneumococcal Vaccine: 50+ Years (1 of 1 - PCV) 2018 Zoster Vaccines (1 of 2) 2018 Cholesterol Screening (Lipid Panel) 04/03/2022 HIV Screening 04/03/2022 Hepatitis C Screening 04/03/2022 Lung Cancer Screening (Low Dose CT) 04/03/2022 Medicare Annual Wellness Visit 04/03/2022 Social Influencers of Health Screening 04/03/2022 Depression Screening 05/06/2024 COVID-19 Vaccine (3 - 2024-2 6 season) 2025 09/18/2020, 08/21/2020 Influenza Vaccine (#1) 2025 03/08/2005 RSV Immunization Adult Patients (1 - 1-dose 75+ series) 2043 HIB [...] HPV no interpreta tion,abstr acted Historical Provider MD HEALTH MAINTENANCE Final Result from Last 3 Months or Most Recently Relevant to Health Maintenance Insurance MEDICAID - [place] MEDICARE Care Teams [facility] Relationship Specialty Start Date End Date Claude Steele MD [address] [place] [address] Jose Roberto [address] [place] [address] PCP - General Internal Medicine 12/30/17
--- OUTSIDE RECORDS SUMMARY | 2025-02-05 10:54 | XMS_ITS | Clinical Summary ---
Author Organization [facility] Address [address] [address] Phone Care Team Providers Care Dog Raiser Name Role Phone Claude Steele MD Primary Care Provider [phone] Allergies Active Allergy Reactions Criticality Noted Date [...] topic Medical Devices Not on file Insurance [employer] [facility] [employer] [facility] [employer] [facility] [facility] [employer] [facility] [facility] [employer] [facility] Care Teams Dog Raiser Relationship Specialty Start Date End Date Cedric, Claude Sy, MD [address] [place] [address] [place] [address] PCP - General Internal Medicine 07/20/21 Additional Source Comments The information contained in this document represents components of the legal health record. It is not the complete legal health record.[facility]
--- OUTSIDE RECORDS SUMMARY | 2025-02-05 10:54 | XMS_ITS | Encounter Summary ---
Author Organization [facility] Address [address] [place] [address] Care Team Providers Care Contract Processor Name Role Phone Darien Monroe MD Unavailable [phone] Claude Steele MD Primary Care Provider [phone] Salvador Hurt MD Unavailable [phone] Encounter Details Date Type Department Care Team (Late st Contact Info) Description 04/10/[address] [facility] Neurosurgery [address] [phone] Neurosurgery, Scan Social History Tobacco Use Types [...] on filedocumented in this encounter Care Teams Contract Processor Relationship Specialty Start Date End Date Claude Steele MD [address] [place] [address] Dr Samuel [address] [place] [id number] PCP - General Internal Medicine 10/31/21 Darien Monroe MD [address] [place] [address] Physician Psychiatry, General 10/31/21 Salvador Hurt MD [address] [address] Surgery, Neurosurgery 02/08/22 documented as of this encounter
--- OUTSIDE RECORDS SUMMARY | 2025-02-05 10:54 | XMS_ITS | Encounter Summary ---
Author Organization [facility] Address [address] [facility] [address] [place] [phone] Phone Care Team Providers Care Wood Casket Assembler Name Role Phone Claude Steele MD Primary Care Provider [phone] Encounter Details Date Type Department Care Team (Late st Contact Info) Description 10/27/2021 Procedure Pass [facility], [address] [address] Social History Tobacco Use Types Packs/Day Years [...] on filedocumented in this encounter Care Teams Wood Casket Assembler Relationship Specialty Start Date End Date Claude Steele MD [address] [place] [address] [place] [address] PCP - General Internal Medicine 07/20/21 documented as of this encounter Additional Source Comments The information contained in this document represents components of the legal health record. It is not the complete legal health record.[facility]
--- OUTSIDE RECORDS SUMMARY | 2025-02-05 10:54 | XMS_ITS | Encounter Summary ---
Author Organization [facility] Address [address] [place] [address] Care Team Providers Care [place] Mold Maker Name Role Phone Darien Monroe MD Unavailable [phone] Claude Steele MD Primary Care Provider [phone] Salvador Hurt MD Unavailable [phone] Encounter Details Date Type Department Care Team (Late st Contact Info) Description 10/23/2022 Scanned Document [facility] Neurosurgery [address] [phone] Lilia Sampson RN Social History Tobacco Use [...] on filedocumented in this encounter Care Teams [place] Mold Maker Relationship Specialty Start Date End Date Claude Steele MD [address] [place] [address] Dr [address] [place] [address] PCP - General Internal Medicine 10/31/21 Darien Monroe MD [address] [place] [address] Physician Psychiatry, General 10/31/21 Salvador Hurt MD [address] [place] [address] Surgery, Neurosurgery 02/08/22 documented as of this encounter
--- OUTSIDE RECORDS SUMMARY | 2025-02-05 10:54 | XMS_ITS | Encounter Summary ---
Author Organization [facility] Address [address] [place] [address] Care Team Providers Care Assistant Sales Manager Name Role Phone Darien Monroe MD Unavailable [phone] Claude Steele MD Primary Care Provider [phone] Salvador Hurt MD Unavailable [phone] Encounter Details Date Type Department Care Team (Late st Contact Info) Description 01/26/2022 Scanned Document [facility] Neurosurgery [address] [phone] Neurosurgery, Scan Social History Tobacco Use Types [...] on filedocumented in this encounter Care Teams Assistant Sales Manager Relationship Specialty Start Date End Date Claude Steele MD [address] [place] [address] [place] [address] PCP - General Internal Medicine 10/31/21 Darien Monroe MD [address] [place] [address] Physician Psychiatry, General 10/31/21 Salvador Hurt MD [address] [address] Surgery, Neurosurgery 02/08/22 documented as of this encounter
--- OUTSIDE RECORDS SUMMARY | 2025-02-05 10:55 | XMS_ITS | Clinical Summary ---
Author Organization [employer] Address [address] [facility] 7 [place] [address] Care Team Providers Care Pumper Helper Name Role Phone Unavailable Primary Care Provider [...] NEEDED FOR SLEEP 4 Active HYDROcodone-jacky taminophen ([place]) 7.5-325 MG tablet TAKE ONE TABLET BY [...] Most Recently Relevant to Health Maintenance Insurance [facility] MEDICAID STAND ADULT
--- OUTSIDE RECORDS SUMMARY | 2025-02-05 10:55 | XMS_ITS | Encounter Summary ---
Author Organization [facility] Address [address] [place] [address] Care Team Providers Care Facility Engineer Name Role Phone Darien Monroe MD Unavailable [phone] Claude Steele MD Primary Care Provider [phone] Salvador Hurt MD Unavailable [phone] Encounter Details Date Type Department Care Team (Late st Contact Info) Description 02/07/[address] [facility] Neurosurgery [address] [phone] Social History Tobacco Use Types Packs/Day Years [...] on filedocumented in this encounter Care Teams Facility Engineer Relationship Specialty Start Date End Date Claude Steele MD [address] [place] [address] [place] [address] PCP - General Internal Medicine 10/31/21 Darien Monroe MD [address] [place] [address] Physician Psychiatry, General 10/31/21 Salvador Hurt MD [address] [address] Surgery, Neurosurgery 02/08/22 documented as of this encounter
--- OUTSIDE RECORDS SUMMARY | 2025-02-05 10:55 | XMS_ITS | Encounter Summary ---
Author Organization [facility] Address [address] [place] [address] Care Team Providers Care Firmware Developer Name Role Phone Darien Monroe MD Unavailable [phone] Claude Steele MD Primary Care Provider [phone] Salvador Hurt MD Unavailable [phone] Encounter Details Date Type Department Care Team (Late st Contact Info) Description 02/22/2022 Scanned Document [facility] Neurosurgery [address] [phone] Salvador Hurt MD [address] [place] [address] Social History Tobacco Use Types Packs/Day [...] on filedocumented in this encounter Care Teams Firmware Developer Relationship Specialty Start Date End Date Claude Steele MD [address] [place] [address] [place] [address] PCP - General Internal Medicine 10/31/21 Darien Monroe MD [address] [place] [address] Physician Psychiatry, General 10/31/21 Salvador Hurt MD [address] [place] [address] [address] [place] [address] Surgery, Neurosurgery 02/08/22 documented as of this encounter
--- OUTSIDE RECORDS SUMMARY | 2025-02-05 10:55 | XMS_ITS | Clinical Summary ---
Author Organization [facility] Address [address] [place] [address] Care Team Providers Care Frame Carver Spindle Name Role Phone Darien Monroe MD Unavailable [phone] Claude Steele MD Primary Care Provider [phone] Salvador Hurt MD Unavailable [phone] Allergies Active Allergy Reactions Criticality Noted Date [...] 2025, 08/21/2020 Medical Devices Implanted Type Area Accountant Auditor Device Identifier Shelf Expiration Date Model / Serial / Lot [id number]-90 System Spinal Fixation 50mm 7mm Ifuse-3d Implant 3ang - Sn/A Implanted:Qty: 1 on 02/28/2022 by Salvador Hurt MD at [facility] Spine Left: Sacrum [employer] 03/14/2026 7050M-90 / N/A / [id number] System Spinal Fixation 45mm 7mm Ifuse Implant Sys 3ang - Sn/A Implanted:Qty: 1 on 02/28/2022 by Salvador Hurt MD at [facility] Spine Left: Sacrum [employer] 02/10/2026 7045M-90 / N/A / [id number] System Spinal Fixation 45mm 7mm Ifuse Implant Sys 3ang - Sn/A Implanted:Qty: 1 on 02/28/2022 by Slavador Hurt MD at [facility] Spine Left: Sacrum [employer] 02/20/2026 7045M-90 / N/A / [id number] Insurance [employer] [facility] [id number] [employer] [facility] Advance Directives * Full Code (Latest Code Status on File) Date Activated Date Inactivated Comments 02/28/2022 12:38 PM * Full Code Date Activated Date Inactivated Comments 02/28/2022 7:53 AM 02/28/2022 12:38 PM Care Teams Frame Carver Spindle Relationship Specialty Start Date End Date Claude Steele MD [address] [place] [address] [place] [address] PCP - General Internal Medicine 10/31/21 Darien Monroe MD [address] [place] [address] Physician Psychiatry, General 10/31/21 Salvador Hurt MD [address] [place] [address] Surgery, Neurosurgery 02/08/22
--- OUTSIDE RECORDS SUMMARY | 2025-02-05 10:55 | XMS_ITS | Encounter Summary ---
Author Organization [facility] Address [address] [place] [address] Care Team Providers Care Gun Club Manager Name Role Phone Darien Monroe MD Unavailable [phone] Claude Steele MD Primary Care Provider [phone] Salvador Hurt MD Unavailable [phone] Reason for Visit * Reason Comments Medication Problem Pharmacy needed auth Encounter Details Date Type Department Care Team (Late st Contact Info) Description 03/01/2022 Telephone [facility] Neurosurgery [address] [phone] Jluis Bianchi, PAArnold [address] [place] [address] Medication Problem (Pharmacy needed auth) Social History [...] EDT Please confirm that her pharmacy is [facility]. We cannot prescribe to Willy in [facility]. documented in this encounter Plan of Treatment Not on file documented as of this encounter Visit Diagnoses Not on filedocumented in this encounter Care Teams Gun Club Manager Relationship Specialty Start Date End Date Claude Steele MD [address] [place] [address] [place] [address] PCP - General Internal Medicine 10/31/21 Darien Monroe MD [address] [place] [address] Physician Psychiatry, General 10/31/21 Salvador Hurt MD [address] [place] [address] Surgery, Neurosurgery 02/08/22 documented as of this encounter
--- OUTSIDE RECORDS SUMMARY | 2025-02-05 10:55 | XMS_ITS | Encounter Summary ---
Author Organization [facility] Address [address] [place] [address] Care Team Providers Care Feller Buncher Operator Name Role Phone Darien Monroe MD Unavailable [phone] Claude Steele MD Primary Care Provider [phone] Salvador Hurt MD Unavailable [phone] Encounter Details Date Type Department Care Team (Late st Contact Info) Description 03/26/2022 [facility] Neurosurgery [address] [phone] Salvador Hurt MD [address] [place] [address] SI (sacroiliac) joint dysfunction Social History [...] classified documented in this encounter Care Teams Feller Buncher Operator Relationship Specialty Start Date End Date Claude Steele MD [address] [place] [address] [address] PCP - General Internal Medicine 10/31/21 Darien Monroe MD [address] [place] [address] Physician Psychiatry, General 10/31/21 Salvador Hurt MD [address] [place] [address] Surgery, Neurosurgery 02/08/22 documented as of this encounter
--- OUTSIDE RECORDS SUMMARY | 2025-02-05 10:55 | XMS_ITS | Encounter Summary ---
Author Organization [facility] Address [address] [place] [address] Care Team Providers Care Supervisor Microwave Name Role Phone Darien Monroe MD Unavailable Claude Steele MD Primary Care Provider [phone] Salvador Hurt MD Unavailable Encounter Details Date Type Department Care Team (Late st Contact Info) Description 02/22/2022 Scanned Document [facility] Neurosurgery [address] [phone] [address] Social History Tobacco Use Types [...] on filedocumented in this encounter Care Teams Supervisor Microwave Relationship Specialty Start Date End Date Claude Steele MD [address] [place] [address] PCP - General Internal Medicine 10/31/21 Darien Monroe MD [address] [place] [address] Physician Psychiatry, General 10/31/21 Salvador Hurt MD [address] [place] [address] Surgery, Neurosurgery 02/08/22 documented as of this encounter
== END 2025-02-05 10:39 | disposition home or self-care (01) ==
LOC: HO.HGI 10:06
PROVIDERS: PCP Internal Medicine; Visit Provider Nurse Practitioner
DX: K22.10 Ulcer of esophagus without bleeding (principal); K29.60 Other gastritis without bleeding; R13.10 Dysphagia, unspecified; R11.2 Nausea with vomiting, unspecified; K59.00 Constipation, unspecified
CPT/HCPCS: 99214

== ENCOUNTER → 2025-02-05 10:05 | Outpatient (BNVA) | payer MEDICARE, MEDICAID, SELFPAY | PROVIDERS: PCP Internal Medicine; Visit Provider Nurse Practitioner | DX: K22.10 Ulcer of esophagus without bleeding (principal); K29.60 Other gastritis without bleeding; K59.00 Constipation, unspecified; R13.10 Dysphagia, unspecified; R11.2 Nausea with vomiting, unspecified | CPT/HCPCS: 99212 ==

== ENCOUNTER 2025-04-22 09:47 | Outpatient (REF) | payer MEDICARE, MEDICAID, SELFPAY ==
--- NOTE | ~2025-04-22 | US_ITS ---
CLINICAL HISTORY: DYSPHAGIA US limited to right upper quadrant Comparison: None Findings: Liver is normal size and reveals mild increased echogenicity, suggesting mild steatosis. No focal hepatic lesions. No intrahepatic ductal dilatation. Right lobe length measures 14.7 cm. Portal vein reveals hepatopetal flow. Common bile duct measures 5 mm. Gallbladder appears unremarkable. No sonographic Dumas's sign. Right kidney is normal texture. No hydronephrosis. Right renal length is 9.9 cm. Impression: 1. Findings suggesting mild hepatic steatosis. 2. Otherwise, unremarkable right upper quadrant ultrasound. This document has been electronically signed by: Vince Castro MD on 04/22/2025 14:38:51
[2025-04-22 15:23] LABS: Alanine Aminotransferase 40 U/L (0-31); Albumin Level 4.9 g/dL (3.5-5.0); Alkaline Phosphatase 56 U/L (39-117); Anion Gap 14 (12-20); Aspartate Amino Transferase 39 U/L (5-31); Blood Urea Nitrogen 24 mg/dL (9-16); Calcium 9.2 mg/dL (8.4-10.2); Carbon Dioxide 24 mmol/L (22-29); Chloride 108 mmol/L (96-108); Cholesterol 174 mg/dL (<200); Estimated Glomerular Filt Rate > 60; HDL Cholesterol 57 mg/dL (>40); Potassium 5.3 mmol/L (3.3-5.1); Sodium 141 mmol/L (135-145); Total Protein 7.2 g/dL (6.5-8.0); Triglycerides 103 mg/dL (<150)
== END 2025-04-22 09:48 | disposition home or self-care (01) ==
LOC: HO.HMGCX 09:47
PROVIDERS: Absent Provider Internal Medicine; PCP Internal Medicine; Visit Provider Nurse Practitioner
DX: R13.10 Dysphagia, unspecified (principal); E78.00 Pure hypercholesterolemia, unspecified
CPT/HCPCS: 36415; 76705; 80053; 80061

== ENCOUNTER 2025-04-27 10:34 | Outpatient (AMB) | payer MEDICARE, MEDICAID, SELFPAY ==
[2025-04-27 10:48] VITALS: BP 124/68; PULSE 78; O2SAT 95; BMI 24.4
--- NOTE | 2025-04-27 10:48 | A.OFFPC_ITS ---
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 Required: No Accompanied by: Self / Same As Patient Allergies amoxicillin (Amoxicillin) Allergy (Severe, Verified 04/27/25 11:45) RASH Sulfa (Sulfonamide Antibiotics) Allergy (Severe, Verified 04/27/25 11:45) RASH pravastatin Allergy (Unknown, Verified 04/27/25 11:45) myalgia pregabalin Allergy (Unknown, Verified 04/27/25 11:45) Muscle cramps alirocumab (From Praluent Pen) Adverse Reaction (Intermediate, Verified 04/27/25 11:45) increased joint pains, patricia in hands and knees mirtazapine Adverse Reaction (Intermediate, Verified 04/27/25 11:45) weight gain and increased headaches and brain fog atorvastatin Adverse Reaction (Unknown, Verified 04/27/25 11:45) leg pain and swelling ezetimibe (Zetia) Adverse Reaction (Unknown, Verified 04/27/25 11:45) joint pain famotidine Adverse Reaction (Unknown, Verified 04/27/25 11:45) Headache oxycodone (Percocet) Adverse Reaction (Unknown, Verified 04/27/25 11:45) nausea, upset stomach, increased headaches rosuvastatin Adverse Reaction (Unknown, Verified 04/27/25 11:45) myalgia sucralfate Adverse Reaction (Unknown, Verified 04/27/25 11:45) Nausea and Vomiting Medication List - Last Reconciled 04/27/25 by Claude Steele MD bisacodyl (Dulcolax (bisacodyl)) 10 mg (2 x 5 mg) PO BEDTIME 2 days citalopram 40 mg PO DAILY 90 days evolocumab (Repatha SureRajiv) 140 mg subcut Q2W fluticasone propionate 50 mcg/actuation 2 sprays intranasal DAILY PRN 30 days hydrocodone-acetaminophen 7.5-325 mg 1 tab PO .4x a day PRN 28 days lorazepam 1 mg PO QID PRN 30 days magnesium hydroxide (Milk of Magnesia) 10 mL PO BEDTIME metoclopramide HCl (Reglan) 5 mg PO TID omeprazole 40 mg PO BID 90 days peg 3350-electrolytes 236-22.74-6.74 -5.86 gram (Golytely) 240 mL PO Q10M 1 day sennosides (Senna Laxative) 34.4 mg PO BEDTIME sumatriptan succinate 100 mg PO as directed as needed. may repeat one more time if needed; 30 days zolpidem 10 mg PO BEDTIME PRN NS Tobacco use date assessed: 04/27/25 Dental Screening Dental Screen Date: 04/27/25 Did you have a dental visit in the last 12 months?: Yes Did you have a dental problem in the last 6 months where you did not have access to dental care?: No Was dental information given to patient?: Patient has dentist HPI 4mth f/u HPI Details - The patient is a 55-year-old female wh o presents for a follow-up visit for management of gastrointestinal issues and arthritis. - She has a history of ulcers in the eso phagus and stomach, confirmed by an upper endoscopy in December, and reports ongoing stomach problems and intermittent dysphagia. - A gastric emptying study in January was normal, and a recent ultrasound revealed mild fatty liver but was otherwise unremarkable for the gallbladder, spine, and right kidney. - She reports severe, generalized arthri tis, with significant pain in her knuckles that worsens with cold and humid weather. - This pain significantly disrupts her s leep, leading to severe daytime fatigue. - The patient has a history of intoleran ce to multiple medications, including pantoprazole due to nausea, famotidine due to headaches, and Carafate due to nausea and vomiting. - She was also unable to tolerate pregab elba (Lyrica), mirtazapine, and gabapentin. - She currently takes omeprazole for her stomach issues and takes Repatha injections for her high cholesterol. - She denies any headaches or dizziness - Denies any chest pains, no increased S OB - No nausea/vomiting lately and no hernandez e in bowel habits noted - Her cholesterol is well-controlled, al though recent labs showed a slight increase on her recent labs done a few days ago - She has also had a recent weight gain of 3-4 pounds. [facility] Medical History Gastritis Encounter for well woman exam with routine gynecological exam Family history of myocardial infarction Arthritis of carpometacarpal (CMC) joint of left thumb Osteoarthritis of spine with radiculopathy, lumbar region Sprain of ulnar collateral ligament Acute bilateral thoracic back pain Overweight (BMI 25.0-29.9) Depression Anxiety Allergic rhinitis Reflex sympathetic dystrophy of left upper extremity Cervical spondylosis Primary osteoarthritis of right shoulder Pure hypercholesterolemia Migraine Surgical History History of esophagogastroduodenoscopy History of cervical discectomy S/P JOLENE-BSO (total abdominal hysterectomy and bilateral salpingo-oophorectomy) History of carpal tunnel release History of removal of cyst History of colonoscopy History of repair of rotator cuff Family History Father Prostate cancer Mother Lung cancer Hypertension CVD (cardiovascular disease) Diabetes Chronic mental illness Maternal Grandmother Colon cancer Sister History of breast cancer, Onset Age: 64 Stroke Other Mental health problem Social History Housing: House Are you a primary acute care assistant to a significant other at home: No Do you presently have visiting nurse or other home services: No Alcohol intake: never Patient Tobacco Use Status: Former Tobacco user e-Cigarette/Vaping Use: Never Used Second Hand Smoke Exposure: Yes service: No Current occupational status: employed 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 1. Little interest or pleasure in doing things: several days 2. Feeling down, depressed, or hopeless: several days 3. Trouble falling or staying asleep, or sleeping too much: several days 4. Feeling tired or having little energy: several days 5. Poor appetite or overeating: several days 6. Feeling bad about yourself - or that you are a failure or have let yourself or your family down: several days 7. Trouble concentrating on things, such as reading the newspaper or watching television: several days 8. Moving or speaking so slowly that other people could have noticed. Or the opposite - being so fidgety or restless that you have been moving around a lot more than usual: several days 9. Thoughts that you would be better off or of hurting yourself in some way: not at all Total score: 8 Depression Screening Interpretation: Positive Depression Screening Follow-up: Existing condition and In treatment Depression Screening Done: Yes 06877 - PHQ-9 Billing: Yes Source: Developed by Drs. Eulogio Obregon, Marianela Smith, Alec Zapata and colleagues, with an educational sunshine from [employer]. Thrive Questionnaire Date Thrive assessed: 04/27/25 I am a: Patient What is your living situation today?: I have a steady place to live Within the past 12 months, did the food you bought not last and you didn't have the money to get more?: Never true Within the past 12 months, did you worry whether your food would run out before you got money to buy more?: Never true Do you have trouble paying for medicines?: No Do you have trouble getting transportation to medical appointments?: No Do you have trouble paying your heating and electricity bill?: I choose not to answer this question Do you have trouble taking care of your child, family member or friend?: No Do you have trouble with day-to-day activities such as bathing, preparing meals, shopping, managing finances, etc.?: No Are you currently unemployed and looking for a job?: I choose not to answer this question Are you interested in more education?: No Please select the resources that you would like help with: None Currently or been in a relationship where the following occur: No concerns repor amaris THRIVE Score: 0 AUDIT C Alcohol Use Questionnaire (AUDIT-C) 1. How often do you have a drink containing alcohol?: Never 3. How often do you have six or more drinks on one occasion?: Never Total Score: 0 Score Reviewed/Action Taken: Yes WALE-7 AMB Questionnaire WALE-7 Date WALE - 7 assessed: 04/27/25 Feeling nervous, anxious, or on edge: 1 = Several days Not being able to stop or control worryin = Several days Worrying too much about different things: 1 = Several days Trouble relaxin = Several days Being so restless that it is hard to sit still: 1 = Several days Becoming easily annoyed or irritable: 1 = Several days Feeling afraid as if something awful might happen: 1 = Several days Total WALE-7 score (0-4 normal; 5-9 mild; 10-14 moderate; 15-21 severe): 7 Source: Developed by Drs. Eulogio Obregon, Marianela Smith, Alec Zapata and colleagues, with an educational sunshine from [employer]. Review of Systems Const Denies chills, Reports difficulty sleeping, Reports fatigue, Denies fever(s) and Denies headache(s) ENT Reports dysphagia (feels like she is being choked at times), Denies dizziness, Denies otalgia, Denies headache(s), Reports neck pain (chronic), Denies odynophagia and Denies sore throat Card Denies chest pain, Denies rapid heart rate, Denies irregular heart rhythm, Denies palpitations and Denies dyspnea Resp Denies chest congestion, Denies cough and Denies dyspnea GI Reports abdominal pain (on and off sharp pains usually when she eats something - see HPI), Reports constipation (chronic - mainly due to her pain meds), Reports dysphagia (feels like she is being choked at times), Denies heartburn, Denies diarrhea, Denies nausea, Denies odynophagia and Denies vomiting Denies hematuria, Denies difficulty voiding, Denies nocturia, Denies dysuria, Denies urinary incontinence and Denies urinary urgency Musc Reports back pain (over the lower back - chronic), Reports arthralgias (over the left shoulder and left wrist), Reports neck pain (chronic) and Reports radiating pain into limb (left arm) Skin/Breast Denies rash Neuro Denies dizziness, Denies headache(s) and Denies paresthesias Endo Reports fatigue and Denies palpitations Jose/Lymph Denies easy bruising Physical exam (Primary Care) Vital Signs: Last Vital Signs Pulse 78 04/27/25 10:48 BP 124/68 04/27/25 10:48 Pulse Ox 95 04/27/25 10:48 Oxygen Delivery Method Room Air 04/27/25 10:48 BMI result Body Mass Index 24.4 Tobacco/Smoking Status: Tobacco use Status Tobacco use date assessed 04/27/25 04/27/25 11:19 Patient Tobacco Use Status Former Tobacco user 04/27/25 10:48 e-Cigarette/Vaping Use Never Used 04/27/25 10:48 PHQ-9: PHQ-9 Score PHQ-9: Total score 8 04/28/25 05:49 Depression Screening Interpretation: Positive Depression Screening Follow-up: Existing condition and In treatment Thrive Assessment: Date of Thrive Assessment Date Thrive assessed 04/27/25 04/27/25 11:19 Currently or been in a relationship where the following occur: No concerns reported Const General: no acute distress and alert HENMT Ears: TM's normal bilaterally and EAC's normal Throat: Yes posterior oropharynx normal and Yes tonsils normal (no TP congestion) Neck Neck: No lymphadenopathy and Yes tender Thyroid: Thyroid normal Resp Auscultation: clear to auscultation bilaterally, no rales and no wheezes Cardio Rate: regular rate Rhythm: regular rhythm Heart sounds: no murmurs GI Palpation (GI): Soft to palpation and nontender Auscultation: normal bowel sounds General: Yes no CVA tenderness Back/Spine/Pelvis Back: no CVA tenderness Cervical Spine: Cervical spine tenderness Thoracic/Lumbar Spine: paraspinal muscle tenderness bilaterally in the lower thoracic and lumbar spinal tenderness Sacroiliac joints: on the left tender to palpation Skin Rashes: no rashes Extrem General: Yes no clubbing, cyanosis or edema Left upper extremity: wrist ((+) tenderness) Results Reviewed Results Reviewed: Laboratory Tests 04/22/25 09:53 Sodium 141 Potassium 5.3 H Creatinine 0.88 Estimated GFR > 60 Fasting Glucose 90 Calcium 9.2 AST 39 H ALT 40 H Triglycerides 103 Cholesterol 174 LDL Cholesterol, Calc 97 HDL Cholesterol 57 Coding Level of Care Code Est Pt Level 4 (44108) Diagnoses Pure hypercholesterolemia E78.00 Migraine without status migrainosus, not intractable, unspecified migraine type G43.909 Intractability: not intractable Migraine type: unspecified Status migrainosus presence: without status migrainosus Gastritis without bleeding, unspecified chronicity, unspecified gastritis type K29.70 Chronicity: unspecified Gastritis bleeding: without bleeding Gastritis type: unspecified gastritis Reflex sympathetic dystrophy of left upper extremity G90.512 Cervical spondylosis M47.812 Osteoarthritis of spine with radiculopathy, lumbar region M47.26 Arthritis of carpometacarpal (CMC) joint of left thumb M18.12 Chronic fatigue R53.82 Fatigue type: chronic, unspecified Allergic rhinitis, unspecified seasonality, unspecified trigger J30.9 Allergic rhinitis seasonality: unspecified Allergic rhinitis trigger: unspecified Anxiety F41.9 Episode of recurrent major depressive disorder, unspecified depression episode severity F33.9 Active/Remission status: currently active Depression Type: major depressive disorder Major depression episode severity: unspecified Major depression recurrence: recurrent Additional Codes PHQ-9 - 56489 - PHQ-9 Billing: Yes ([id number]) Assessment & Plan Assessment & Plan (1) Pure hypercholesterolemia: Code(s): E78.00 - Pure hypercholesterolemia, unspecified Category: Medical Plan: Results of her labs done a few days ago reviewed and discussed with patient - she is cautioned that her cholesterol levels have increased slightly from previous although they are still within recommended range Reinforced low-cholesterol diet Continue Repatha injections 140 mg SQ every 2 weeks Will have patient recheck her labs and fasting lipids in 4 months for follow-up (2) Migraine: Code(s): G43.909 - Migraine, unspecified, not intractable, without status migrainosus Category: Medical Qualifiers: Intractability: not intractable Migraine type: unspecified Status migrainosus presence: without status migrainosus Qualified Code(s): G43.909 - Migraine, unspecified, not intractable, without status migrainosus Plan: Reinforced avoidance of all potential migraine triggers Continue Sumatriptan 50 mg PRN (3) Gastritis: Code(s): K29.70 - Gastritis, unspecified, without bleeding Category: Medical Qualifiers: Chronicity: unspecified Gastritis bleeding: without bleeding Gastritis type: unspecified gastritis Qualified Code(s): K29.70 - Gastritis, unspecified, without bleeding Plan: Dietary restrictions reinforced Continue Omeprazole 40 mg QD - she was on Pantoprazole previously but had S/E from the Rx Patient [place] Big[place] [facility] [place] - EGD revealed (+) finding of abnormal esophageal mucosa (eosinophilic esophagitis was suspected), gastritis and duodenitis Biopsies done all came out negative for intestinal metaplasia or dysplasia; gastric Bx was negative for H. pylori although the duodenal biopsy did mention ( +) detached fragment of fibrino-inflammatory exudate suggesting erosion/ulcer (4) Reflex sympathetic dystrophy of left upper extremity: Code(s): G90.512 - Complex regional pain syndrome I of left upper limb Category: Medical Plan: Patient states that her chronic arm pain remains adequately controlled on her current Rx (5) Cervical spondylosis: Comment: S/P C5-C6 ACDF a couple of years ago - neck still feels sore frequently but left arm weakness has improved with surgery Code(s): M47.812 - Spondylosis without myelopathy or radiculopathy, cervical region Category: Medical Plan: Continue Cyclobenzaprine 10 mg 3 times a day as needed (6) Osteoarthritis of spine with radiculopathy, lumbar region: Code(s): M47.26 - Other spondylosis with radiculopathy, lumbar region Category: Medical Plan: Reinforced activity and weight-lifting restrictions She could not tolerate physical therapy in the past; cortisone injections in the past at [facility] have helped temporarily She has also received epidural injections from [facility] for a few months a couple of years ago, with variable results She was seen by Dr. Darien Monroe at [facility] in the past and also had a couple of SI joint injections that she states helped only temporarily She was then referred to Dr. Salvador Hurt in [place] and underwent MIS fixation of left sacroiliac joint for stabilization on 02/28/22, followed by physical therapy Pateint states that the surgery helped her somewhat but we have not received any further updates on her condition via correspondence or OV notes from her doctors in [place] since her surgery Reports that her pain has gradually gotten worse again a few months after her surgery and have progressed/gotten worse since Continue Hydrocodone-Acetaminophen 7.5-325 mg 1 tablet 4 times a day as needed for increased pain (7) Arthritis of carpometacarpal (CMC) joint of left thumb: Code(s): M18.12 - Unilateral primary osteoarthritis of first carpometacarpal joint, left hand Category: Medical Plan: MRI of the left wrist done a couple of years ago revealed (+) severe OA changes in the wrist Follow up with orthopedics as scheduled (8) Fatigue: Code(s): R53.83 - Other fatigue Category: Medical Qualifiers: Fatigue type: chronic, unspecified Qualified Code(s): R53.82 - Chronic fatigue, unspecified Plan: Have again advised her that her increasing fatigue is most likely related to her poor sleep quality and difficulty sleeping through the night (chronic insomnia) and this should be addressed properly for her to feel better (9) Allergic rhinitis: Code(s): J30.9 - Allergic rhinitis, unspecified Category: Medical Qualifiers: Allergic rhinitis seasonality: unspecified Allergic rhinitis trigger: unspecified Qualified Code(s): J30.9 - Allergic rhinitis, unspecified Plan: Continue Fluticasone 50 mcg nasal spray QD PRN (10) Anxiety: Code(s): F41.9 - Anxiety disorder, unspecified Category: Medical Plan: Continue Lorazepam 1 mg 4 times a day as needed - Rx refilled We tried starting patient additionally on Doxepin 25 mg Q HS previously but patient states that this did not help at all (11) Depression: Code(s): F32.9 - Major depressive disorder, single episode, unspecified Category: Medical Qualifiers: Active/Remission status: currently active Depression Type: major depressive disorder Major depression episode severity: unspecified Major depression recurrence: recurrent Qualified Code(s): F33.9 - Major depressive disorder, recurrent, unspecified Plan: Continue Citalopram 40 mg QD Follow-up with Psychiatry as scheduled Plan Follow up in 4 months Orders: Orders Comprehensive [place]. Panel Fast 4 Months E78.00 - Pure hypercholesterolemia, unspecified Lipid Panel 4 Months E78.00 - Pure hypercholesterolemia, unspecified Complete Blood Count Auto Diff 4 Months D64.9 - Anemia, unspecified TSH reflex Free T4 4 Months E78.00 - Pure hypercholesterolemia, unspecified UA CC w/rflx Micro + Cult 4 Months R30.0 - Dysuria Vitamin D 25-OH Total 4 Months E55.9 - Vitamin D deficiency, unspecified
--- OUTSIDE RECORDS SUMMARY | 2025-04-27 11:53 | XMS_ITS | Encounter Summary ---
Author Organization [facility] Address [address] [place] [address] Care Team Providers Care Chemical Research Technician Name Role Phone Darien Monroe MD Unavailable [phone] Claude Steele MD Primary Care Provider [phone] Salvador Hurt MD Unavailable [phone] Encounter Details Date Type Department Care Team (Late st Contact Info) Description 01/26/2022 Scanned Document [facility] Neurosurgery [address] [phone] Neurosurgery, Scan Social History Tobacco Use Types [...] on filedocumented in this encounter Care Teams Chemical Research Technician Relationship Specialty Start Date End Date Claude Steele MD [address] [place] [address] [place] [address] PCP - General Internal Medicine 10/31/21 Darien Monroe MD [address] [place] [address] Physician Psychiatry, General 10/31/21 Salvador Hurt MD [address] [address] Surgery, Neurosurgery 02/08/22 documented as of this encounter
--- OUTSIDE RECORDS SUMMARY | 2025-04-27 11:53 | XMS_ITS | Encounter Summary ---
Author Organization [facility] Address [address] [facility] [address] [place] [phone] Phone Care Team Providers Care Vegetable Grader Name Role Phone Claude Steele MD Primary Care Provider [phone] Encounter Details Date Type Department Care Team (Late st Contact Info) Description 10/27/2021 Procedure Pass [facility], [address] [address] Social History Tobacco Use Types Packs/Day Years [...] on filedocumented in this encounter Care Teams Vegetable Grader Relationship Specialty Start Date End Date Claude Steele MD [address] [place] [address] [place] [address] PCP - General Internal Medicine 07/20/21 documented as of this encounter Additional Source Comments The information contained in this document represents components of the legal health record. It is not the complete legal health record.[facility]
--- OUTSIDE RECORDS SUMMARY | 2025-04-27 11:53 | XMS_ITS | Clinical Summary ---
Author Organization [facility] Address [address] [address] Phone Care Team Providers Care Resistor Coater Name Role Phone Claude Steele MD Primary Care Provider [phone] Allergies Active Allergy Reactions Criticality Noted Date [...] - 2024-2 6 season) 2025 09/18/2020, 08/21/2020 RSV VACCINE (1 - 1-dose 75+ series) 2043 HEPATITIS A VACCINES Aged Out No long [...] topic Medical Devices Not on file Insurance [employer] [facility] [employer] [facility] [employer] [facility] [employer] [facility] [facility] [employer] [facility] Care Teams Resistor Coater Relationship Specialty Start Date End Date Claude Steele MD [address] [place] [address] [place] [address] PCP - General Internal Medicine 07/20/21 Additional Source Comments The information contained in this document represents components of the legal health record. It is not the complete legal health record.[facility]
--- OUTSIDE RECORDS SUMMARY | 2025-04-27 11:53 | XMS_ITS | Encounter Summary ---
Author Organization [facility] Address [address] [place] [address] Care Team Providers Care Induction Coordination Engineer Name Role Phone Darien Monroe MD Unavailable [phone] Claude Steele MD Primary Care Provider [phone] Salvador Hurt MD Unavailable Encounter Details Date Type Department Care Team (Late st Contact Info) Description 04/10/2022 Scanned Document [facility] Neurosurgery [address] [phone] Neurosurgery, Scan Social History Tobacco Use Types [...] on filedocumented in this encounter Care Teams Induction Coordination Engineer Relationship Specialty Start Date End Date Claude Steele MD [address] [place] [address] Dr [address] [place] [address] PCP - General Internal Medicine 10/31/21 Darien Monroe MD [address] [place] [address] Physician Psychiatry, General 10/31/21 Salvador Hurt MD [address] [address] Surgery, Neurosurgery 02/08/22 documented as of this encounter
--- OUTSIDE RECORDS SUMMARY | 2025-04-27 11:53 | XMS_ITS | Patient Health Record ---
Author Organization [facility] Address [address] [place] [address] Care Team Providers Care Automotive Collision Repair Instructor Name Role Phone Cedric CRUZ, [place] Primary Care Provider Tuan Mata Jr [phone] Allergies Allergen (clinical drug ingredient) Drug/Non Drug Allergy documented on EMR Reaction Allergy Type Onset Date Status Amoxil Unknown Drug Allergy Active Sulfa Unknown Drug Allergy Active Reason For Referral No Information Medications Medication SIG (Take, Route, Frequency, Duration) Notes Start Date End Date Status Lorazepam 10 mg Acti ve vicodin 750 mg Activ e Flexeril 10 mg Activ e Prozac Active Suprep Bowel Prep 1 Solution as directed Orally 1; Duration: 1 dose 04/27/2015 Active Social History Social History Additional Details Category Social Info Options Details Miscellaneous: Marital status: single 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 Problems Problem Type SNOMED Code ICD Code Onset Dates Problem Status W/U Status Risk Notes Problem Rectal bleeding (21812296) Rectal bleeding (K62.5) Active confirmed Plan Of Treatment Future Test Test Name Order Date COLONOSCOPY 04/27/2015 Insurance Providers Payer Name Payer Address Payer Phone Subscriber Number Group Number Insured Name Patient Relationship to Insured Coverage Start Date Coverage End Date [facility] [id number] [place], [place] [id number] DARELL MENENDEZ Self - patient is the insured Medical (General) History Medical History History ICD Code colonoscopy 02-15-2010 colitis Denies SC,DM,CVA,Lung disease,renal dise ase ovarian cysts Surgical History Surgery Date(Month/Year) right shoulder surgery hysterectomy 2011
--- OUTSIDE RECORDS SUMMARY | 2025-04-27 11:53 | XMS_ITS | Clinical Summary ---
Author Organization [address] [place] [address] Address [address] [place] [address] Phone Care Team Providers Care Picture Painter Name Role Phone Claude Steele MD Primary [...] Cervical Cancer Screening: P ap Smear 09/08/2011 09/07/2008 Pneumococcal Vaccine: 50+ Years (1 of [...] Procedure Name Priority Date/Time Associated Diagnosis Comments PAP SMEAR Routine 09/07/2008 from Last 3 Months or Most Recently Relevant to Health Maintenance Results * Pap Smear (09/07/2008) Pap smear negative,a bstracted us Historical Provider MD HEALTH MAINTENANCE Final Result from Last 3 Months or Most Recently Relevant to Health Maintenance Insurance MEDICAID - [place] MEDICARE Care Teams Picture Painter Relationship Specialty Start Date End Date Claude Steele MD [address] [place] [address] Jose Roberto [address] [place] PCP - General Internal Medicine 12/30/17
--- OUTSIDE RECORDS SUMMARY | 2025-04-27 11:53 | XMS_ITS | Encounter Summary ---
Author Organization [facility] Address [address] [place] [address] Care Team Providers Care Customer Energy Specialist Name Role Phone Darien Monroe MD Unavailable [phone] Claude Steele MD Primary Care Provider [phone] Salvador Hurt MD Unavailable [phone] Encounter Details Date Type Department Care Team (Late st Contact Info) Description 10/23/2022 Scanned Document [facility] Neurosurgery [address] [phone] Lilia Sampson RN Social History Tobacco Use [...] filedocumented in this encounter Care Teams Customer Energy Specialist Relationship Specialty Start Date End Date Claude Steele MD [address] [place] [address] Dr Samuel [address] [place] [address] PCP - General Internal Medicine 10/31/21 Darien Monroe MD [address] [place] [address] Physician Psychiatry, General 10/31/21 Salvador Hurt MD [address] [place] [address] Surgery, Neurosurgery 02/08/22 documented as of this encounter
--- OUTSIDE RECORDS SUMMARY | 2025-04-27 11:54 | XMS_ITS | Encounter Summary ---
Author Organization [facility] Address [address] [place] [address] Care Team Providers Care Environmental Marketing Representative Name Role Phone Darien Monroe MD Unavailable Claude Steele MD Primary Care Provider [phone] Salvador Hurt MD Unavailable [phone] Encounter Details Date Type Department Care Team (Late st Contact Info) Description 02/22/2022 Scanned Document [facility] Neurosurgery [address] [phone] Salvador Hurt MD [address] [place] [address] Social History Tobacco Use Types Packs/Day [...] on filedocumented in this encounter Care Teams Environmental Marketing Representative Relationship Specialty Start Date End Date Claude Steele MD [address] [place] [address] [place] [address] PCP - General Internal Medicine 10/31/21 Darien Monroe MD [address] [place] [address] Physician Psychiatry, General 10/31/21 Salvador Hurt MD [address] [place] [address] [address] [place] [address] Surgery, Neurosurgery 02/08/22 documented as of this encounter
--- OUTSIDE RECORDS SUMMARY | 2025-04-27 11:54 | XMS_ITS | Clinical Summary ---
Author Organization [facility] Address [address] [place] [address] Care Team Providers Care Nuclear Cardiology Technologist Name Role Phone Darien Monroe MD Unavailable [phone] Claude Steele MD Primary Care Provider [phone] Salvador Hurt MD Unavailable Allergies Active Allergy Reactions Criticality Noted Date [...] COVID-19 Vaccine (3 - season) 2025, 08/21/2020 RSV Vaccine 50 years and old er and Patients (1 - 1-dose 75+ series) 2043 Medical Devices Implanted Type Area Plastic Mould Maker Device Identifier Shelf Expiration Date Model / Serial / Lot [id number]-90 System Spinal Fixation 50mm 7mm Ifuse-3d Implant 3ang - Sn/A Implanted:Qty: 1 on 02/28/2022 by Salvador Hurt MD at [facility] Spine Left: Sacrum [employer] 03/14/2026 [id number]-90 / N/A / [id number] System Spinal Fixation 45mm 7mm Ifuse Implant Sys 3ang - Sn/A Implanted:Qty: 1 on 02/28/2022 by Salvador Hurt MD at [facility] Spine Left: Sacrum [employer] 02/10/2026 7045M-90 / N/A / [id number] System Spinal Fixation 45mm 7mm Ifuse Implant Sys 3ang - Sn/A Implanted:Qty: 1 on 02/28/2022 by Salvador Hurt MD at [facility] Spine Left: Sacrum [employer] 02/20/2026 [id number]-90 / N/A / [id number] Insurance [employer] [facility] Member Subscriber Plan / Payer ( fective 2009-Present) Name:Dulce Junior Relation to Subscriber:Self Name:Dulce Junior Payer ID:[id number] (NAIC) Group ID:[id number] Type:Not on file Address: [address] [facility] Advance Directives * Full Code (Latest Code Status on File) Date Activated Date Inactivated Comments 02/28/2022 12:38 PM * Full Code Date Activated Date Inactivated Comments 02/28/2022 7:53 AM 02/28/2022 12:38 PM Care Teams Nuclear Cardiology Technologist Relationship Specialty Start Date End Date Claude Steele MD [address] [place] [place] [address] Dr Samuel [address] [place] [address] PCP - General Internal Medicine 10/31/21 Darien Monroe MD [address] [place] [address] Physician Psychiatry, General 10/31/21 Salvador Hurt MD [address] [place] [address] [address] [place] [address] Surgery, Neurosurgery 02/08/22
--- OUTSIDE RECORDS SUMMARY | 2025-04-27 11:54 | XMS_ITS | Clinical Summary ---
Author Organization [employer] Address [address] [facility] 7 [place] [address] Care Team Providers Care Logistics Technician Name Role Phone Unavailable Primary Care Provider [...] NEEDED FOR SLEEP 4 Active HYDROcodone-jacky taminophen (Coldiron) 7.5-325 MG tablet TAKE ONE TABLET BY [...] Most Recently Relevant to Health Maintenance Insurance [facility] MEDICAID STAND ADULT
--- OUTSIDE RECORDS SUMMARY | 2025-04-27 11:54 | XMS_ITS | Encounter Summary ---
Author Organization [facility] Address [address] [place] [address] Care Team Providers Care Boot Trimmer Name Role Phone Darien Monroe MD Unavailable [phone] Claude Steele MD Primary Care Provider [phone] Salvador Hurt MD Unavailable [phone] Encounter Details Date Type Department Care Team (Late st Contact Info) Description 02/07/[address] [facility] Neurosurgery [address] [phone] Social History Tobacco Use Types Packs/Day Years [...] on filedocumented in this encounter Care Teams Boot Trimmer Relationship Specialty Start Date End Date Claude Steele MD [address] [place] [address] [place] [address] PCP - General Internal Medicine 10/31/21 Darien Monroe MD [address] [place] [address] Physician Psychiatry, General 10/31/21 Salvador Hurt MD [address] [address] Surgery, Neurosurgery 02/08/22 documented as of this encounter
--- OUTSIDE RECORDS SUMMARY | 2025-04-27 11:54 | XMS_ITS | Encounter Summary ---
Author Organization [facility] Address [address] [place] [address] Care Team Providers Care Nurses' Aide Name Role Phone Darien Monroe MD Unavailable [phone] Claude Steele MD Primary Care Provider [phone] Salvador Hurt MD Unavailable [phone] Encounter Details Date Type Department Care Team (Late st Contact Info) Description 02/22/2022 Scanned Document [facility] Neurosurgery [address] [phone] [address] Social History Tobacco Use Types [...] on filedocumented in this encounter Care Teams Nurses' Aide Relationship Specialty Start Date End Date Claude Steele MD [address] [place] [address] PCP - General Internal Medicine 10/31/21 Darien Monroe MD [address] [place] [address] Physician Psychiatry, General 10/31/21 Salvador Hurt MD [address] [place] [address] Surgery, Neurosurgery 02/08/22 documented as of this encounter
== END 2025-04-27 12:11 | disposition home or self-care (01) ==
LOC: HO.HMCH 10:35
PROVIDERS: PCP Internal Medicine; Visit Provider Internal Medicine
DX: E78.00 Pure hypercholesterolemia, unspecified (principal); G43.909 Migraine, unspecified, not intractable, without status migrainosus; K29.70 Gastritis, unspecified, without bleeding; G90.512 Complex regional pain syndrome I of left upper limb; M47.812 Spondylosis without myelopathy or radiculopathy, cervical region; M47.26 Other spondylosis with radiculopathy, lumbar region; M18.12 Unilateral primary osteoarthritis of first carpometacarpal joint, left hand; R53.82 Chronic fatigue, unspecified; J30.9 Allergic rhinitis, unspecified; F41.9 Anxiety disorder, unspecified; F33.9 Major depressive disorder, recurrent, unspecified

== ENCOUNTER → 2025-04-27 10:34 | Outpatient (BNVA) | payer MEDICARE, MEDICAID, SELFPAY | PROVIDERS: PCP Internal Medicine; Visit Provider Internal Medicine | DX: G90.512 Complex regional pain syndrome I of left upper limb (principal); M47.26 Other spondylosis with radiculopathy, lumbar region; E78.00 Pure hypercholesterolemia, unspecified; M47.812 Spondylosis without myelopathy or radiculopathy, cervical region; G43.909 Migraine, unspecified, not intractable, without status migrainosus; K29.70 Gastritis, unspecified, without bleeding; J30.9 Allergic rhinitis, unspecified; M18.12 Unilateral primary osteoarthritis of first carpometacarpal joint, left hand; F41.9 Anxiety disorder, unspecified; F33.9 Major depressive disorder, recurrent, unspecified; Z13.31 Encounter for screening for depression; Z13.39 Encounter for screening examination for other mental health and behavioral disorders; Z79.899 Other long term (current) drug therapy | CPT/HCPCS: 96127; 99212 ==